=== PATIENT | male | born 1955 | race Caucasian/White ===

== ENCOUNTER → 2019-05-28 | Emergency (ER) | payer SELFPAY, OTHER | LOC: ER FS 16:36 ==

== ENCOUNTER 2023-05-08 09:34 | Inpatient (IN) | payer MEDICARE, MEDICAID ==
[~2023-05-08] VITALS: Ht 175.3 cm; Wt 65.0 kg
[~2023-05-08 09:34] MED LIST: HYDR-4226 PO; OXYC-199 PO
[2023-05-08] MEDS ORDERED: PANTOPRAZOLE 40 MG (PROTONIX) VIAL IV STA (09:53)
[2023-05-08] MEDS ORDERED: NS IV 1000 ML 1,000 ML IV STA ×3 (09:53→11:03)
[2023-05-08 10:13] LABS: BASOPHILS % (AUTO) 0 % (0-10); EOSINOPHILS # (AUTO) 0.1 10^3/uL (0.0-0.3); EOSINOPHILS % (AUTO) 0 % (0-10); HEMATOCRIT 36 % (40-54); HEMOGLOBIN 13.5 g/dL (13.3-17.7); LYMPHOCYTES # (AUTO) 0.8 10^3/uL (1.0-4.0); LYMPHOCYTES % (AUTO) 5 % (12-44); MEAN CORPUSCULAR HEMOGLOBIN 36 pg (25-34); MEAN CORPUSCULAR HGB CONC 37 g/dL (32-36); MEAN CORPUSCULAR VOLUME 97 fL (80-99); MEAN PLATELET VOLUME 10.2 fL (9.0-12.2); MONOCYTES # (AUTO) 0.9 10^3/uL (0.0-1.0); MONOCYTES % (AUTO) 6 % (0-12); NEUTROPHILS # (AUTO) 14.7 10^3/uL (1.8-7.8); NEUTROPHILS % (AUTO) 89 % (42-75); PLATELET COUNT 272 10^3/uL (130-400); WHITE BLOOD COUNT 16.6 10^3/uL (4.3-11.0)
--- NOTE | 2023-05-08 10:16 | ED General ---
General Stated Complaint: BRADYCARDIA; LOW BP Source of Information: Patient, Family (Son) Exam Limitations: Other (slow to answer questions) History of Present Illness Date Seen by Provider: May 08, 2023 Time Seen by Provider: 09:37 Initial Comments 68-year-old male presenting with complaints of over 3 weeks of decreased appetite, nausea, vomiting, orange-colored stools, general weakness, frequent falls. His son reports that normally they talk on the phone at least a few times a week and they had not been able to reach him over the last 3 weeks. When they came on Saturday to check on him he would only eat a small amount of any food but had been drinking water. He does have a history of drinking bourbon whiskey on a daily basis but denies having any alcohol for over a week. The son reports that his stools have been orange-colored and they were concerned that there was some blood mixed in with them. This morning when the son arrived at his father's house he found that his father had fallen in the shower. He helped him get up and states that his father had passed out while he was trying to walk out of the bathroom. He does have multiple bruises in various stages of healing from frequent falls. He denies hitting his head or having headache. He denies having abdominal pain but has been having a lot of epigastric pain and been using a lot of Tums for heartburn and indigestion. Son reports that he felt like his father had lost 50 to 75 pounds over the last 3 to 4 months. The patient does live alone and is usually able to take care of himself and his daily activities however in the last few weeks he has had a sudden rapid decline. They had tried to go to see the Dr. Sheth in the clinic today and they referred him to the emergency department as he had a low blood pressure around 80 systolic. On arrival to the emergency department here his blood pressures been anywhere from 80-104 systolic over 63-67 diastolic. Modifying Factors: improves with Movement (syncope and fainting with standing and walking) Associated Systoms: No Chest Pain, No Cough, No Diaphoresis, No Fever/Chills, No Headaches; Loss of Appetite, Malaise, Nausea/Vomiting; No Seizure, No Shortness of Air; Syncope, Weakness (generalized) Allergies and Home Medications Allergies Coded Allergies: No Known Drug Allergies (Unverified , 05/28/19) Patient Home Medication List Home Medication List Reviewed: Yes Oxycodone HCl/Acetaminophen (Percocet 5-325 mg Tablet) 1 Each Tablet, 1 TAB PO Q4H PRN for PAIN-MODERATE Prescribed by: ENZO BROTHERS on 05/28/19 8203 Review of Systems Review of Systems Constitutional: No chills, No fever; malaise, weakness EENTM: other (dry mouth) Respiratory: No cough, No short of breath Cardiovascular: No chest pain, No edema Gastrointestinal: heartburn, nausea, vomiting, other (orange colored stools) Genitourinary: No dysuria Musculoskeletal: No back pain; muscle weakness (generalized) Skin: see HPI Psychiatric/Neurological: Denies Headache; Weakness (general) Hematologic/Lymphatic: Easy Bruising Past Kmmphyx-Rebylu-Vfzfek Hx Patient Social History Alcohol Use?: Yes Alcohol type: Hard Liquor Alcohol Frequency: Daily Seasonal Allergies Seasonal Allergies: No Past Medical History Surgery/Hospitalization HX: Hypertension, Tremors, Alcoholism Surgeries: Yes ("lazy eye" surgery) Respiratory: No Cardiac: Yes Hypertension Neurological: No Sexually Transmitted Disease: No Genitourinary: No Gastrointestinal: Yes Gastroesophageal Reflux Musculoskeletal: No Endocrine: No HEENT: No Cancer: No Psychosocial: Yes Anxiety Integumentary: No Blood Disorders: No Physical Exam Vital Signs Vital Signs - First Documented 05/08/23 09:37 Temp 35.6 Pulse 85 Resp 16 B/P (MAP) 88/75 (79) Pulse Ox 97 O2 Delivery Room Air Capillary Refill : Height, Weight, BMI Height: 5'7.00" Weight: 192lbs. oz. 87.534899ep; BMI Method:Stated General Appearance: Chronically ill, Thin, Other (multiple bruises in various stages of healing in various areas of body) HEENT: PERRL/EOMI; No Moist Mucous Membranes (dry mucous membranes with thick white mucous) Neck: Full Range of Motion, Normal Inspection, Non Tender, Supple Respiratory: Chest Non Tender, Lungs Clear, Normal Breath Sounds, No Accessory Muscle Use, No Respiratory Distress Cardiovascular: Regular Rate, Rhythm, Normal Peripheral Pulses Gastrointestinal: Normal Bowel Sounds, No Pulsatile Mass, Non Tender, Soft Rectal: Decreased Tone, Heme Positive Stool, Other (felt to have fecal impa ction as he had large amount of stool that was firm and orange in color. I did digital disimpaction to remove some of the harder stool and break up what was in his rectum) Back: No CVA Tenderness, No Vertebral Tenderness Extremity: Normal Capillary Refill, Normal Inspection, No Pedal Edema Neurologic/Psychiatric: Alert, Oriented x3, account assistant II-XII Norm as Tested Skin: Warm/Dry, Ecchymosis (various bruises in multiple areas in various stages of healing), Pallor Focused Exam Lactate Level 05/08/23 09:57: Lactic Acid Level 5.09*H 05/08/23 12:25: Lactic Acid Level 2.27*H Lactic Acid Level Laboratory Tests Test 05/08/23 09:57 05/08/23 12:25 Lactic Acid Level 5.09 MMOL/L (0.50-2.00) *H 2.27 MMOL/L (0.50-2.00) *H Progress/Results/Core Measures Suspected Sepsis SIRS Temperature: Pulse: Respiratory Rate: Laboratory Tests 05/08/23 09:57: White Blood Count 16.6H Blood Pressure / Mean: 05/08/23 09:57: Lactic Acid Level 5.09*H 05/08/23 12:25: Lactic Acid Level 2.27*H Laboratory Tests 05/08/23 09:57: Creatinine 2.44H, INR Comment 1.4, Platelet Count 272, Total Bilirubin 3.6H Results/Orders Lab Results Laboratory Tests Test 05/08/23 09:57 05/08/23 10:45 05/08/23 12:25 Range/Units White Blood Count 16.6 H 4.3-11.0 10^3/uL Red Blood Count 3.76 L 4.30-5.52 10^6/uL Hemoglobin 13.5 13.3-17.7 g/dL Hematocrit 36 L 40-54 % Mean Corpuscular Volume 97 80-99 fL Mean Corpuscular Hemoglobin 36 H 25-34 pg Mean Corpuscular Hemoglobin Concent 37 H 32-36 g/dL Red Cell Distribution Width 13.7 10.0-14.5 % Platelet Count 272 130-400 10^3/uL Mean Platelet Volume 10.2 9.0-12.2 fL Immature Granulocyte % (Auto) 1 % Neutrophils (%) (Auto) 89 H 42-75 % Lymphocytes (%) (Auto) 5 L 12-44 % Monocytes (%) (Auto) 6 0-12 % Eosinophils (%) (Auto) 0 0-10 % Basophils (%) (Auto) 0 0-10 % Neutrophils # (Auto) 14.7 H 1.8-7.8 10^3/uL Lymphocytes # (Auto) 0.8 L 1.0-4.0 10^3/uL Monocytes # (Auto) 0.9 0.0-1.0 10^3/uL Eosinophils # (Auto) 0.1 0.0-0.3 10^3/uL Basophils # (Auto) 0.0 0.0-0.1 10^3/uL Immature Granulocyte # (Auto) 0.2 H 0.0-0.1 10^3/uL Neutrophils % (Manual) 79 % Lymphocytes % (Manual) 6 % Monocytes % (Manual) 5 % Eosinophils % (Manual) 0 % Basophils % (Manual) 0 % Band Neutrophils 10 % Nucleated Red Blood Cells 2 Platelet Estimate NORMAL Hypochromasia SLIGHT Macrocytosis SLIGHT Prothrombin Time 17.2 H 12.2-14.7 SEC INR Comment 1.4 0.8-1.4 Activated Partial Thromboplast Time 32 24-35 SEC Sodium Level 127 L 135-145 MMOL/L Potassium Level 3.6 3.6-5.0 MMOL/L Chloride Level 78 L 98-107 MMOL/L Carbon Dioxide Level 28 21-32 MMOL/L Anion Gap 21 H 5-14 MMOL/L Blood Urea Nitrogen 68 H 7-18 MG/DL Creatinine 2.44 H 0.60-1.30 MG/DL Estimat Glomerular Filtration Rate 28 BUN/Creatinine Ratio 28 Glucose Level 220 H 70-105 MG/DL Lactic Acid Level 5.09 *H 2.27 *H 0.50-2.00 MMOL/L Calcium Level 11.5 H 8.5-10.1 MG/DL Corrected Calcium 11.7 H 8.5-10.1 MG/DL Magnesium Level 2.1 1.6-2.4 MG/DL Total Bilirubin 3.6 H 0.1-1.0 MG/DL Aspartate Amino Transf (AST/SGOT) 28 5-34 U/L Alanine Aminotransferase (ALT/SGPT) 36 0-55 U/L Alkaline Phosphatase 126 40-136 U/L Troponin I < 0.30 <0.30 NG/ML Pro-B-Type Natriuretic Peptide 1452.0 H <125.0 PG/ML Total Protein 6.9 6.4-8.2 GM/DL Albumin 3.7 3.2-4.5 GM/DL Lipase 19 8-78 U/L Serum Alcohol < 10 <10 MG/DL Ammonia 31 11-32 UMOL/L Urine Color ORANGE Urine Clarity SL CLOUDY Urine pH 5.5 5-9 Urine Specific [place] 1.020 1.016-1.022 Urine Protein TRACE H NEGATIVE Urine Glucose (UA) NEGATIVE NEGATIVE Urine Ketones TRACE H NEGATIVE Urine Nitrite POSITIVE H NEGATIVE Urine Bilirubin 2+ H NEGATIVE Urine Urobilinogen 4.0 < = 1.0 MG/DL Urine Leukocyte Esterase NEGATIVE NEGATIVE Urine RBC (Auto) 2+ H NEGATIVE Urine RBC 10-25 H /HPF Urine WBC 2-5 /HPF Urine Squamous Epithelial Cells NONE /HPF Urine Crystals NONE /LPF Urine Bacteria FEW H /HPF Urine Casts PRESENT /LPF Urine Hyaline Casts >50 H /LPF Urine Mucus MODERATE H /LPF Urine Culture Indicated YES Urine Opiates Screen NEGATIVE NEGATIVE Urine Oxycodone Screen NEGATIVE NEGATIVE Urine Methadone Screen NEGATIVE NEGATIVE Urine Propoxyphene Screen NEGATIVE NEGATIVE Urine Barbiturates Screen NEGATIVE NEGATIVE Ur Tricyclic Antidepressants Screen NEGATIVE NEGATIVE Urine Phencyclidine Screen NEGATIVE NEGATIVE Urine Amphetamines Screen NEGATIVE NEGATIVE Urine Methamphetamines Screen NEGATIVE NEGATIVE Urine Benzodiazepines Screen POSITIVE H NEGATIVE Urine Cocaine Screen NEGATIVE NEGATIVE Urine Cannabinoids Screen NEGATIVE NEGATIVE My Orders Orders - ASHLEY DASH MD Cbc With Automated Diff (05/08/23 09:53) Magnesium (05/08/23 09:53) Ekg Tracing (05/08/23 09:53) Comprehensive Metabolic Panel (05/08/23 09:53) Protime With Inr (05/08/23 09:53) Partial Thromboplastin Time (05/08/23 09:53) O2 (05/08/23 09:53) Monitor-Rhythm Ecg Trace Only (05/08/23 09:53) Ed Iv/Invasive Line Start (05/08/23 09:53) Lipase (05/08/23 09:53) Troponin I Fs (05/08/23 09:53) Probnp Fs (05/08/23 09:53) Ct Chest/Abdomen/Pelvis W (05/08/23 09:53) Blood Culture (05/08/23 09:53) Lactic Acid Analyzer (05/08/23 09:53) Ns Iv 1000 Ml (Sodium Chloride 0.9%) (05/08/23 09:53) Pantoprazole Injection (Protonix Injecti (05/08/23 09:53) Ua Culture If Indicated (05/08/23 09:53) Alcohol (05/08/23 09:53) Drug Screen Stat (Urine) (05/08/23 09:53) Ct Head/Cervical Spine Wo (05/08/23 09:53) Manual Differential (05/08/23 09:57) Ns Iv 1000 Ml (Sodium Chloride 0.9%) (05/08/23 10:34) Ondansetron Injection (Zofran Injectio (05/08/23 10:34) Ammonia (05/08/23 10:44) Ceftriaxone Iv/Im (Rocephin Iv/Im) (05/08/23 11:03) Antacid Suspension (Mylanta Suspension (05/08/23 11:03) Ns Iv 1000 Ml (Sodium Chloride 0.9%) (05/08/23 11:03) Fecal Occult Bedside (05/08/23 11:08) Iohexol Injection (Omnipaque 350 Mg/Ml 1 (05/08/23 11:15) Received Contrast (Hold Metformin- Contr (05/08/23 11:15) Ns (Ivpb) (Sodium Chloride 0.9% Ivpb Bag (05/08/23 11:15) Moyer Cath (05/08/23 11:51) Ed Admission (Communication) (05/08/23 12:00) Urine Culture (05/08/23 12:25) Medications Given in ED Current Medications Medications Dose Ordered Sig/Cristiane Route Start Time Stop Time Status Last Admin Dose Admin Iohexol 100 ml ONCE ONCE IV 05/08/23 11:15 05/08/23 11:17 DC 05/08/23 11:18 50 ML Sodium Chloride 100 ml ONCE ONCE IV 05/08/23 11:15 05/08/23 11:17 DC 05/08/23 11:18 100 ML Vital Signs/I&O 05/08/23 05/08/23 09:37 12:55 Temp 35.6 35.6 Pulse 85 88 Resp 16 16 B/P (MAP) 88/75 (79) 110/66 Pulse Ox 97 96 O2 Delivery Room Air Room Air Capillary Refill : Progress Note #1: Progress Note Potential life-threatening diagnosis of esophageal varices, peptic ulcer disease, alcoholic gastritis, colitis, diverticulitis, dehydration, liver failure, renal failure, myocardial infarction, GI bleed, sepsis. Obtain peripheral IV access x2 and send labs for complete blood count, comprehensive metabolic profile, alcohol, pro time, PTT, troponin, proBNP, lipase, urinalysis, urine drug screen. Placed on cardiac youth nutritional monitor and initially his heart rate and rhythm on my personal interpretation was sinus rhythm with a heart rate of around 100 bpm with frequent PVCs. Obtain electrocardiogram to further delineate his heart rate and rhythm and look for signs of ischemia. Administer normal saline 1 L IV fluid bolus for hydration, pantoprazole 40 mg IV for possible gastritis and peptic ulcer disease. With his Hemoccult bedside test showing positive and having orange-colored stool will add an additional liter of normal saline for IV fluid hydration. Added blood cultures with lactic acid to look for signs of infection and/or sepsis or ischemic bowel. CT scan of the chest abdomen and pelvis with IV contrast to look for signs of esophageal varices, pulmonary mass, bowel perforation, ischemic bowel, colitis, diverticulitis, bowel mass. CT scan of the head without IV contrast to look for signs of intracranial hemorrhage, skull fracture, stroke with his complaint of generalized weakness and syncope with standing and moving as well as frequent falls and some confusion. Anticipate transfer to a hospital setting based on his findings of hypotension, syncope, GI bleed. Progress Note #2: Time: 10:33 Progress Note Lab called to inform us that his lactic acid was elevated to 5.09. His complete blood count showed an elevated white blood cell count of 16.6 with 89% ne utrophils and 5% lymphocytes. His hemoglobin was 13.5 with hematocrit of 36 and platelets of 272. His coagulation factors showed a pro time of 17.2 with an INR of 1.4 and PTT of 32. This is slightly elevated to go along with possible cirrhosis or liver disease. He is not severely anemic to indicate the large amount of bleeding with his gut since he was heme positive on his Hemoccult but his hemoglobin is low normal at 13.5. We will add on a gram of Rocephin or ceftriaxone IV for possible sepsis, esophageal varices, alcohol gastritis, peptic ulcer disease. We will order another liter of fluid at 250 mils an hour after the initial 2 L bolus. His blood pressure has improved to 100-110 systolic as he is receiving IV fluid for hydration. Progress Note #3: Time: 11:00 Progress Note Add on an ammonia level with the patient's confusion at times and having a history of alcoholism. His comprehensive metabolic profile showed elevated BUN to 68 with a creatinine of 2.44. Part of the BUN elevation could be related to GI bleeding. He also could be dehydrated as he has not been eating and drinking normally. With the elevation of his creatinine to 2.44 he likely is dehydrated as well however I do not have any baseline labs for comparison. He does show a low sodium of 127 with potassium low normal at 3.6. Chloride low at 78 and CO2 normal at 28. His glucose was slightly elevated to 220. His total bilirubin was elevated to 3.6 but his other liver enzymes were not elevated. This might be related back to again hydration as well as GI bleeding and cirrhosis. His troponin I was less than 0.3 which would be negative. His alcohol level was less than 10. Lipase was normal at 19. His proBNP was elevated to 1452. He was asking for something for heartburn and indigestion so a dose of Maalox was ordered in addition to Zofran 4 mg IV. Continue the IV fluids at 250 mils an hour. His heart rate is 82 sinus rhythm with oxygen sat of 99 to 100% on room air. Blood pressure staying stable around 110 systolic. 1126 on my personal interpretation and review of the CT scan of the head and cervical spine without IV contrast I did not appreciate any acute intracranial hemorrhage or fracture. He did have advanced atrophy. His cervical spine showed degenerative changes. His CT scan of the chest abdomen and pelvis with IV contrast on my personal interpretation and review I did not appreciate any acute pneumonia, bowel perforation or free air, colitis, diverticulitis. He did appear to have calcified gallstone in the gallbladder but I did not appreciate any acute pericholecystic fluid or signs of cholecystitis. Progress Note #4: Time: 11:54 Progress Note d/w Dr. Moore, Hospitalist for [facility] admits today. Advised her of the patient's presentation with low blood pressure of 80 systolic but improved with IV fluids and hydration. Found to have positive Hemoccult for GI bleed. However his hemoglobin was stable at 13.5. He did have an elevated white count of 16.6 with 79 neutrophils and 10% bands on manual differential. Elevated lactic acid of 5.09 which was being treated with IV fluids as well as he was given 1 g of Rocephin IV in case there was infection. His kidney function was elevated with a BUN of 68 which could indicate his GI bleed as well as dehydration and creatinine of 2.44. There is no baseline for comparison. He did have an elevated total bilirubin to 3.6 but AST and ALT were not elevated. Troponin was negative at less than 0.3. His he did have an elevated proBNP of 1452. She admitted to him to the ICU as an inpatient admission and plan to do queued o rders. She did request I speak with Dr. Lancaster the on-call surgeon of the day so that he was aware of the patient as well. I advised her I was having nurses place a moyer to document his urine output and watch his Input and output more accurately. 1249 Repet lactic acid down to 2.27 from 5.09 as he was hydrated with 2 liters of Normal saline as bolus and then getting a 3rd liter of NS at 250 ml/hr. Urinalysis showed mild elevation of the specific gravity to 1.020. He did have positive nitrites and 2+ bilirubin with 10-25 red blood cells a few bacteria and greater than 50 hyaline casts. He did receive 1 g of Rocephin IV for possible sepsis with his elevated lactic acid and white blood cell count. This could certainly be a source for infection with his urine showing nitrites and hyaline cast. A culture was reflexed. ECG Initial ECG Impression Date: May 08, 2023 Initial ECG Impression Time: 10:14 Initial ECG Rate: 88 Initial ECG Rhythm: Normal Sinus Initial ECG Comparisson: No Previous ECG Available Comment On my personal interpretation and review his electrocardiogram shows sinus rhythm with frequent premature supraventricular complexes. Heart rate is 88 bpm. UT interval 207 ms. QT interval 404 ms with a QTc interval [address] elevation. Has global T wave flattening. There is no prior tracing for comparison. Diagnostic Imaging Diagonstic Imaging: CT Plain Films/CT/US/NM/MRI: c-spine, head Comments [facility] NAME: JAMILAH BLEDSOE Leonel [facility] REC#: [id number] PT STATUS: REG ER : 1955 PHYSICIAN: ASHLEY DASH MD ADMIT DATE: 05/08/23/ER FS Draft Date of Exam:05/08/23 CT HEAD/CERVICAL SPINE WO PROCEDURE: CT head and CT cervical spine without contrast. TECHNIQUE: Multiple contiguous axial images were obtained through the brain and cervical spine without the use of intravenous contrast. Sagittal and coronal reformations through the cervical spine were then performed. Auto Exposure Controls were utilized during the CT exam to meet ALARA standards for radiation dose reduction. INDICATION: Fall with head and neck pain. COMPARISON: No prior studies are available for comparison. FINDINGS: CT HEAD: The ventricles and sulci are appropriate for the patient's age. No sulcal effacement or midline shift is identified. No acute intra-axial or extra-axial hemorrhage is detected. The cisterns are patent. The visualized paranasal sinuses are clear. IMPRESSION: No acute intracranial process is detected. CT CERVICAL SPINE: There is somewhat hyperlordotic curvature to the cervical spine. There is multilevel degenerative disc disease with variable disc space narrowing and marginal spurring. No fractures are identified. The prevertebral tissues are within normal limits. The odontoid is intact. IMPRESSION: Cervical spondylosis. No acute bony abnormality is detected. Dictated on workstation # [id number] Dict: 05/08/23 1123 Trans: 05/08/23 1131 [id number] Interpreted by: SHAYE OJEDA MD Electronically signed by: Reviewed: Reviewed by Me (I reviewed the radiologist report at 1152) Diagonstic Imaging: CT Plain Films/CT/US/NM/MRI: chest, abdomen, pelvis Comments [facility] [place] NAME: JAMILAH BLEDSOE [facility] REC#: [id number] PT STATUS: REG ER : 1955 PHYSICIAN: ASHLEY DASH MD ADMIT DATE: 05/08/23/ER FS Draft Date of Exam:05/08/23 CT CHEST/ABDOMEN/PELVIS W PROCEDURE: CT chest, abdomen, and pelvis with contrast. TECHNIQUE: Multiple contiguous axial images were obtained through the chest, abdomen, and pelvis after the administration of intravenous contrast. Auto Exposure Controls were utilized during the CT exam to meet ALARA standards for radiation dose reduction. INDICATION: Weight loss with gastrointestinal bleed as well as nausea and vomiting, heartburn and epigastric pain. No prior studies are available for comparison. CT CHEST: The esophagus is diffusely thick walled. No axillary lymphadenopathy is identified. No definite mediastinal or hilar lymphadenopathy is detected. No pericardial or pleural fluid is identified. No pulmonary infiltrates, nodules or masses are detected. IMPRESSION: There is diffuse wall thickening to the esophagus, perhaps owing to esophagitis. No other significant abnormality is detected. CT abdomen and pelvis: There is generalized low attenuation throughout the liver. No discrete liver mass is identified. Gallbladder contains a small stone. There is no biliary ductal dilatation. The pancreas and spleen are unremarkable. No adrenal mass is identified. Kidneys contain tiny cortical low-attenuation lesions suggestive of a small cysts. Aorta is heavily calcified but nonaneurysmal. No central retroperitoneal or mesenteric lymphadenopathy is detected. Small and large bowel loops are normal in caliber. There is no obstruction. No inflammatory changes in the abdomen or pelvis is seen. There is no free fluid or fluid collection. The bladder and prostate are unremarkable. There is a small fat-containing left inguinal hernia. No pelvic lymphadenopathy is detected. Bony structures are unremarkable. IMPRESSION: 1. Hepatic steatosis. 2. Cholelithiasis. 3. Otherwise unremarkable CT of the abdomen and pelvis. No lymphadenopathy, mass or acute process is detected. 4. Fat-containing left inguinal hernia. Dictated on workstation # [id number] Dict: 05/08/23 1128 Trans: 05/08/23 1138 [facility] [id number] Interpreted by: SHAYE OJEDA MD Electronically signed by: Reviewed: Reviewed by Me (I reviewed the radiologist report at 1152) Critical Care Note Critical Care Total Time (minutes) 75 minutes Progress I spent at least 75 minutes of critical care time with the patient. Time excludes separately billable procedures. Time was spent obtaining history from the patient, his son as an independent historian as the patient did have some confusion and confabulation. Time was also spent in ordering test and reviewing results, ordering interventions and reviewing response, discussion with consultants, discussion with patient and his son as an independent alliance party due to the patient's encephalopathy, documentation in the chart. Patient was at risk of cardiovascular collapse as well as sepsis and renal failure. This required my immediate and direct intervention and management to help stabilize his condition and arrange for transfer to a higher level of care. Departure Communication (Admissions) Time/Spoke to Admitting Phy: 11:54 d/w Dr. Moore, Hospitalist for [facility] admits today. Advised her of the patient's presentation with low blood pressure of 80 systolic but improved with IV fluids and hydration. Found to have positive Hemoccult for GI bleed. However his hemoglobin was stable at 13.5. He did have an elevated white count of 16.6 with 79 neutrophils and 10% bands on manual differential. Elevated lactic acid of 5.09 which was being treated with IV fluids as well as he was given 1 g of Rocephin IV in case there was infection. His kidney function was elevated with a BUN of 68 which could indicate his GI bleed as well as dehydration and creatinine of 2.44. There is no baseline for comparison. He did have an elevated total bilirubin to 3.6 but AST and ALT were not elevated. Troponin was negative at less than 0.3. His he did have an elevated proBNP of 1452. She admitted to him to the ICU as an inpatient admission and plan to do queued orders. She did request I speak with Dr. Lancaster the on-call surgeon of the day so that he was aware of the patient as well. I advised her I was having nurses place a moyer to document his urine output and watch his Input and output more accurately. Time/Spoke to Consulting Phy: 11:56 D/w Dr. Lancaster, immigration paralegal Surgeon for [facility]. Advised him of the patient being admitted to the ICU for GI bleed and hypotension with dehydration and acute kidney injury. Currently his hemoglobin was stable and he was not anemic or requiring transfusion. Blood pressure was improving with IV fluids and hydration. Given Protonix [address] Cano will be placing queued orders Impression Primary Impression: GI bleed Qualified Codes: K92.2 - Gastrointestinal hemorrhage, unspecified Additional Impressions: Syncope Qualified Codes: R55 - Syncope and collapse Hypotension Qualified Codes: I95.9 - Hypotension, unspecified Acute kidney injury Dehydration Elevated lactic acid level Acute cystitis with hematuria Acute metabolic encephalopathy Disposition: 30 STILL A PATIENT Condition: Critical Admissions Decision to Admit Reason: Admit from ER (General) Decision to Admit/Date: May 08, 2023 Time/Decision to Admit Time: 11:54 Departure-Patient Inst. Referrals: SELF,GRABIEL MD (PCP) Primary Care Physician ASHLEY DASH MD May 08, 2023 10:16
[2023-05-08 10:27] LABS: INR 1.4 (0.8-1.4); PROTHROMBIN TIME PATIENT 17.2 SEC (12.2-14.7)
[2023-05-08] MEDS ORDERED: ONDANSETRON 4 MG/2 ML (SDV) Z0FRAN IVP STA (10:34)
[2023-05-08 10:45] LABS: ALANINE AMINOTRANSFERASE 36 U/L (0-55); ALKALINE PHOSPHATASE 126 U/L (40-136); BILIRUBIN,TOTAL 3.6 MG/DL (0.1-1.0); BUN/CREATININE RATIO 28; CALCIUM 11.5 MG/DL (8.5-10.1); CARBON DIOXIDE 28 MMOL/L (21-32); CHLORIDE 78 MMOL/L (98-107); CREATININE SERUM 2.44 MG/DL (0.60-1.30); GFR ESTIMATED 28; GLUCOSE 220 MG/DL (70-105); MAGNESIUM 2.1 MG/DL (1.6-2.4); POTASSIUM 3.6 MMOL/L (3.6-5.0); SODIUM 127 MMOL/L (135-145)
[2023-05-08 10:46] LABS: ALBUMIN 3.7 GM/DL (3.2-4.5); LIPASE 19 U/L (8-78); TOTAL PROTEIN 6.9 GM/DL (6.4-8.2)
[2023-05-08 10:53] LABS: BAND NEUTROPHILS 10 %; BASOPHILS % (MANUAL) 0 %; EOSINOPHILS % (MANUAL) 0 %; LYMPHOCYTES % (MANUAL) 6 %; MONOCYTES % (MANUAL) 5 %; NEUTROPHILS % (MANUAL) 79 %; NUCLEATED RED BLOOD CELLS 2
[2023-05-08 10:54] LABS: HYPOCHROMASIA SLIGHT; PLATELET ESTIMATE NORMAL
[2023-05-08] MEDS ORDERED: ANTACID SUSP 30 ML UDC (MYLANTA) PO STA (11:03)
[2023-05-08] MEDS ORDERED: cefTRIAXone IV/IM 1,000 MG in NS (IVPB) 50 ML IV STA (11:03)
[2023-05-08] MEDS ORDERED: IOHEXOL 350 MG/ML 100 ML (OMNIPAQUE 350) VIAL IV ONE (11:15)
[2023-05-08] MEDS ORDERED: NS 100 ML (IVPB) BAG IV ONE (11:15)
[2023-05-08] MEDS ORDERED: HOLD METFORMIN - RECEIVED CONTRAST 20 ML VIAL IV SCH (11:15)
--- NOTE | 2023-05-08 11:31 | Diagnostic Imaging Report ---
PROCEDURE: CT head and CT cervical spine without contrast. TECHNIQUE: Multiple contiguous axial images were obtained through the brain and cervical spine without the use of intravenous contrast. Sagittal and coronal reformations through the cervical spine were then performed. Auto Exposure Controls were utilized during the CT exam to meet ALARA standards for radiation dose reduction. INDICATION: Fall with head and neck pain. COMPARISON: No prior studies are available for comparison. FINDINGS: CT HEAD: The ventricles and sulci are appropriate for the patient's age. No sulcal effacement or midline shift is identified. No acute intra-axial or extra-axial hemorrhage is detected. The cisterns are patent. The visualized paranasal sinuses are clear. IMPRESSION: No acute intracranial process is detected. CT CERVICAL SPINE: There is somewhat hyperlordotic curvature to the cervical spine. There is multilevel degenerative disc disease with variable disc space narrowing and marginal spurring. No fractures are identified. The prevertebral tissues are within normal limits. The odontoid is intact. IMPRESSION: Cervical spondylosis. No acute bony abnormality is detected. Dictated by: Dictated on workstation # [id number]
--- NOTE | 2023-05-08 11:38 | Diagnostic Imaging Report ---
PROCEDURE: CT chest, abdomen, and pelvis with contrast. TECHNIQUE: Multiple contiguous axial images were obtained through the chest, abdomen, and pelvis after the administration of intravenous contrast. Auto Exposure Controls were utilized during the CT exam to meet ALARA standards for radiation dose reduction. INDICATION: Weight loss with gastrointestinal bleed as well as nausea and vomiting, heartburn and epigastric pain. No prior studies are available for comparison. CT CHEST: The esophagus is diffusely thick walled. No axillary lymphadenopathy is identified. No definite mediastinal or hilar lymphadenopathy is detected. No pericardial or pleural fluid is identified. No pulmonary infiltrates, nodules or masses are detected. IMPRESSION: There is diffuse wall thickening to the esophagus, perhaps owing to esophagitis. No other significant abnormality is detected. CT abdomen and pelvis: There is generalized low attenuation throughout the liver. No discrete liver mass is identified. Gallbladder contains a small stone. There is no biliary ductal dilatation. The pancreas and spleen are unremarkable. No adrenal mass is identified. Kidneys contain tiny cortical low-attenuation lesions suggestive of a small cysts. Aorta is heavily calcified but nonaneurysmal. No central retroperitoneal or mesenteric lymphadenopathy is detected. Small and large bowel loops are normal in caliber. There is no obstruction. No inflammatory changes in the abdomen or pelvis is seen. There is no free fluid or fluid collection. The bladder and prostate are unremarkable. There is a small fat-containing left inguinal hernia. No pelvic lymphadenopathy is detected. Bony structures are unremarkable. IMPRESSION: 1. Hepatic steatosis. 2. Cholelithiasis. 3. Otherwise unremarkable CT of the abdomen and pelvis. No lymphadenopathy, mass or acute process is detected. 4. Fat-containing left inguinal hernia. Dictated by: Dictated on workstation # [id number]
[2023-05-08 12:33] LABS: CLARITY,URINE SL CLOUDY; COLOR,URINE ORANGE; GLUCOSE, URINE (UA) NEGATIVE (NEGATIVE); KETONES,URINE TRACE (NEGATIVE); LEUKOCYTE ESTERASE ,URINE NEGATIVE (NEGATIVE); NITRITE,URINE POSITIVE (NEGATIVE); PH,URINE 5.5 (5-9); PROTEIN,URINE TRACE (NEGATIVE)
[2023-05-08 12:44] LABS: BACTERIA,URINE FEW /HPF; BILIRUBIN,URINE 2+ (NEGATIVE)
[2023-05-08 12:45] LABS: HYALINE CASTS, URINE >50 /LPF
[2023-05-08 12:46] LABS: AMPHETAMINE SCREEN, URINE NEGATIVE (NEGATIVE); BARBITURATE SCREEN URINE NEGATIVE (NEGATIVE); BENZODIAZEPINES SCREEN URINE POSITIVE (NEGATIVE); CANNABINOID SCREEN, URINE NEGATIVE (NEGATIVE); COCAINE SCREEN URINE NEGATIVE (NEGATIVE); METHADONE STAT NEGATIVE (NEGATIVE); OPIATE SCREEN URINE NEGATIVE (NEGATIVE); OXYCODONE STAT NEGATIVE (NEGATIVE); PROPOXYPHENE STAT NEGATIVE (NEGATIVE); TRICYCLIC ANTIDEPRESSANTS SCRE NEGATIVE (NEGATIVE)
--- NOTE | 2023-05-08 13:58 | History & Physical-Hospitalist ---
History of Present Illness HPI/Chief Complaint Chief complaint: GI bleed HPI: This is a 68-year-old male former alcoholic who presented to the ER with bloody stools. Patient not cooperating. Dr. Lancaster will be consulted. Alcohol withdrawal protocol maintain Banana bag once a day to prevent Korsakoff psychosis and Warnicke's encephalopathy. Source: patient, RN/MD, old records Exam Limitations: clinical condition Date Seen 05/08/23 Time Seen by a Provider: 13:00 Attending Physician Kodak Sheth MD PCP Admitting Physician: Malena Moore DO Attending Physician: Malena Moore DO Referring Physician Date of Admission May 08, 2023 at 13:48 Home Medications & Allergies Home Medications Reviewed patient Home Medication Reconciliation performed by pharmacy medication reconciliations application technician and/or nursing. Patients Allergies have been reviewed. Allergies Allergies Coded Allergies No Known Drug Allergies (Unverified05/28/19) Past Pnuqqxz-Uttuno-Klifjx Hx Patient Social History Marrital Status: single Employed/Student: retired Tobacco Use?: No Smoking Status: Current Everyday Smoker Use of E-Cig and/or Vaping dev: No Substance use?: No Alcohol Use?: Yes Alcohol type: Hard Liquor Additional alcohol type: [place] Alcohol Frequency: Daily Additional Alcohol Comments: Unknown amount reports last use 30 days ago Immunizations Up To Date First/Initial COVID19 Vaccinat: Denies Seasonal Allergies Seasonal Allergies: No Current Status Advance Directives: No Primary Language: Scottish Preferred Spoken Language: Scottish Past Medical History Hypertension Sexually Transmitted Disease: No Gastroesophageal Reflux Anxiety Blood Disorders: No Review of Systems Constitutional: see HPI Physical Exam Physical Exam Vital Signs Vital Signs - First Documented 05/08/23 05/08/23 09:37 19:35 Temp 35.6 Pulse 85 Resp 16 B/P (MAP) 88/75 (79) Pulse Ox 97 O2 Delivery Room Air O2 Flow Rate 0.00 FiO2 21 Capillary Refill : Less Than 3 Seconds Height, Weight, BMI Height: 5'7.00" Weight: 192lbs. oz. 87.447324qn; BMI Method:Stated General Appearance: Anxious, Chronically ill, Mild Distress, Thin Respiratory: Chest Non Tender, Lungs Clear, Normal Breath Sounds, No Accessory Muscle Use, No Respiratory Distress Cardiovascular: Regular Rate, Rhythm, No Edema, No Gallop, No JVD, No Murmur, Normal Peripheral Pulses Neurologic/Psychiatric: Alert, Depressed Affect, Disoriented Results Results/Procedures Labs Laboratory Tests 05/08/23 09:57 05/08/23 14:55 Patient resulted labs reviewed. Assessment/Plan Admission Diagnosis Assessment: GI bleed Alcoholism High risk for alcohol withdrawal Plan: [facility] ICU [facility] protocol Dr. Lancaster PPI Admission Status: Inpatient Order (span 2 midnights) Reason for Inpatient Admission: GI bleed MALENA MOORE DO May 08, 2023 13:58
[2023-05-08] MEDS ORDERED: ONDANSETRON 4 MG (ZOFRAN) ORAL DISSOLVE TAB PO PRN (14:30)
[2023-05-08] MEDS ORDERED: ONDANSETRON 4 MG (ZOFRAN) ORAL DISSOLVE TAB SL PRN (14:30)
[2023-05-08] MEDS ORDERED: diphenhydrAMINE 25 MG TAB (BENADRYL) PO PRN (14:30)
[2023-05-08] MEDS ORDERED: ANTACID SUSP 30 ML UDC (MYLANTA) PO PRN ×2 (14:30)
[2023-05-08] MEDS ORDERED: diphenhydrAMINE 50 MG/ML INJ (BENADRYL) IVP PRN (14:30)
[2023-05-08] MEDS ORDERED: ONDANSETRON 4 MG/2 ML (SDV) Z0FRAN IV PRN ×2 (14:30)
[2023-05-08] MEDS ORDERED: LACTULOSE SYRUP 10GM/15ML (ENULOSE) 30ML UDC PO PRN (14:30)
[2023-05-08] MEDS ORDERED: NS IV 500 ML 500 ML IV PRN (14:30)
[2023-05-08] MEDS ORDERED: SENNA W/DOCUSATE (SENOKOT S) TABLET PO PRN (14:30)
[2023-05-08] MEDS ORDERED: polyethylene glycoL POWDER 17 GM (MIRALAX) PACK PO PRN (14:30)
[2023-05-08] MEDS ORDERED: LORazepam 1 MG (ATIVAN) TAB PO PRN (14:30)
[2023-05-08] MEDS ORDERED: D5 1/2 NS 1000 ML IV SOLUTION 1,000 ML IV PRN (14:30)
[2023-05-08] MEDS ORDERED: LORazepam INJ 2 MG/ML (ATIVAN) VIAL IM/IV PRN (14:30)
[2023-05-08] MEDS ORDERED: MELATONIN 3 MG TABLET PO PRN (14:30)
[2023-05-08] MEDS ORDERED: 1/2 NS IV SOLUTION 1,000 ML IV PRN (14:30)
[2023-05-08] MEDS ORDERED: BISACODYL 10 MG SUPP (DULCOLAX) PR PRN (14:30)
[2023-05-08] MEDS ORDERED: LORazepam INJ 2 MG/ML (ATIVAN) VIAL IV PRN (14:30)
[2023-05-08] MEDS ORDERED: HYDROmorphone 2 MG/ML VIAL (DILAUDID) IV PRN (14:30)
[2023-05-08] MEDS ORDERED: ACETAMINOPHEN 325 MG TABLET PO PRN (14:30)
[2023-05-08] MEDS: THIAMINE INJECTION 100 MG, FOLIC ACID INJECTION 1 MG, VITAMIN MULTI INJECTION 10 ML, MA... IV SCH ×5 (15:19)
[2023-05-08 15:47] VITALS: BP 107/54
[2023-05-08] MEDS ORDERED: RT-ALBUTEROL SULF 2.5 MG/3 ML PRE-MIX VIAL INH PRN (16:00)
--- NOTE | 2023-05-08 16:42 | Diagnostic Imaging Report ---
EXAMINATION: US Abdomen limited. TECHNIQUE: Multiple real-time grayscale images were obtained over the right upper quadrant in various projections. HISTORY: Abdominal pain. COMPARISON: None available. FINDINGS: The liver is normal in size. The liver is normal in echogenicity. No focal lesions are seen. The portal vein is patent with hepatopedal flow. There are stones and sludge in the gallbladder. The gallbladder wall is slightly thickened measuring 0.4 cm. Sonographic Jerez sign is negative. Common duct is not seen due to bowel gas. There is no biliary ductal dilation. Pancreas is not well seen due to bowel gas. The right kidney is normal without hydronephrosis. IMPRESSION: 1. Stones and sludge in the gallbladder with mild wall thickening of the gallbladder which may represent cholecystitis. Consider HIDA for confirmation. Dictated by: Dictated on workstation # [id number]
--- NOTE | 2023-05-08 16:43 | Tele-ICU Consult ---
History of Present Illness History of Present Illness Date Seen by Provider: May 08, 2023 Time Seen by Provider: 16:43 Date of Admission History of Present Illness (Tele-ICU Physician , consultation as per request of PCP Service provided via interactive audio and video telecommunBrandtree E-CARE system to a patient admitted to ICU bed in [facility]. Available chart/ vitals / labs / Images reviewed H&P is from ER notes Patient's information available about PMH, Shx, Fhx allergy reviewed inEMR. ROS as per chart and RN report Now in ICU, hemodynamically stable Video assessment done using teleICU camera, rest of exam as per RN Discussed with RN. Hospital course: (05/08) 68 y/o - Syncope/Fall - GI Bleed (Hemacult +) - Hypotension. CT A/P = Cholelithiasis. A/P Hypotension - probably dehydration and LISA- improving with IVF - 3 L given = Infection and GIB less likely , w/up pending , empitic abx given ( CTchest , abd/pelvis - no acute abnormalities LISA - cont hydratiuon , monitor UO Suspected GIB - esophagitis by CT , gastritis with ETON ? - PPI IV - sx consulted Confusion - TME ? LISA Elev lactate - hypoperfusion - resolved with htdrataion Anemia - partially delutional , but GIB component is in consideration Hyponatremia - follow H/o ETOH use , last drink reportedly 1 w ago - follow on CIWA and vitamins s/p multiple falls - CTH and cerv spine - no abnormalities Lines : perip[h , (Central Line Necessity Reviewed) Ma: 05/08 OG: Nutrition: po Analgesia: Anxiety/ delirium VTE Prophylaxis: scd Stress Ulcer Prophylaxis: ppi bid Plans in collaboration with bedside consultants and IM MDs. Discussed with RN to reach out if any questions or concerns A total of 31 minutes of critical care time was devoted to this patient today, required to treat and/or prevent further deterioration of critical care condition ( as above ) I am remotely monitoring this patient from another state. I am unable to do the bedside exam, and history/physical and pertinent information is taken from oth er notes in the computer and bedside staff. Allergies and Home Medications Allergies Coded Allergies: No Known Drug Allergies (Unverified , 05/28/19) Home Medications Oxycodone HCl/Acetaminophen 1 Each Tablet, 1 TAB PO Q4H PRN for PAIN-MODERATE Prescribed by: ENZO BROTHERS on 05/28/19 1726 Past Medical/Social/Family Hx Patient Social History Tobacco Use?: No Use of E-Cig and/or Vaping dev: No Substance use?: No Alcohol Use?: Yes Alcohol type: Hard Liquor Additional alcohol type: [place] Alcohol Frequency: Daily Unknown amount reports last use 30 days ago Immunizations Up To Date First/Initial COVID19 Vaccinat: Denies Current Status Advance Directives: No Primary Language: Northern Irish Preferred Spoken Language: Northern Irish Review of Systems Constitutional: see HPI Focused Exam Lactate Level 05/08/23 09:57: Lactic Acid Level 5.09*H 05/08/23 12:25: Lactic Acid Level 2.27*H 05/08/23 14:55: Lactic Acid Level 1.85 Height, Weight, BMI Height: 5'7.00" Weight: 192lbs. oz. 87.715545no; BMI Method:Stated Lactic Acid Level Laboratory Tests Test 05/08/23 14:55 Lactic Acid Level 1.85 MMOL/L (0.50-2.00) Exam Exam Patient acknowledged, consented, and participated in this virtual visit which was conducted using real time audio/video Vital Signs Date Time Temp Pulse Resp B/P (MAP) Pulse Ox O2 Delivery O2 Flow Rate FiO2 05/08/23 16:00 84 22 86/47 (60) 100 Room Air 05/08/23 15:54 36.5 Room Air 05/08/23 15:47 35.6 82 98 05/08/23 15:15 82 20 107/54 (71) 98 Room Air 05/08/23 15:00 85 14 109/73 (85) 96 Room Air 05/08/23 14:45 82 15 106/66 (79) 98 Room Air 05/08/23 14:37 80 05/08/23 14:30 82 9 101/70 (80) 99 Room Air 05/08/23 14:15 85 8 99/70 (80) 100 Room Air 05/08/23 14:00 90 14 100/65 (77) 98 Room Air 05/08/23 13:45 85 112/68 (83) Room Air 05/08/23 12:55 35.6 88 16 110/66 96 Room Air 05/08/23 09:37 35.6 85 16 88/75 79 97 Room Air Height & Weight Height: 5'7.00" Weight: 192lbs. oz. 87.926738rd; BMI Method:Stated General Appearance: Chronically ill, Thin, Other (multiple bruises in various stages of healing in various areas of body) HEENT: PERRL/EOMI; No Moist Mucous Membranes (dry mucous membranes with thick white mucous) Neck: Full Range of Motion, Normal Inspection, Non Tender, Supple Respiratory: Chest Non Tender, Lungs Clear, Normal Breath Sounds, No Accessory Muscle Use, No Respiratory Distress Cardiovascular: Regular Rate, Rhythm, Normal Peripheral Pulses Capillary Refill: Less Than 3 Seconds Extremity: Normal Capillary Refill, Normal Inspection, No Pedal Edema Neurologic/Psychiatric: Alert, Oriented x3, charge master coordinator II-XII Norm as Tested Skin: Warm/Dry, Ecchymosis (various bruises in multiple areas in various stages of healing), Pallor Results Lab Laboratory Tests 05/08/23 09:57 05/08/23 14:55 Assessment/Plan Assessment/Plan 1 ISABEL BERG MD May 08, 2023 16:43
[2023-05-08] MEDS: inSUlin ASPART (NovoLOG) 1 UNIT/0.01 ML (CHARGE PER UNIT) SC SCH (18:15)
[2023-05-08] MEDS: POTASSIUM CL 10MEQ/50ML IVPB 50 ML IV SCH ×4 (18:34→21:33)
[2023-05-08] MEDS: DOCUSATE SODIUM 100 MG (COLACE) CAP PO SCH (20:04)
[2023-05-08] MEDS: PANTOPRAZOLE 40 MG (PROTONIX) VIAL IV SCH (20:12)
[2023-05-08] MEDS ORDERED: NOREPINEPHRINE 8 MG/250 ML 250 ML IV ONE (21:17)
[2023-05-08 21:41] LABS: HEMOGLOBIN 9.5 g/dL (13.3-17.7)
[2023-05-08 21:43] LABS: MEAN PLATELET VOLUME 10.3 fL (9.0-12.2); WHITE BLOOD COUNT 7.8 10^3/uL (4.3-11.0)
[2023-05-08] MEDS: NOREPINEPHRINE 8 MG/250 ML 250 ML IV SCH (22:09)
--- NOTE | 2023-05-08 22:11 | Consultation - Surgery ---
History of Present Illness History of Present Illness Patient Consulted On(serena/time) 05/08/23 17:06 Date Seen by Provider: May 08, 2023 Time Seen by Provider: 17:06 History of Present Illness Consult requested by Dr. Moore for GI bleed Patient is 68-year-old male with history of alcohol use to quit approximately a month ago. He has been ill for about 3 weeks he and family states. The son states he has not talked to him for about 3 weeks as well. Found him very weak and difficulty getting around with some confusion as well. This is not typical for him he the son states. He was having some nausea and vomiting and there is question of some blood visualized in his mouth and also with bowel movements. He was found to have heme positive stool. Reports approximately 80 pound weight loss. He is not having any abdominal pain. Feels little bit better at this time. He is found to be anemic. Patient poor historian. Never had EGD or colonoscopy. CT Chest Abdomen and pelvis done: CT CHEST: The esophagus is diffusely thick walled. No axillary lymphadenopathy is identified. No definite mediastinal or hilar lymphadenopathy is detected. No pericardial or pleural fluid is identified. No pulmonary infiltrates, nodules or masses are detected. IMPRESSION: There is diffuse wall thickening to the esophagus, perhaps owing to esophagitis. No other significant abnormality is detected. CT abdomen and pelvis: There is generalized low attenuation throughout the liver. No discrete liver mass is identified. Gallbladder contains a small stone. There is no biliary ductal dilatation. The pancreas and spleen are unremarkable. No adrenal mass is identified. Kidneys contain tiny cortical low-attenuation lesions suggestive of a small cysts. Aorta is heavily calcified but nonaneurysmal. No central retroperitoneal or mesenteric lymphadenopathy is detected. Small and large bowel loops are normal in caliber. There is no obstruction. No inflammatory changes in the abdomen or pelvis is seen. There is no free fluid or fluid collection. The bladder and prostate are unremarkable. There is a small fat-containing left inguinal hernia. No pelvic lymphadenopathy is detected. Bony structures are unremarkable. IMPRESSION: 1. Hepatic steatosis. 2. Cholelithiasis. 3. Otherwise unremarkable CT of the abdomen and pelvis. No lymphadenopathy, mass or acute process is detected. 4. Fat-containing left inguinal hernia. Allergies and Home Medications Allergies Coded Allergies: No Known Drug Allergies (Unverified , 05/28/19) Patient Home Medication List Home Medication List Reviewed: Yes Oxycodone HCl/Acetaminophen (Percocet 5-325 mg Tablet) 1 Each Tablet, 1 TAB PO Q4H PRN for PAIN-MODERATE Prescribed by: ENZO BROTHERS on 05/28/19 8484 Past Ewqaeeu-Izzyma-Idwsdk Hx Patient Social History Smoking Status: Current Everyday Smoker 2nd Hand Smoke Exposure: No Recent Hopitalizations: No Alcohol Use?: Yes Substance type: Caffeine Seasonal Allergies Seasonal Allergies: No Surgeries History of Surgeries: Yes ("lazy eye" surgery) Respiratory History of Respiratory Disorde: No Cardiovascular History of Cardiac Disorders: Yes Cardiac Disorders: Hypertension Neurological History of Neurological Disord: No Reproductive System Sexually Transmitted Disease: No Genitourinary History of Genitourinary Disor: No Gastrointestinal History of Gastrointestinal Di: Yes Gastrointestinal Disorders: Gastroesophageal Reflux Musculoskeletal History of Musculoskeletal Dis: No Endocrine History of Endocrine Disorders: No HEENT History of HEENT Disorders: No Cancer History of Cancer: No Psychosocial History of Psychiatric Problem: Yes Behavioral Health Disorders: Anxiety Integumentary History of Skin or Integumenta: No Blood Transfusions History of Blood Disorders: No Reviewed Nursing Assessment Reviewed/Agree w Nursing PMH: Yes Family Medical History Significant Family History: No Pertinent Family Hx Review of Systems-General Constitutional: No chills, No diaphoresis; weakness, weight loss EENTM: No blurred vision, No double vision Respiratory: No cough, No dyspnea on exertion Cardiovascular: No chest pain, No palpitations Gastrointestinal: No abdominal pain; nausea, vomiting Genitourinary: No decreased output, No discharge Musculoskeletal: No back pain, No joint pain Skin: No change in color, No change in hair/nails Psychiatric/Neurological: Denies Anxiety, Denies Depressed, Denies Emotional Problems All Other Systems Reviewed Negative Unless Noted: Yes (Negative excepted noted.) Physical Exam-General Problems Physical Exam Vital Signs Vital Signs - First Documented 05/08/23 05/08/23 09:37 19:35 Temp 35.6 Pulse 85 Resp 16 B/P (MAP) 88/75 (79) Pulse Ox 97 O2 Delivery Room Air O2 Flow Rate 0.00 FiO2 21 Capillary Refill : Less Than 3 Seconds General Appearance: no apparent distress, thin, other (chronically ill appearing) HEENT: PERRL/EOMI, other (poor dentiition) Neck: non-tender, supple Respiratory: chest non-tender, no respiratory distress, no accessory muscle use Cardiovascular: regular rate, rhythm, no JVD Gastrointestinal: non tender, soft Rectal: deferred (at this time) Back: normal inspection, no CVA tenderness Extremities: non-tender, normal inspection Neurologic/Psychiatric: alert; No oriented x 3 Skin: normal color, warm/dry Lymphatic: no adenopathy Data Review Labs Laboratory Tests 05/08/23 09:57: White Blood Count 16.6H, Red Blood Count 3.76L, Hemoglobin 13.5, Hematocrit 36L, Mean Corpuscular Volume 97, Mean Corpuscular Hemoglobin 36H, Mean Corpuscular Hemoglobin Concent 37H, Red Cell Distribution Width 13.7, Platelet Count 272, Mean Platelet Volume 10.2, Immature Granulocyte % (Auto) 1, Neutrophils (%) (Auto) 89H, Lymphocytes (%) (Auto) 5L, Monocytes (%) (Auto) 6, Eosinophils (%) (Auto) 0, Basophils (%) (Auto) 0, Neutrophils # (Auto) 14.7H, Lymphocytes # (Auto) 0.8L, Monocytes # (Auto) 0.9, Eosinophils # (Auto) 0.1, Basophils # (Auto) 0.0, Immature Granulocyte # (Auto) 0.2H, Neutrophils % (Manual) 79, Lymphocytes % (Manual) 6, Monocytes % (Manual) 5, Eosinophils % (Manual) 0, Basophils % (Manual) 0, Band Neutrophils 10, Nucleated Red Blood Cells 2, Platelet Estimate NORMAL, Hypochromasia SLIGHT, Macrocytosis SLIGHT, Prothrombin Time 17.2H, INR Comment 1.4, Activated Partial Thromboplast Time 32, Sodium Level 127L, Potassium Level 3.6, Chloride Level 78L, Carbon Dioxide Level 28, Anion Gap 21H, Blood Urea Nitrogen 68H, Creatinine 2.44H, Estimat Glomerular Filtration Rate 28, BUN/Creatinine Ratio 28, Glucose Level 220H, Lactic Acid Level 5.09*H, Calcium Level 11.5H, Corrected Calcium 11.7H, Magnesium Level 2.1, Total Bilirubin 3.6H, Aspartate Amino Transf (AST/SGOT) 28, Alanine Aminotransferase (ALT/SGPT) 36, Alkaline Phosphatase 126, Troponin I < 0.30, Pro-B-Type Natriuretic Peptide 1452.0H, Total Protein 6.9, Albumin 3.7, Lipase 19, Serum Alcohol < 10 05/08/23 10:45: Ammonia 31 05/08/23 12:25: Lactic Acid Level 2.27*H, Urine Color ORANGE, Urine Clarity SL CLOUDY, Urine pH 5.5, Urine Specific [place] 1.020, Urine Protein TRACEH, Urine Glucose (UA) NEGATIVE, Urine Ketones TRACEH, Urine Nitrite POSITIVEH, Urine Bilirubin 2+H, Urine Urobilinogen 4.0, Urine Leukocyte Esterase NEGATIVE, Urine RBC (Auto) 2+H, Urine RBC 10-25H, Urine WBC 2-5, Urine Squamous Epithelial Cells NONE, Urine Crystals NONE, Urine Bacteria FEWH, Urine Casts PRESENT, Urine Hyaline Casts >50H, Urine Mucus MODERATEH, Urine Culture Indicated YES, Urine Opiates Screen NEGATIVE, Urine Oxycodone Screen NEGATIVE, Urine Methadone Screen NEGATIVE, Urine Propoxyphene Screen NEGATIVE, Urine Barbiturates Screen NEGATIVE, Ur Tricyclic Antidepressants Screen NEGATIVE, Urine Phencyclidine Screen NEGATIVE, Urine Amphetamines Screen NEGATIVE, Urine Methamphetamines Screen NEGATIVE, Urine Benzodiazepines Screen POSITIVEH, Urine Cocaine Screen NEGATIVE, Urine Cannabinoids Screen NEGATIVE 05/08/23 14:55: Hemoglobin 11.0L, Hematocrit 30L, Lactic Acid Level 1.85 05/08/23 18:01: Glucometer 134H 05/08/23 21:39: White Blood Count 7.8, Red Blood Count 2.63L, Hemoglobin 9.5L, Hematocrit 26L, Mean Corpuscular Volume 98, Mean Corpuscular Hemoglobin 36H, Mean Corpuscular Hemoglobin Concent 37H, Red Cell Distribution Width 13.5, Platelet Count 124L, Mean Platelet Volume 10.3, Percent Immature Platelet Fraction 3.3 Assessment/Plan Assessment/Plan Assessment/Plan Anemia likely from GI bleed. Esophagitis Cholelithiasis Hx alcohol use - family reports heavy quit about 1 month ago possibly Weight loss. Patient with gi bleed and needs further workup with EGD colonoscopy This also will look for cause of weight loss. Patient with gallstones, but not tender on exam so more likely incidental finding IV fluids Clear liquids. Follow hgb transfuse if needed Prep tomorrow. Schedule for colonoscopy/egd for Saturday [facility] Clinical Quality Measures DVT/VTE Risk/Contraindication: Contraindications-Pharm: Other *list below* Other: RAINE Aguirre DO May 08, 2023 22:11
[2023-05-09] MEDS: inSUlin ASPART (NovoLOG) 1 UNIT/0.01 ML (CHARGE PER UNIT) SC SCH ×5 (00:16→23:35)
[2023-05-09] MEDS: NS IV 1000 ML 1,000 ML IV SCH ×3 (03:54→12:16)
[2023-05-09 05:07] LABS: MEAN CORPUSCULAR VOLUME 99 fL (80-99); MEAN PLATELET VOLUME 10.2 fL (9.0-12.2)
[2023-05-09 05:09] LABS: BASOPHILS % (AUTO) 0 % (0-10); EOSINOPHILS % (AUTO) 0 % (0-10); HEMATOCRIT 26 % (40-54); HEMOGLOBIN 9.5 g/dL (13.3-17.7); LYMPHOCYTES # (AUTO) 0.9 10^3/uL (1.0-4.0); LYMPHOCYTES % (AUTO) 9 % (12-44); MEAN CORPUSCULAR HEMOGLOBIN 36 pg (25-34); MEAN CORPUSCULAR HGB CONC 36 g/dL (32-36); MONOCYTES # (AUTO) 0.6 10^3/uL (0.0-1.0); MONOCYTES % (AUTO) 6 % (0-12); NEUTROPHILS # (AUTO) 8.5 10^3/uL (1.8-7.8); NEUTROPHILS % (AUTO) 84 % (42-75); PLATELET COUNT 141 10^3/uL (130-400); WHITE BLOOD COUNT 10.1 10^3/uL (4.3-11.0)
[2023-05-09 05:10] LABS: ALBUMIN 2.6 GM/DL (3.2-4.5); POTASSIUM 3.5 MMOL/L (3.6-5.0)
[2023-05-09 05:12] LABS: TOTAL PROTEIN 4.7 GM/DL (6.4-8.2)
[2023-05-09 05:14] LABS: BILIRUBIN,TOTAL 2.3 MG/DL (0.1-1.0)
[2023-05-09 05:15] LABS: PHOSPHORUS 1.3 MG/DL (2.3-4.7)
[2023-05-09 05:16] LABS: CREATININE SERUM 1.16 MG/DL (0.60-1.30)
[2023-05-09 05:19] LABS: MAGNESIUM 2.2 MG/DL (1.6-2.4)
[2023-05-09] MEDS: MAGNESIUM 1 GM/100 ML IVPB 100 ML IV SCH (06:00)
[2023-05-09] MEDS: POTASSIUM CL 10MEQ/50ML IVPB 50 ML IV SCH (06:00)
[2023-05-09] MEDS: KCL 20 MEQ TAB (K-DUR) PO SCH (06:00)
--- NOTE | 2023-05-09 06:11 | Progress Note - Hospitalist ---
Subjective HPI/CC On Admission Date Seen by Provider: May 09, 2023 Time Seen by Provider: 11:00 Chief complaint: GI bleed HPI: This is a 68-year-old male former alcoholic who presented to the ER with bloody stools. Patient not cooperating. Dr. Lancaster will be consulted. Alcohol withdrawal protocol maintain Banana bag once a day to prevent Korsakoff psychosis and Warnicke's encephalopathy. Subjective/Events-last exam Patient very angry and irritable Alcohol withdrawal protocol maintained Son and daughter at the bedside Scopes to be performed Review of Systems General: Fatigue, Malaise Focused Exam Lactate Level 05/08/23 09:57: Lactic Acid Level 5.09*H 05/08/23 12:25: Lactic Acid Level 2.27*H 05/08/23 14:55: Lactic Acid Level 1.85 Objective Exam Vital Signs Vital Signs Date Time Temp Pulse Resp B/P (MAP) Pulse Ox O2 Delivery O2 Flow Rate FiO2 05/10/23 04:34 95 Room Air 05/10/23 04:30 36.3 56 10 86/54 (67) 05/08/23 19:35 0.00 21 Capillary Refill : Less Than 3 Seconds General Appearance: No Apparent Distress, WD/WN, Chronically ill Respiratory: Lungs Clear, Normal Breath Sounds Cardiovascular: Regular Rate, Rhythm Neurologic/Psychiatric: Alert, Oriented x3 Results/Procedures Lab Laboratory Tests 05/10/23 04:15 Patient resulted labs reviewed. Assessment/Plan Assessment and Plan Assess & Plan/Chief Complaint Assessment: GI bleed Alcoholism High risk for alcohol withdrawal Plan: Banana bag ICU CIWA protocol Dr. Lancaster PPI Clinical Quality Measures DVT/VTE Risk/Contraindication: Contraindications-Pharm: Other *list below* Other: KOLE Haskins DO May 09, 2023 06:11
[2023-05-09] MEDS ORDERED: KCL 20 MEQ TAB (K-DUR) PO ONE (08:00)
[2023-05-09] MEDS: PANTOPRAZOLE 40 MG (PROTONIX) VIAL IV SCH ×2 (08:27→21:06)
[2023-05-09] MEDS: DOCUSATE SODIUM 100 MG (COLACE) CAP PO SCH ×2 (08:27→21:37)
--- NOTE | 2023-05-09 09:42 | Progress Note - Surgery ---
Subjective Date Seen by a Provider: May 09, 2023 Time Seen by a Provider: 09:42 Subjective/Events-last exam Laying in bed. Patient hgb stable. No bloody stools. Still with confusion. No new complaints. Focused Exam Lactate Level 05/08/23 09:57: Lactic Acid Level 5.09*H 05/08/23 12:25: Lactic Acid Level 2.27*H 05/08/23 14:55: Lactic Acid Level 1.85 Objective Exam Vital Signs Date Time Temp Pulse Resp B/P (MAP) Pulse Ox O2 Delivery O2 Flow Rate FiO2 05/09/23 09:00 76 115/73 (87) 98 Room Air 05/09/23 08:00 60 99/43 (61) 98 Room Air 05/09/23 07:44 36.3 05/09/23 07:36 68 05/09/23 07:00 63 88/40 (56) 95 Room Air 05/09/23 06:00 59 12 109/66 (80) 97 Room Air 05/09/23 05:00 60 13 92/59 (70) 98 Room Air 05/09/23 04:00 97 Room Air 05/09/23 04:00 35.7 74 21 103/68 (80) 98 Room Air 05/09/23 03:00 75 12 103/60 (74) 99 Room Air 05/09/23 02:00 65 12 102/48 (66) 99 Room Air 05/09/23 01:00 63 05/09/23 01:00 65 14 99/60 (73) 97 Room Air 05/09/23 00:00 36.1 70 13 101/78 (86) 98 Room Air 05/08/23 23:59 98 Room Air 05/08/23 23:00 77 16 88/54 (65) 99 Room Air 05/08/23 22:09 73 86/50 05/08/23 22:00 66 15 100/63 (75) 99 Room Air 05/08/23 21:00 63 17 90/54 (66) 98 Room Air 05/08/23 20:00 98 Room Air 05/08/23 20:00 63 92/45 (61) 98 Room Air 05/08/23 19:39 36.9 73 16 82/59 (67) 100 Room Air 05/08/23 19:35 98 Room Air 0.00 21 05/08/23 19:00 85 05/08/23 19:00 96 17 91/57 (68) 95 Room Air 05/08/23 18:00 84 14 102/70 (81) 99 Room Air 05/08/23 17:00 80 9 95/64 (74) 98 Room Air 05/08/23 16:00 96 Room Air 05/08/23 16:00 84 22 86/47 (60) 100 Room Air 05/08/23 15:54 36.5 Room Air 05/08/23 15:47 35.6 82 98 05/08/23 15:15 82 20 107/54 (71) 98 Room Air 05/08/23 15:00 85 14 109/73 (85) 96 Room Air 05/08/23 14:45 82 15 106/66 (79) 98 Room Air 05/08/23 14:37 80 05/08/23 14:30 82 9 101/70 (80) 99 Room Air 05/08/23 14:15 85 8 99/70 (80) 100 Room Air 05/08/23 14:00 94 Room Air 05/08/23 14:00 90 14 100/65 (77) 98 Room Air 05/08/23 13:45 85 112/68 (83) Room Air 05/08/23 12:55 35.6 88 16 110/66 96 Room Air I & O 05/09/23 07:00 Intake Total 3350 ml Output Total 1050 ml Balance 2300 ml Capillary Refill : Less Than 3 Seconds General Appearance: No Apparent Distress, Anxious, Chronically ill, Thin HEENT: PERRL/EOMI, Normal ENT Inspection; No Moist Mucous Membranes (dry mucous membranes with thick white mucous) Neck: Full Range of Motion, Supple Respiratory: Chest Non Tender, No Accessory Muscle Use, No Respiratory Distress Cardiovascular: Regular Rate, Rhythm, No JVD Gastrointestinal: non tender, soft Extremity: Normal Capillary Refill, Normal Inspection, No Pedal Edema Neurologic/Psychiatric: Alert, Depressed Affect, Disoriented Skin: Warm/Dry, Ecchymosis, Pallor Lymphatic: No Adenopathy Results Lab Laboratory Tests 05/08/23 09:57: White Blood Count 16.6H, Red Blood Count 3.76L, Hemoglobin 13.5, Hematocrit 36L, Mean Corpuscular Volume 97, Mean Corpuscular Hemoglobin 36H, Mean Corpuscular Hemoglobin Concent 37H, Red Cell Distribution Width 13.7, Platelet Count 272, Mean Platelet Volume 10.2, Immature Granulocyte % (Auto) 1, Neutrophils (%) (Auto) 89H, Lymphocytes (%) (Auto) 5L, Monocytes (%) (Auto) 6, Eosinophils (%) (Auto) 0, Basophils (%) (Auto) 0, Neutrophils # (Auto) 14.7H, Lymphocytes # (Auto) 0.8L, Monocytes # (Auto) 0.9, Eosinophils # (Auto) 0.1, Basophils # (Auto) 0.0, Immature Granulocyte # (Auto) 0.2H, Neutrophils % (Manual) 79, Lymphocytes % (Manual) 6, Monocytes % (Manual) 5, Eosinophils % (Manual) 0, Basophils % (Manual) 0, Band Neutrophils 10, Nucleated Red Blood Cells 2, Platelet Estimate NORMAL, Hypochromasia SLIGHT, Macrocytosis SLIGHT, Prothrombin Time 17.2H, INR Comment 1.4, Activated Partial Thromboplast Time 32, Sodium Level 127L, Potassium Level 3.6, Chloride Level 78L, Carbon Dioxide Level 28, Anion Gap 21H, Blood Urea Nitrogen 68H, Creatinine 2.44H, Estimat Glomerular Filtration Rate 28, BUN/Creatinine Ratio 28, Glucose Level 220H, Lactic Acid Level 5.09*H, Calcium Level 11.5H, Corrected Calcium 11.7H, Magnesium Level 2.1, Total Bilirubin 3.6H, Aspartate Amino Transf (AST/SGOT) 28, Alanine Aminotransferase (ALT/SGPT) 36, Alkaline Phosphatase 126, Troponin I < 0.30, Pro-B-Type Natriuretic Peptide 1452.0H, Total Protein 6.9, Albumin 3.7, Lipase 19, Serum Alcohol < 10 05/08/23 10:45: Ammonia 31 05/08/23 12:25: Lactic Acid Level 2.27*H, Urine Color ORANGE, Urine Clarity SL CLOUDY, Urine pH 5.5, Urine Specific Rumsey 1.020, Urine Protein TRACEH, Urine Glucose (UA) NEGATIVE, Urine Ketones TRACEH, Urine Nitrite POSITIVEH, Urine Bilirubin 2+H, Urine Urobilinogen 4.0, Urine Leukocyte Esterase NEGATIVE, Urine RBC (Auto) 2+H, Urine RBC 10-25H, Urine WBC 2-5, Urine Squamous Epithelial Cells NONE, Urine Crystals NONE, Urine Bacteria FEWH, Urine Casts PRESENT, Urine Hyaline Casts >50H, Urine Mucus MODERATEH, Urine Culture Indicated YES, Urine Opiates Screen NEGATIVE, Urine Oxycodone Screen NEGATIVE, Urine Methadone Screen NEGATIVE, Urine Propoxyphene Screen NEGATIVE, Urine Barbiturates Screen NEGATIVE, Ur Tricyclic Antidepressants Screen NEGATIVE, Urine Phencyclidine Screen NEGATIVE, Urine Amphetamines Screen NEGATIVE, Urine Methamphetamines Screen NEGATIVE, Urine Benzodiazepines Screen POSITIVEH, Urine Cocaine Screen NEGATIVE, Urine Cannabinoids Screen NEGATIVE 05/08/23 14:55: Hemoglobin 11.0L, Hematocrit 30L, Lactic Acid Level 1.85 05/08/23 18:01: Glucometer 134H 05/08/23 21:39: White Blood Count 7.8, Red Blood Count 2.63L, Hemoglobin 9.5L, Hematocrit 26L, Mean Corpuscular Volume 98, Mean Corpuscular Hemoglobin 36H, Mean Corpuscular Hemoglobin Concent 37H, Red Cell Distribution Width 13.5, Platelet Count 124L, Mean Platelet Volume 10.3, Percent Immature Platelet Fraction 3.3 05/09/23 00:11: Glucometer 93 05/09/23 04:40: White Blood Count 10.1, Red Blood Count 2.64L, Hemoglobin 9.5L, Hematocrit 26L, Mean Corpuscular Volume 99, Mean Corpuscular Hemoglobin 36H, Mean Corpuscular Hemoglobin Concent 36, Red Cell Distribution Width 13.5, Platelet Count 141, Mean Platelet Volume 10.2, Percent Immature Platelet Fraction 3.1, Immature Granulocyte % (Auto) 1, Neutrophils (%) (Auto) 84H, Lymphocytes (%) (Auto) 9L, Monocytes (%) (Auto) 6, Eosinophils (%) (Auto) 0, Basophils (%) (Auto) 0, Neutrophils # (Auto) 8.5H, Lymphocytes # (Auto) 0.9L, Monocytes # (Auto) 0.6, Eosinophils # (Auto) 0.0, Basophils # (Auto) 0.0, Immature Granulocyte # (Auto) 0.1, Sodium Level 132L, Potassium Level 3.5L, Chloride Level 98, Carbon Dioxide Level 25, Anion Gap 9, Blood Urea Nitrogen 42H, Creatinine 1.16, Estimat Glomerular Filtration Rate 68, BUN/Creatinine Ratio 36, Glucose Level 95, Calcium Level 8.0L, Corrected Calcium 9.1, Phosphorus Level 1.3L, Magnesium Level 2.2, Total Bilirubin 2.3H, Aspartate Amino Transf (AST/SGOT) 21, Alanine Aminotransferase (ALT/SGPT) 25, Alkaline Phosphatase 74, Total Protein 4.7L, A lbumin 2.6L 05/09/23 05:40: Glucometer 93 Assessment/Plan Assessment/Plan Assessment/Plan Anemia likely from GI bleed. Esophagitis Cholelithiasis Hx alcohol use - family reports heavy quit about 1 month ago possibly Weight loss. Patient with gi bleed and needs further workup with EGD colonoscopy This also will look for cause of weight loss. Patient with gallstones, but not tender on exam so more likely incidental finding IV fluids Clear liquids. NPO after midnight Follow hgb transfuse if needed Prep today Schedule for colonoscopy/egd for Saturday [facility] Clinical Quality Measures DVT/VTE Risk/Contraindication: Contraindications-Pharm: Other *list below* Other: RAINE Aguirre DO May 09, 2023 09:42
--- NOTE | 2023-05-09 10:10 | Tele-ICU Progress Note ---
Subjective Date Seen by a Provider: May 09, 2023 Time Seen by a Provider: 10:02 Subjective/Events-last exam (Tele-ICU Physician , Progress Note ) Service provided via interactive audio and video telecommunications E-CARE system to a patient admitted to ICU bed in [facility]. Patient is seen today due to persistent need of ICU care Available chart/ vitals / labs / Images reviewed Video assessment done using teleICU camera, rest of exam as per RN 68 yo M admitted yesterday with hypotension responded to IVF, latest BP 115/73- on IV levophed @ 0.6, LISA Cr has gone down from 2.44 to 1.1, LA also down 5.09, ow 1.86 AG closed, Was vomiting last few weeks, also diarrhea, stool + for OBS, to get EGD, colonoscopy tomorrow Sepsis Event Evaluation Height, Weight, BMI Height: 5'7.00" Weight: 192lbs. oz. 87.678371dd; 21.34 BMI Method:Stated Focused Exam Lactate Level 05/08/23 09:57: Lactic Acid Level 5.09*H 05/08/23 12:25: Lactic Acid Level 2.27*H 05/08/23 14:55: Lactic Acid Level 1.85 Exam Exam Patient acknowledged, consented, and participated in this virtual visit which was conducted using real time audio/video Vital Signs Date Time Temp Pulse Resp B/P (MAP) Pulse Ox O2 Delivery O2 Flow Rate FiO2 05/09/23 09:00 76 115/73 (87) 98 Room Air 05/09/23 08:00 60 99/43 (61) 98 Room Air 05/09/23 07:44 36.3 05/09/23 07:36 68 05/09/23 07:00 63 88/40 (56) 95 Room Air 05/09/23 06:00 59 12 109/66 (80) 97 Room Air 05/09/23 05:00 60 13 92/59 (70) 98 Room Air 05/09/23 04:00 97 Room Air 05/09/23 04:00 35.7 74 21 103/68 (80) 98 Room Air 05/09/23 03:00 75 12 103/60 (74) 99 Room Air 05/09/23 02:00 65 12 102/48 (66) 99 Room Air 05/09/23 01:00 63 6/29/23 01:00 65 14 99/60 (73) 97 Room Air 05/09/23 00:00 36.1 70 13 101/78 (86) 98 Room Air 05/08/23 23:59 98 Room Air 05/08/23 23:00 77 16 88/54 (65) 99 Room Air 05/08/23 22:09 73 86/50 05/08/23 22:00 66 15 100/63 (75) 99 Room Air 05/08/23 21:00 63 17 90/54 (66) 98 Room Air 05/08/23 20:00 98 Room Air 05/08/23 20:00 63 92/45 (61) 98 Room Air 05/08/23 19:39 36.9 73 16 82/59 (67) 100 Room Air 05/08/23 19:35 98 Room Air 0.00 21 05/08/23 19:00 85 05/08/23 19:00 96 17 91/57 (68) 95 Room Air 05/08/23 18:00 84 14 102/70 (81) 99 Room Air 05/08/23 17:00 80 9 95/64 (74) 98 Room Air 05/08/23 16:00 96 Room Air 05/08/23 16:00 84 22 86/47 (60) 100 Room Air 05/08/23 15:54 36.5 Room Air 05/08/23 15:47 35.6 82 98 05/08/23 15:15 82 20 107/54 (71) 98 Room Air 05/08/23 15:00 85 14 109/73 (85) 96 Room Air 05/08/23 14:45 82 15 106/66 (79) 98 Room Air 05/08/23 14:37 80 05/08/23 14:30 82 9 101/70 (80) 99 Room Air 05/08/23 14:15 85 8 99/70 (80) 100 Room Air 05/08/23 14:00 94 Room Air 05/08/23 14:00 90 14 100/65 (77) 98 Room Air 05/08/23 13:45 85 112/68 (83) Room Air 05/08/23 12:55 35.6 88 16 110/66 96 Room Air I & O 05/09/23 07:00 Intake Total 3350 ml Output Total 1050 ml Balance 2300 ml Height & Weight Height: 5'7.00" Weight: 192lbs. oz. 87.101294ba; 21.34 BMI Method:Stated General Appearance: Anxious, Chronically ill, Mild Distress, Thin HEENT: PERRL/EOMI; No Moist Mucous Membranes (dry mucous membranes with thick white mucous) Neck: Full Range of Motion, Normal Inspection, Non Tender, Supple Respiratory: Chest Non Tender, Lungs Clear, Normal Breath Sounds, No Accessory Muscle Use, No Respiratory Distress Cardiovascular: Regular Rate, Rhythm, No Edema, No Gallop, No JVD, No Murmur, Normal Peripheral Pulses Capillary Refill: Less Than 3 Seconds Gastrointestinal: normal bowel sounds, non tender, soft, other Extremity: Normal Capillary Refill, Normal Inspection, No Pedal Edema Neurologic/Psychiatric: Alert, Depressed Affect, Disoriented, Other (oriented to name, date, not place) Skin: Warm/Dry, Ecchymosis (various bruises in multiple areas in various stages of healing), Pallor Results Lab Laboratory Tests 05/08/23 09:57 05/08/23 14:55 05/08/23 21:39 05/09/23 04:40 Assessment/Plan Assessment/Plan Dehydration, hypotension, doing better but still on IV levophed, due to OBS +, to have EGD and colonscopy in am, Hb has gone from 13 on admission to 9.5 today though no obvious bleeding Critical Care: Critically Ill Patient Time spent with patient (mins): 25 TIRSO TERRY MD May 09, 2023 10:10
[2023-05-09] MEDS ORDERED: LISI1TAB48 PO (10:12)
[2023-05-09] MEDS ORDERED: DIAZ10TA3 PO (10:12)
[2023-05-09] MEDS ORDERED: GOLYTELY POWDER 4000 ML BTL PO ONE (10:30)
[2023-05-09] MEDS: THIAMINE INJECTION 100 MG, FOLIC ACID INJECTION 1 MG, VITAMIN MULTI INJECTION 10 ML, MA... IV SCH ×5 (11:03)
[2023-05-09] MEDS: cefTRIAXone IV/IM 1,000 MG in NS (IVPB) 50 ML IV SCH (12:25)
--- NOTE | 2023-05-09 14:15 | Diagnostic Imaging Report ---
HISTORY: PICC line placement COMPARISON: None TECHNIQUE: Frontal view of the chest. FINDINGS: Lung volumes are normal. No consolidation is seen. There is no pleural effusion or pneumothorax. The right PICC line projects over the mid SVC. IMPRESSION: 1. The right PICC line projects over the mid SVC. 2. No acute pulmonary abnormality. Dictated by: Dictated on workstation # [id number]
[2023-05-09] MEDS: NOREPINEPHRINE 8 MG/250 ML 250 ML IV SCH (18:00)
[2023-05-10] MEDS: NS IV 1000 ML 1,000 ML IV SCH ×4 (03:16→17:31)
[2023-05-10 04:38] LABS: MEAN CORPUSCULAR HGB CONC 36 g/dL (32-36); PLATELET COUNT 128 10^3/uL (130-400)
[2023-05-10 04:40] LABS: BASOPHILS % (AUTO) 0 % (0-10); EOSINOPHILS # (AUTO) 0.1 10^3/uL (0.0-0.3); EOSINOPHILS % (AUTO) 1 % (0-10); HEMATOCRIT 22 % (40-54); LYMPHOCYTES % (AUTO) 12 % (12-44); MEAN CORPUSCULAR HEMOGLOBIN 36 pg (25-34); MEAN CORPUSCULAR VOLUME 100 fL (80-99); MEAN PLATELET VOLUME 10.5 fL (9.0-12.2); MONOCYTES # (AUTO) 0.4 10^3/uL (0.0-1.0); MONOCYTES % (AUTO) 4 % (0-12); NEUTROPHILS # (AUTO) 6.6 10^3/uL (1.8-7.8); NEUTROPHILS % (AUTO) 82 % (42-75); WHITE BLOOD COUNT 8.1 10^3/uL (4.3-11.0)
[2023-05-10 05:03] LABS: ALBUMIN 2.1 GM/DL (3.2-4.5)
[2023-05-10 05:04] LABS: CHLORIDE 107 MMOL/L (98-107); POTASSIUM 2.9 MMOL/L (3.6-5.0); SODIUM 139 MMOL/L (135-145)
[2023-05-10 05:05] LABS: CALCIUM 6.4 MG/DL (8.5-10.1)
[2023-05-10 05:06] LABS: GLUCOSE 87 MG/DL (70-105); TOTAL PROTEIN 4.1 GM/DL (6.4-8.2)
[2023-05-10 05:07] LABS: CARBON DIOXIDE 23 MMOL/L (21-32)
[2023-05-10 05:08] LABS: BILIRUBIN,TOTAL 1.4 MG/DL (0.1-1.0)
[2023-05-10 05:09] LABS: ALKALINE PHOSPHATASE 74 U/L (40-136)
[2023-05-10 05:10] LABS: CREATININE SERUM 0.63 MG/DL (0.60-1.30); GFR ESTIMATED 102
[2023-05-10 05:11] LABS: BUN/CREATININE RATIO 19
[2023-05-10 05:12] LABS: MAGNESIUM 1.9 MG/DL (1.6-2.4)
[2023-05-10 05:13] LABS: ALANINE AMINOTRANSFERASE 20 U/L (0-55); PHOSPHORUS < 0.7 MG/DL (2.3-4.7)
[2023-05-10] MEDS: MAGNESIUM 1 GM/100 ML IVPB 100 ML IV SCH ×3 (05:48→07:00)
[2023-05-10] MEDS: POTASSIUM CL 10MEQ/50ML IVPB 50 ML IV SCH ×7 (05:53→12:32)
[2023-05-10] MEDS: KCL 20 MEQ TAB (K-DUR) PO SCH (06:09)
[2023-05-10] MEDS: inSUlin ASPART (NovoLOG) 1 UNIT/0.01 ML (CHARGE PER UNIT) SC SCH ×3 (06:10→18:23)
[2023-05-10] MEDS: DOCUSATE SODIUM 100 MG (COLACE) CAP PO SCH ×2 (07:59→21:19)
[2023-05-10] MEDS: THIAMINE INJECTION 100 MG, FOLIC ACID INJECTION 1 MG, VITAMIN MULTI INJECTION 10 ML, MA... IV SCH ×5 (08:49)
[2023-05-10] MEDS: PANTOPRAZOLE 40 MG (PROTONIX) VIAL IV SCH ×2 (08:53→21:19)
--- NOTE | 2023-05-10 10:43 | Progress Note - Hospitalist ---
Subjective HPI/CC On Admission Date Seen by Provider: May 10, 2023 Time Seen by Provider: 11:00 Chief complaint: GI bleed HPI: This is a 68-year-old male former alcoholic who presented to the ER with bloody stools. Patient not cooperating. Dr. Lancaster will be consulted. Alcohol withdrawal protocol maintain Banana bag once a day to prevent Korsakoff psychosis and Warnicke's encephalopathy. Subjective/Events-last exam Patient confused Low blood pressure requiring pressor therapy Scope was will be performed Focused Exam Lactate Level 05/08/23 09:57: Lactic Acid Level 5.09*H 05/08/23 12:25: Lactic Acid Level 2.27*H 05/08/23 14:55: Lactic Acid Level 1.85 Objective Exam Vital Signs Vital Signs Date Time Temp Pulse Resp B/P (MAP) Pulse Ox O2 Delivery O2 Flow Rate FiO2 05/11/23 04:00 95 Room Air 05/11/23 04:00 75 113/66 (82) 05/11/23 04:00 36.2 05/10/23 21:00 18 05/08/23 19:35 0.00 21 Capillary Refill : Less Than 3 Seconds General Appearance: No Apparent Distress, WD/WN, Chronically ill, Thin Respiratory: Lungs Clear, Normal Breath Sounds Cardiovascular: Regular Rate, Rhythm Neurologic/Psychiatric: Alert, Disoriented Results/Procedures Lab Laboratory Tests 05/11/23 04:00 Patient resulted labs reviewed. Assessment/Plan Assessment and Plan Assess & Plan/Chief Complaint Assessment: GI bleed Alcoholism High risk for alcohol withdrawal Hypotension requiring pressor therapy Plan: Banana bag ICU [facility]ID[facility] protocol Dr. Lancaster PPI Critical Care Critically Ill Patient Clinical Quality Measures DVT/VTE Risk/Contraindication: Contraindications-Pharm: Other *list below* Other: KOLE Haskins DO May 10, 2023 10:42
[2023-05-10] MEDS: cefTRIAXone IV/IM 1,000 MG in NS (IVPB) 50 ML IV SCH (10:45)
[2023-05-10] MEDS: NOREPINEPHRINE 8 MG/250 ML 250 ML IV SCH (12:37)
--- NOTE | 2023-05-10 13:36 | Tele-ICU Progress Note ---
Subjective Date Seen by a Provider: May 10, 2023 Time Seen by a Provider: 13:36 Subjective/Events-last exam (Tele-ICU Physician , Progress Note ) Service provided via interactive audio and video telecommunications E-CARE system to a patient admitted to ICU bed in [facility]. Patient is seen today due to persistent need of ICU care Available chart/ vitals / labs / Images reviewed Video assessment done using teleICU camera, rest of exam as per RN Discussed with RN Events overnight : Afebrile hemodynamically stable Respiratory - I/O = Drips: Pressors- LEVO 0.02 Hospital course: (05/08) 68 y/o - Syncope/Fall - GI Bleed (Hemacult +) - Hypotension. CT A/P = Cholelithiasis. 05/10 - still on LEVO 0.02 ( 8L positive IVF ) , hb 8 from 13 A/P Hypotension - probably dehydration, anemia and and LISA- improving with IVF = Infection less likely , w/up pending , empitic abx given ( CTchest , abd/pelvis - no acute abnormalities Suspected GIB - esophagitis by CT , gastritis with ETON ? - PPI IV - sx consulted- colonoscopy/egd for today Anemia - Hb trending down to 8.0 ( fron 13 on admission - fololow hypokalemia/ hypophos - most likely itrogenic with hydration - replacing H/o ETOH use , last drink reportedly 1 w ago - ? 1 month ago - follow on CIWA and vitamins LISA - RESOLVED with hydration , monitor UO Confusion - TME ? 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 Discussed with RN to reach out if any questions or concerns Case and care daily discussed on multidisciplinary rounds ( RN, PharmD, Internet Marketing Analyst , Respiratory Therapy, test worker ) A total of 31 minutes of critical care time was devoted to this patient today, required to treat and/or prevent further deterioration of critical care condition ( as above ) . I am remotely monitoring this patient from another state. I am unable to do the bedside exam, and history/physical and pertinent information is taken from other notes in the computer and bedside staff. Sepsis Event Evaluation Height, Weight, BMI Height: 5'7.00" Weight: 192lbs. oz. 87.356826wo; 21.08 BMI Method:Stated Focused Exam Lactate Level 05/08/23 09:57: Lactic Acid Level 5.09*H 05/08/23 12:25: Lactic Acid Level 2.27*H 05/08/23 14:55: Lactic Acid Level 1.85 Exam Exam Patient acknowledged, consented, and participated in this virtual visit which was conducted using real time audio/video Vital Signs Date Time Temp Pulse Resp B/P (MAP) Pulse Ox O2 Delivery O2 Flow Rate FiO2 05/10/23 13:00 73 18 92/59 (70) 96 Room Air 05/10/23 12:53 70 05/10/23 12:00 67 18 95/64 (76) 97 Room Air 05/10/23 11:50 36.3 05/10/23 11:10 94 Room Air 05/10/23 11:00 70 17 96/64 (79) 97 Room Air 05/10/23 10:00 74 17 98/65 (76) 96 Room Air 05/10/23 09:00 57 15 92/52 (67) 96 Room Air 05/10/23 08:00 94 Room Air 05/10/23 08:00 63 16 95/59 (71) 96 Room Air 05/10/23 07:46 36.6 05/10/23 07:00 66 05/10/23 07:00 64 16 93/59 (69) 96 Room Air 05/10/23 06:00 63 13 100/64 (76) 95 Room Air 05/10/23 05:00 64 14 108/65 (79) 95 Room Air 05/10/23 04:34 95 Room Air 05/10/23 04:30 36.3 56 10 86/54 (67) 96 Room Air 05/10/23 04:15 64 6 91/60 (68) Room Air 05/10/23 04:00 61 14 93/57 (69) 94 Room Air 05/10/23 03:15 50 15 108/67 (89) 99 Room Air 05/10/23 03:00 90/55 (64) Room Air 05/10/23 02:45 60 13 95/57 (72) 95 Room Air 05/10/23 02:30 60 14 93/55 (66) 95 Room Air 05/10/23 02:15 110/63 (85) 05/10/23 02:00 89/52 (64) 05/10/23 01:30 58 12 99/57 (71) 96 Room Air 05/10/23 01:15 98/61 (79) 05/10/23 01:00 59 14 91/62 (71) 96 Room Air 05/10/23 01:00 60 05/10/23 00:45 61 15 97/57 (69) Room Air 05/10/23 00:30 94/60 (77) 05/10/23 00:15 36.4 107/78 (92) 97 Room Air 05/10/23 00:00 68 14 107/78 (88) 97 Room Air 05/09/23 23:51 97 Room Air 05/09/23 23:45 58 90/56 (68) Room Air 05/09/23 23:30 63 90/56 (67) Room Air 05/09/23 23:15 59 13 96/58 (75) Room Air 05/09/23 23:00 61 14 90/57 (70) 97 Room Air 05/09/23 22:45 66 17 75/57 (66) 97 Room Air 05/09/23 22:30 70 15 95/57 (75) Room Air 05/09/23 22:15 72 18 98/64 (75) Room Air 05/09/23 22:00 63 14 91/59 (69) 96 Room Air 05/09/23 21:30 63 15 89/55 (67) Room Air 05/09/23 21:22 56 21 250/232 (242) Room Air 05/09/23 21:00 63 17 109/67 (80) 97 Room Air 05/09/23 20:45 62 15 104/69 (84) Room Air 05/09/23 20:30 96 Room Air 05/09/23 20:30 70 16 110/74 (84) 05/09/23 20:15 63 15 117/69 (80) 05/09/23 20:00 64 16 105/67 (81) 05/09/23 19:58 36.5 05/09/23 19:00 70 05/09/23 18:00 69 21 115/78 (90) 97 Room Air 05/09/23 17:55 64 114/80 05/09/23 17:00 65 8 114/77 (89) 97 Room Air 05/09/23 16:00 62 17 116/72 (87) 98 Room Air 05/09/23 16:00 94 Room Air 05/09/23 15:41 36.4 05/09/23 15:00 71 17 117/69 (85) 96 Room Air 05/09/23 14:00 75 121/99 (106) 99 Room Air I & O 05/10/23 07:00 Intake Total 5015.2 ml Output Total 3450 ml Balance 1565.2 ml Height & Weight Height: 5'7.00" Weight: 192lbs. oz. 87.678358te; 21.08 BMI Method:Stated General Appearance: No Apparent Distress, WD/WN, Chronically ill HEENT: PERRL/EOMI, Normal ENT Inspection; No Moist Mucous Membranes (dry mucous membranes with thick white mucous) Neck: Full Range of Motion, Supple Respiratory: Lungs Clear, Normal Breath Sounds Cardiovascular: Regular Rate, Rhythm Capillary Refill: Less Than 3 Seconds Gastrointestinal: non tender, soft Extremity: Normal Capillary Refill, Normal Inspection, No Pedal Edema Neurologic/Psychiatric: Alert, Oriented x3 Skin: Warm/Dry, Ecchymosis, Pallor Lymphatic: No Adenopathy Results Lab Laboratory Tests 05/08/23 14:55 05/08/23 21:39 05/09/23 04:40 05/10/23 04:15 Assessment/Plan Assessment/Plan 1 ISABEL BERG MD May 10, 2023 13:36
[2023-05-10] MEDS ORDERED: LACTATED RINGERS 1,000 ML IV ONE (15:02)
--- NOTE | 2023-05-10 15:12 | Progress Note - Surgery ---
Subjective Date Seen by a Provider: May 10, 2023 Time Seen by a Provider: 15:11 Subjective/Events-last exam Drop in hgb. Did not drink all of prep. On pressors. Family at bedside. Planning scopes today. Focused Exam Lactate Level 05/08/23 09:57: Lactic Acid Level 5.09*H 05/08/23 12:25: Lactic Acid Level 2.27*H 05/08/23 14:55: Lactic Acid Level 1.85 Objective Exam Vital Signs Date Time Temp Pulse Resp B/P (MAP) Pulse Ox O2 Delivery O2 Flow Rate FiO2 05/10/23 14:00 69 14 87/53 (65) 95 Room Air 05/10/23 13:00 73 18 92/59 (70) 96 Room Air 05/10/23 12:53 70 05/10/23 12:00 67 18 95/64 (76) 97 Room Air 05/10/23 11:50 36.3 05/10/23 11:10 94 Room Air 05/10/23 11:00 70 17 96/64 (79) 97 Room Air 05/10/23 10:00 74 17 98/65 (76) 96 Room Air 05/10/23 09:00 57 15 92/52 (67) 96 Room Air 05/10/23 08:00 94 Room Air 05/10/23 08:00 63 16 95/59 (71) 96 Room Air 05/10/23 07:46 36.6 05/10/23 07:00 66 05/10/23 07:00 64 16 93/59 (69) 96 Room Air 05/10/23 06:00 63 13 100/64 (76) 95 Room Air 05/10/23 05:00 64 14 108/65 (79) 95 Room Air 05/10/23 04:34 95 Room Air 05/10/23 04:30 36.3 56 10 86/54 (67) 96 Room Air 05/10/23 04:15 64 6 91/60 (68) Room Air 05/10/23 04:00 61 14 93/57 (69) 94 Room Air 05/10/23 03:15 50 15 108/67 (89) 99 Room Air 05/10/23 03:00 90/55 (64) Room Air 05/10/23 02:45 60 13 95/57 (72) 95 Room Air 05/10/23 02:30 60 14 93/55 (66) 95 Room Air 05/10/23 02:15 110/63 (85) 05/10/23 02:00 89/52 (64) 05/10/23 01:30 58 12 99/57 (71) 96 Room Air 05/10/23 01:15 98/61 (79) 05/10/23 01:00 59 14 91/62 (71) 96 Room Air 05/10/23 01:00 60 05/10/23 00:45 61 15 97/57 (69) Room Air 05/10/23 00:30 94/60 (77) 05/10/23 00:15 36.4 107/78 (92) 97 Room Air 05/10/23 00:00 68 14 107/78 (88) 97 Room Air 05/09/23 23:51 97 Room Air 05/09/23 23:45 58 90/56 (68) Room Air 05/09/23 23:30 63 90/56 (67) Room Air 05/09/23 23:15 59 13 96/58 (75) Room Air 05/09/23 23:00 61 14 90/57 (70) 97 Room Air 05/09/23 22:45 66 17 75/57 (66) 97 Room Air 05/09/23 22:30 70 15 95/57 (75) Room Air 05/09/23 22:15 72 18 98/64 (75) Room Air 05/09/23 22:00 63 14 91/59 (69) 96 Room Air 05/09/23 21:30 63 15 89/55 (67) Room Air 05/09/23 21:22 56 21 250/232 (242) Room Air 05/09/23 21:00 63 17 109/67 (80) 97 Room Air 05/09/23 20:45 62 15 104/69 (84) Room Air 05/09/23 20:30 96 Room Air 05/09/23 20:30 70 16 110/74 (84) 05/09/23 20:15 63 15 117/69 (80) 05/09/23 20:00 64 16 105/67 (81) 05/09/23 19:58 36.5 05/09/23 19:00 70 05/09/23 18:00 69 21 115/78 (90) 97 Room Air 05/09/23 17:55 64 114/80 05/09/23 17:00 65 8 114/77 (89) 97 Room Air 05/09/23 16:00 62 17 116/72 (87) 98 Room Air 05/09/23 16:00 94 Room Air 05/09/23 15:41 36.4 I & O 05/10/23 07:00 Intake Total 5015.2 ml Output Total 3450 ml Balance 1565.2 ml Capillary Refill : Less Than 3 Seconds General Appearance: No Apparent Distress, WD/WN, Chronically ill HEENT: PERRL/EOMI, Normal ENT Inspection; No Moist Mucous Membranes (dry mucous membranes with thick white mucous) Neck: Full Range of Motion, Supple Respiratory: Lungs Clear, No Accessory Muscle Use, No Respiratory Distress Cardiovascular: Regular Rate, Rhythm, No JVD Gastrointestinal: non tender, soft Extremity: Normal Capillary Refill, Normal Inspection, No Pedal Edema Neurologic/Psychiatric: Alert, Oriented x3 Skin: Warm/Dry, Ecchymosis, Pallor Lymphatic: No Adenopathy Results Lab Laboratory Tests 05/09/23 17:43: Glucometer 144H 05/09/23 23:26: Glucometer 100 05/10/23 04:15: White Blood Count 8.1, Red Blood Count 2.22L, Hemoglobin 8.0L, Hematocrit 22L, Mean Corpuscular Volume 100H, Mean Corpuscular Hemoglobin 36H, Mean Corpuscular Hemoglobin Concent 36, Red Cell Distribution Width 13.8, Platelet Count 128L, Mean Platelet Volume 10.5, Immature Granulocyte % (Auto) 1, Neutrophils (%) (Auto) 82H, Lymphocytes (%) (Auto) 12, Monocytes (%) (Auto) 4, Eosinophils (%) (Auto) 1, Basophils (%) (Auto) 0, Neutrophils # (Auto) 6.6, Lymphocytes # (Auto) 1.0, Monocytes # (Auto) 0.4, Eosinophils # (Auto) 0.1, Basophils # (Auto) 0.0, Immature Granulocyte # (Auto) 0.1, Percent Immature Platelet Fraction 2.7, Sodium Level 139, Potassium Level 2.9L, Chloride Level 107, Carbon Dioxide Level 23, Anion Gap 9, Blood Urea Nitrogen 12, Creatinine 0.63, Estimat Glomerular Filtration Rate 102, BUN/Creatinine Ratio 19, Glucose Level 87, Calcium Level 6.4L, Corrected Calcium 7.9L, Phosphorus Level < 0.7*L, Magnesium Level 1.9, Tot al Bilirubin 1.4H, Aspartate Amino Transf (AST/SGOT) 21, Alanine Aminotransferase (ALT/SGPT) 20, Alkaline Phosphatase 74, Total Protein 4.1L, Albumin 2.1L 05/10/23 11:32: Glucometer 142H Microbiology 05/08/23 MRSA Screen - Final, Complete MRSA not isolated 05/08/23 Blood Culture - Preliminary, Resulted No growth Assessment/Plan Assessment/Plan Assessment/Plan Anemia likely from GI bleed. Esophagitis Cholelithiasis Hx alcohol use - family reports heavy quit about 1 month ago possibly Weight loss. Patient with gi bleed and needs further workup with EGD colonoscopy This also will look for cause of weight loss. Patient with gallstones, but not tender on exam so more likely incidental finding IV fluids NPO Follow hgb transfuse if needed Colonoscopy/egd for today [facility] Clinical Quality Measures DVT/VTE Risk/Contraindication: Contraindications-Pharm: Other *list below* Other: RAINE Aguirre DO May 10, 2023 15:12
[2023-05-10] MEDS ORDERED: PROPOFOL INJECTION 50 ML IV ONE (15:18)
--- NOTE | 2023-05-10 16:08 | Anesthesia-General Post-Op ---
MAC Patient Condition Mental Status/LOC: Same as Preop Cardiovascular: Satisfactory Nausea/Vomiting: Absent Respiratory: Satisfactory Pain: Controlled Complications: Absent Post Op Complications Complications None Follow Up Care/Instructions Patient Instructions None needed. Anesthesiology Discharge Order Discharge Order Patient is doing well, no complaints, stable vital signs, no apparent adverse anesthesia problems. No complications reported per nursing. JODIE THOMPSON CRNA May 10, 2023 16:08
[2023-05-10] MEDS ORDERED: LACTATED RINGERS 1,000 ML IV STA (17:06)
[2023-05-10] MEDS ORDERED: HURRICAINE EXT TUBE (BENZOCAINE) XX PRN (17:15)
[2023-05-10] MEDS: polyethylene glycoL Bowel Prep(MIRALAX) 238 GM PO SCH ×3 (17:31→17:36)
--- NOTE | 2023-05-10 17:41 | Physician Query-Final Dx ---
LIZA MARIE 05/10/23 1741: Final Diagnosis Give Final Diagnosis Please give Final Diagnosis The medical record reflects the following clinical evidence: Clinical Indicators: BP on Admission 88/75 remained low despite 3L fluids, Norepi needed for several days to keep BP >100 sys. Elevated Cr on admission 2.44 that decreased to 0.63, altered mentation on admission Risk Factor(s): Documentation of Acute GI Bleed and dehydration, Treatment: ER: Normal saline 3 L, Also required nor epi on the on day of admission and continued for several days Hypovolemic shock, present on admission Other explanation of clinical findings Unable to determine (no explanation for clinical findings) Please clarify and document your clinical opinion in the progress notes and discharge summary including the definitive and/or presumptive diagnosis, (suspected or probable), related to the above clinical findings. Please include clinical findings supporting your diagnosis. Liza Marie, MSN, RN Clinical Credit Administration Officer [phone] [email or web address] KOLE METZ DO 05/10/232044: Final Diagnosis Give Final Diagnosis Hypovolemic shock, present on admission LIZA MARIE May 10, 2023 17:41 KOLE METZ DO May 10, 2023 20:45
[2023-05-11] MEDS: inSUlin ASPART (NovoLOG) 1 UNIT/0.01 ML (CHARGE PER UNIT) SC SCH ×4 (00:12→18:45)
[2023-05-11] MEDS: NOREPINEPHRINE 8 MG/250 ML 250 ML IV SCH (00:38)
[2023-05-11] MEDS: NS IV 1000 ML 1,000 ML IV SCH ×3 (01:31→21:53)
[2023-05-11 04:07] LABS: BASOPHILS % (AUTO) 0 % (0-10); EOSINOPHILS # (AUTO) 0.1 10^3/uL (0.0-0.3); EOSINOPHILS % (AUTO) 1 % (0-10); HEMATOCRIT 26 % (40-54); HEMOGLOBIN 9.1 g/dL (13.3-17.7); LYMPHOCYTES # (AUTO) 1.2 10^3/uL (1.0-4.0); LYMPHOCYTES % (AUTO) 16 % (12-44); MEAN CORPUSCULAR HEMOGLOBIN 36 pg (25-34); MEAN CORPUSCULAR HGB CONC 35 g/dL (32-36); MEAN CORPUSCULAR VOLUME 101 fL (80-99); MEAN PLATELET VOLUME 10.3 fL (9.0-12.2); MONOCYTES # (AUTO) 0.4 10^3/uL (0.0-1.0); MONOCYTES % (AUTO) 5 % (0-12); NEUTROPHILS # (AUTO) 5.8 10^3/uL (1.8-7.8); NEUTROPHILS % (AUTO) 77 % (42-75); PLATELET COUNT 132 10^3/uL (130-400); WHITE BLOOD COUNT 7.6 10^3/uL (4.3-11.0)
[2023-05-11 04:25] LABS: ALBUMIN 2.4 GM/DL (3.2-4.5)
[2023-05-11 04:26] LABS: CHLORIDE 107 MMOL/L (98-107); POTASSIUM 3.6 MMOL/L (3.6-5.0); SODIUM 135 MMOL/L (135-145)
[2023-05-11 04:28] LABS: GLUCOSE 97 MG/DL (70-105); TOTAL PROTEIN 4.7 GM/DL (6.4-8.2)
[2023-05-11 04:29] LABS: CARBON DIOXIDE 21 MMOL/L (21-32)
[2023-05-11 04:30] LABS: BILIRUBIN,TOTAL 1.4 MG/DL (0.1-1.0)
[2023-05-11 04:31] LABS: ALKALINE PHOSPHATASE 81 U/L (40-136)
[2023-05-11 04:32] LABS: CREATININE SERUM 0.65 MG/DL (0.60-1.30); GFR ESTIMATED 101
[2023-05-11 04:33] LABS: BUN/CREATININE RATIO 6
[2023-05-11 04:35] LABS: ALANINE AMINOTRANSFERASE 21 U/L (0-55); MAGNESIUM 1.9 MG/DL (1.6-2.4)
[2023-05-11 04:38] LABS: PHOSPHORUS < 0.7 MG/DL (2.3-4.7)
--- NOTE | 2023-05-11 05:09 | OPERATIVE REPORT ---
DATE OF SERVICE: 05/10/2023 PREOPERATIVE DIAGNOSES: Anemia, likely from GI bleed, esophagitis, weight loss. POSTOPERATIVE DIAGNOSIS: Distal esophageal ulceration and fecal impaction. PROCEDURE: EGD with biopsy and fecal disimpaction. SURGEON: Raine Lancaster DO ANESTHESIA: Per STRUCTURAL IRONWORKER. ESTIMATED BLOOD LOSS: None. COMPLICATIONS: None. INDICATIONS: The patient is a 68-year-old male who was admitted. He is anemic, likely from GI bleed. He also had a significant weight loss and has a history of alcohol use as well. He on CAT scan had some thickening of the esophagus consistent with esophagitis. Consent was obtained for procedures. DESCRIPTION OF PROCEDURE: The patient was placed in left lateral recumbent position. A timeout was performed. Scope was inserted in the mouth, down the esophagus, into the duodenum without difficulty. There were no polyps, masses or ulcerations in the duodenum. Scope was slowly retracted back into stomach where it was further insufflated. No polyps, masses or ulcerations in the stomach. Scope was retroflexed, noting no other pathology at this time. Scope was returned to its normal position, slowly withdrawn until distal esophagus. Distal esophagus had an esophageal ulceration appearance, no active bleeding. Biopsy of this area was obtained. Scope was then slowly retracted back until completely removed noting no other pathology. Digital rectal exam was performed noting significant hard fecal burden within the rectal vault, also noting some perianal excoriation. The fecal ball was broken up and removed or disimpacted. Prep is not adequate for colonoscopy; therefore, will be delayed at this time. RECOMMENDATIONS: We will plan on doing colonoscopy possibly tomorrow if he can tolerate prep. Continue on current medications. Job ID: [id number] DocumentID: [id number] Dictated Date: 05/10/2023 18:45:58 Health And Social Care Teacher Date: 05/11/2023 05:07:00 Dictated By: RAINE LANCASTER DO
[2023-05-11] MEDS: MAGNESIUM 1 GM/100 ML IVPB 100 ML IV SCH (05:37)
[2023-05-11] MEDS: POTASSIUM CL 10MEQ/50ML IVPB 50 ML IV SCH ×4 (05:37→08:36)
[2023-05-11] MEDS: KCL 20 MEQ TAB (K-DUR) PO SCH (05:38)
[2023-05-11] MEDS ORDERED: POTASSIUM CL 10MEQ/50ML IVPB 200 ML IV ONE (05:43)
--- NOTE | 2023-05-11 06:46 | Progress Note - Hospitalist ---
Subjective HPI/CC On Admission Date Seen by Provider: May 11, 2023 Time Seen by Provider: 11:00 Chief complaint: GI bleed HPI: This is a 68-year-old male former alcoholic who presented to the ER with bloody stools. Patient not cooperating. Dr. Lancaster will be consulted. Alcohol withdrawal protocol maintain Banana bag once a day to prevent Korsakoff psychosis and Warnicke's encephalopathy. Subjective/Events-last exam Patient doing a lot better Off pressors now Had his scopes and biopsies were taken Review of Systems General: Fatigue Neurological: Confusion Focused Exam Lactate Level Objective Exam Vital Signs Vital Signs Date Time Temp Pulse Resp B/P (MAP) Pulse Ox O2 Delivery O2 Flow Rate FiO2 05/11/23 19:13 Room Air 05/11/23 19:05 70 05/11/23 18:00 91/68 (76) 92 05/11/23 11:41 36.6 05/10/23 21:00 18 05/08/23 19:35 0.00 21 Capillary Refill : Less Than 3 Seconds General Appearance: No Apparent Distress, WD/WN, Chronically ill Respiratory: Lungs Clear, Normal Breath Sounds Cardiovascular: Regular Rate, Rhythm Neurologic/Psychiatric: Alert, Disoriented, Other (Confused) Results/Procedures Lab Laboratory Tests 05/11/23 04:00 Patient resulted labs reviewed. Assessment/Plan Assessment and Plan Assess & Plan/Chief Complaint Assessment: GI bleed due to esophageal ulcer Alcoholism High risk for alcohol withdrawal Hypotension requiring pressor therapy Plan: Banana bag Moved to fourth floor CIWA protocol Dr. Lancaster PPI Critical Care Critically Ill Patient Clinical Quality Measures DVT/VTE Risk/Contraindication: Contraindications-Pharm: Other *list below* Other: KOLE Haskins DO May 11, 2023 06:46
[2023-05-11] MEDS ORDERED: SODIUM PHOSPHATE INJ 30 MM in NS (IVPB) 250 ML INJ ONE (07:00)
[2023-05-11] MEDS: DOCUSATE SODIUM 100 MG (COLACE) CAP PO SCH ×2 (08:24→21:13)
[2023-05-11] MEDS: PANTOPRAZOLE 40 MG (PROTONIX) VIAL IV SCH ×2 (08:31→21:47)
--- NOTE | 2023-05-11 10:26 | Tele-ICU Progress Note ---
Subjective Date Seen by a Provider: May 11, 2023 Time Seen by a Provider: 10:25 Subjective/Events-last exam (Tele-ICU Physician , Progress Note ) Service provided via interactive audio and video telecommunications E-CARE system to a patient admitted to ICU bed in [facility]. Patient is seen today due to persistent need of ICU care Available chart/ vitals / labs / Images reviewed Video assessment done using teleICU camera, rest of exam as per RN Discussed with RN Events overnight : Afebrile hemodynamically stable Respiratory - I/O = Drips: ns 125 Pressors- LEVO 0.02 Hospital course: (05/08) 68 y/o - Syncope/Fall - GI Bleed (Hemacult +) - Hypotension. CT A/P = Cholelithiasis. 05/10 - still on LEVO 0.02 ( 8L positive IVF ) , hb 8 from 13 , -05/10 EGD - Distal esophageal ulceration 05/11-05/10 - still on LEVO 0.02 ( 8L positive IVF ) , hb stable , colonoscopy A/P Hypotension - probably dehydration, anemia and and LISA- improving with IVF, but still on LEVO 0.02 ( = Infection less likely , w/up pending , empitic abx given ( CTchest , abd/pelvis - no acute abnormalities - IF CAN NOT WEAN OFF - WILL CHECK CORTISOL , AND MIGHT NEED ECHO - FOLLOW FOR NOW Suspected GIB - esophagitis by CT , gastritis with ETON ? -05/10 EGD - Distal esophageal ulceration- PPI -05/11 - colonoscopy Anemia - Hb trending down to 8.0 ( fron 13 on admission - - stable now , fololow hypokalemia/ hypophos - most likely itrogenic with hydration - replacing H/o ETOH use , last drink reportedly 1 w ago - ? 1 month ago - follow on CIWA and vitamins LISA - RESOLVED with hydration , monitor UO Confusion - TME ? LISA - resolved Hyponatremia 127-->139 - follow s/p multiple falls CARBON SEQUESTRATION PLANT ENGINEER - CTH and cerv spine - no abnormalities Lines R PICC 05/09 , (Central Line Necessity Reviewed) Ma: 05/08 OG: Nutrition: po Analgesia: Anxiety/ delirium VTE Prophylaxis: scd Stress Ulcer Prophylaxis: ppi bid Plans in collaboration with bedside consultants and IM MDs. Discussed with RN to reach out if any questions or concerns Case and care daily discussed on multidisciplinary rounds ( RN, PharmD, Woodworking Machine Operator , Respiratory Therapy, foot worker ) A total of 31 minutes of critical care time was devoted to this patient today, required to treat and/or prevent further deterioration of critical care condition ( as above ) . I am remotely monitoring this patient from another state. I am unable to do the bedside exam, and history/physical and pertinent information is taken from other notes in the computer and bedside staff. Sepsis Event Evaluation Height, Weight, BMI Height: 5'7.00" Weight: 192lbs. oz. 87.631396dz; 21.08 BMI Method:Stated Focused Exam Lactate Level 05/08/23 12:25: Lactic Acid Level 2.27*H 05/08/23 14:55: Lactic Acid Level 1.85 Exam Exam Patient acknowledged, consented, and participated in this virtual visit which was conducted using real time audio/video Vital Signs Date Time Temp Pulse Resp B/P (MAP) Pulse Ox O2 Delivery O2 Flow Rate FiO2 05/11/23 09:00 69 87/56 (63) 96 Room Air 05/11/23 08:00 68 104/69 (86) 95 Room Air 05/11/23 07:00 71 05/11/23 07:00 70 90/52 (69) 97 Room Air 05/11/23 06:00 67 105/68 (80) 96 Room Air 05/11/23 05:00 61 110/67 (81) 97 Room Air 05/11/23 04:00 95 Room Air 05/11/23 04:00 75 113/66 (82) 96 Room Air 05/11/23 04:00 36.2 05/11/23 03:00 64 104/65 (78) 97 Room Air 05/11/23 02:00 67 103/63 (76) 96 Room Air 05/11/23 01:00 65 105/64 (78) 98 Room Air 05/11/23 01:00 65 05/11/23 00:38 75 107/70 05/11/23 00:00 66 107/63 (78) 96 Room Air 05/11/23 00:00 36.6 05/10/23 23:59 95 Room Air 05/10/23 23:00 73 98/71 (80) 97 Room Air 05/10/23 22:00 71 105/62 (76) 97 Room Air 05/10/23 21:00 75 18 100/65 (77) 97 Room Air 05/10/23 20:11 84 13 104/71 (82) Room Air 05/10/23 20:00 84 20 92/65 (74) 95 Room Air 05/10/23 20:00 95 Room Air 05/10/23 19:39 36.4 05/10/23 19:10 93 Room Air 05/10/23 19:00 79 18 122/64 (83) 94 Room Air 05/10/23 19:00 75 05/10/23 18:00 71 16 107/70 (91) 97 Room Air 05/10/23 17:00 81 16 111/68 (90) 95 Room Air 05/10/23 16:00 74 22 88/59 (67) 97 Room Air 05/10/23 15:55 36.3 05/10/23 15:49 95 Room Air 05/10/23 15:00 71 17 98/65 (81) 97 Room Air 05/10/23 14:00 69 14 87/53 (65) 95 Room Air 05/10/23 13:00 73 18 92/59 (70) 96 Room Air 05/10/23 12:53 70 05/10/23 12:00 67 18 95/64 (76) 97 Room Air 05/10/23 11:50 36.3 05/10/23 11:10 94 Room Air 05/10/23 11:00 70 17 96/64 (79) 97 Room Air I & O 05/11/23 07:00 Intake Total 1450 ml Output Total 2850 ml Balance -1400 ml Height & Weight Height: 5'7.00" Weight: 192lbs. oz. 87.721816hs; 21.08 BMI Method:Stated General Appearance: No Apparent Distress, WD/WN, Chronically ill, Thin HEENT: PERRL/EOMI, Normal ENT Inspection; No Moist Mucous Membranes (dry mucous membranes with thick white mucous) Neck: Full Range of Motion, Supple Respiratory: Lungs Clear, Normal Breath Sounds Cardiovascular: Regular Rate, Rhythm Capillary Refill: Less Than 3 Seconds Gastrointestinal: non tender, soft Extremity: Normal Capillary Refill, Normal Inspection, No Pedal Edema Neurologic/Psychiatric: Alert, Disoriented Skin: Warm/Dry, Ecchymosis, Pallor Lymphatic: No Adenopathy Results Lab Laboratory Tests 05/10/23 04:15 05/11/23 04:00 Assessment/Plan Assessment/Plan 1 ISABEL BERG MD May 11, 2023 10:25
[2023-05-11] MEDS: cefTRIAXone IV/IM 1,000 MG in NS (IVPB) 50 ML IV SCH (13:14)
[2023-05-11] MEDS ORDERED: PROPOFOL INJECTION 50 ML IV ONE (17:03)
--- NOTE | 2023-05-11 17:41 | Anesthesia-General Post-Op ---
MAC Patient Condition Mental Status/LOC: Same as Preop Cardiovascular: Satisfactory Nausea/Vomiting: Absent Respiratory: Satisfactory Pain: Controlled Complications: Absent Post Op Complications Complications None Follow Up Care/Instructions Patient Instructions None needed. Anesthesiology Discharge Order Discharge Order Patient is doing well, no complaints, stable vital signs, no apparent adverse anesthesia problems. No complications reported per nursing. JODIE THOMPSON CRNA May 11, 2023 17:41
--- NOTE | 2023-05-11 19:27 | Progress Note - Surgery ---
Subjective Date Seen by a Provider: May 11, 2023 Time Seen by a Provider: 11:55 Subjective/Events-last exam Tolerated prep and having liquid stools. No blood in reported in stool. Family at bedside. No new complaints. Denies n/v fever sweats chills shortness of breath or chest pain. NPO Objective Exam Vital Signs Date Time Temp Pulse Resp B/P (MAP) Pulse Ox O2 Delivery O2 Flow Rate FiO2 05/11/23 19:13 Room Air 05/11/23 19:05 70 05/11/23 18:00 67 91/68 (76) 92 Room Air 05/11/23 17:00 75 99/68 (83) 97 Room Air 05/11/23 16:00 80 107/70 (86) 98 Room Air 05/11/23 16:00 95 Room Air 05/11/23 15:33 98 Room Air 05/11/23 15:00 80 103/72 (83) 98 Room Air 05/11/23 14:00 78 100/66 (80) 97 Room Air 05/11/23 13:00 74 05/11/23 13:00 78 115/75 (98) 97 Room Air 05/11/23 12:00 75 116/71 (89) 97 Room Air 05/11/23 12:00 95 Room Air 05/11/23 11:41 36.6 05/11/23 11:00 76 112/62 (82) 96 Room Air 05/11/23 10:00 73 106/66 (82) 93 Room Air 05/11/23 09:00 69 87/56 (63) 96 Room Air 05/11/23 08:00 68 104/69 (86) 95 Room Air 05/11/23 08:00 95 Room Air 05/11/23 07:00 71 05/11/23 07:00 70 90/52 (69) 97 Room Air 05/11/23 06:00 67 105/68 (80) 96 Room Air 05/11/23 05:00 61 110/67 (81) 97 Room Air 05/11/23 04:00 95 Room Air 05/11/23 04:00 75 113/66 (82) 96 Room Air 05/11/23 04:00 36.2 05/11/23 03:00 64 104/65 (78) 97 Room Air 05/11/23 02:00 67 103/63 (76) 96 Room Air 05/11/23 01:00 65 105/64 (78) 98 Room Air 05/11/23 01:00 65 05/11/23 00:38 75 107/70 05/11/23 00:00 66 107/63 (78) 96 Room Air 05/11/23 00:00 36.6 05/10/23 23:59 95 Room Air 05/10/23 23:00 73 98/71 (80) 97 Room Air 05/10/23 22:00 71 105/62 (76) 97 Room Air 05/10/23 21:00 75 18 100/65 (77) 97 Room Air 05/10/23 20:11 84 13 104/71 (82) Room Air 05/10/23 20:00 84 20 92/65 (74) 95 Room Air 05/10/23 20:00 95 Room Air 05/10/23 19:39 36.4 I & O 05/11/23 07:00 Intake Total 1450 ml Output Total 2850 ml Balance -1400 ml Capillary Refill : Less Than 3 Seconds General Appearance: No Apparent Distress, WD/WN, Chronically ill, Thin HEENT: PERRL/EOMI, Normal ENT Inspection Neck: Full Range of Motion, Supple Respiratory: Chest Non Tender, No Accessory Muscle Use, No Respiratory Distress Cardiovascular: Regular Rate, Rhythm, No JVD Gastrointestinal: non tender, soft Extremity: Normal Capillary Refill, Normal Inspection, No Pedal Edema Neurologic/Psychiatric: Alert, Disoriented Skin: Warm/Dry, Ecchymosis, Pallor Lymphatic: No Adenopathy Results Lab Laboratory Tests 05/11/23 04:00: White Blood Count 7.6, Red Blood Count 2.56L, Hemoglobin 9.1L, Hematocrit 26L, Mean Corpuscular Volume 101H, Mean Corpuscular Hemoglobin 36H, Mean Corpuscular Hemoglobin Concent 35, Red Cell Distribution Width 14.0, Platelet Count 132, Mean Platelet Volume 10.3, Immature Granulocyte % (Auto) 1, Neutrophils (%) (Auto) 77H, Lymphocytes (%) (Auto) 16, Monocytes (%) (Auto) 5, Eosinophils (%) (Auto) 1, Basophils (%) (Auto) 0, Neutrophils # (Auto) 5.8, Lymphocytes # (Auto) 1.2, Monocytes # (Auto) 0.4, Eosinophils # (Auto) 0.1, Basophils # (Auto) 0.0, Immature Granulocyte # (Auto) 0.1, Sodium Level 135, Potassium Level 3.6, Chloride Level 107, Carbon Dioxide Level 21, Anion Gap 7, Blood Urea Nitrogen 4L , Creatinine 0.65, Estimat Glomerular Filtration Rate 101, BUN/Creatinine Ratio 6, Glucose Level 97, Calcium Level 7.0L, Corrected Calcium 8.3L, Phosphorus Level < 0.7*L, Magnesium Level 1.9, Total Bilirubin 1.4H, Aspartate Amino Transf (AST/SGOT) 20, Alanine Aminotransferase (ALT/SGPT) 21, Alkaline Phosphatase 81, Total Protein 4.7L, Albumin 2.4L 05/11/23 11:58: Glucometer 96 Microbiology 05/08/23 MRSA Screen - Final, Complete MRSA not isolated 05/08/23 Urine Culture - Final, Complete NO GROWTH 05/08/23 Blood Culture - Preliminary, Resulted No growth Assessment/Plan Assessment/Plan Assessment/Plan Anemia likely from GI bleed. Esophagitis Cholelithiasis Hx alcohol use - family reports heavy quit about 1 month ago possibly Weight loss. esophageal ulceration s/p egd c biopsy Patient with gi bleed and needs further workup with EGD colonoscopy This also will look for cause of weight loss. Patient with gallstones, but not tender on exam so more likely incidental finding IV fluids NPO Follow hgb transfuse if needed Colonoscopy for today CIWA Esophageal ulceration-protonix Clinical Quality Measures DVT/VTE Risk/Contraindication: Contraindications-Pharm: Other *list below* Other: RAINE Aguirre DO May 11, 2023 19:27
--- NOTE | 2023-05-11 19:29 | Progress Note-Post Operative ---
Post-Operative Progess Note Surgeon (s)/Director Records Management (s) Surgeon RAINE SWAIN DO Director Records Management: na Pre-Operative Diagnosis gi bleed, poor prep Post-Operative Diagnosis rectal ulceration, anorectal ischemia possible mass Procedure & Operative Findings Date of Procedure 05/11/23 Procedure Performed/Findings colonoscopy c cold biopies Anesthesia Type per learning and development administrator Estimated Blood Loss Estimated blood loss (mL): scant Specimens/Packing Specimens Removed rectal ulceration, anorectal ischemia possible mass RAINE SWAIN DO May 11, 2023 19:29
[2023-05-12] MEDS: inSUlin ASPART (NovoLOG) 1 UNIT/0.01 ML (CHARGE PER UNIT) SC SCH ×2 (00:13→05:48)
--- NOTE | 2023-05-12 02:40 | OPERATIVE REPORT ---
DATE OF SERVICE: 05/11/2023 PREOPERATIVE DIAGNOSES: Gastrointestinal bleed, poor prep and a colonoscopy previously. POSTOPERATIVE DIAGNOSES: Rectal ulceration, anorectal ischemia, possible mass. SURGEON: Raine Lancaster DO. ANESTHESIA: Per ENGINEERING PROGRAMMER. ESTIMATED BLOOD LOSS: Scant. PROCEDURE: Colonoscopy with cold biopsies of rectal ulceration and anorectal ischemia, possible mass. SPECIMENS: Rectal ulceration, anorectal ischemia and muscle mass. INDICATIONS: The patient is a 68-year-old male admitted to the hospital. He had poor prep yesterday. He had a fecal disimpaction. He was reprepped for colonoscopy today. DESCRIPTION OF PROCEDURE: The patient was placed in left lateral recumbent position. Timeout was performed. Digital rectal exam was performed noting mucosal change or fullness in the anorectal area circumferentially. Scope was inserted in the rectum and advanced all the way to the cecum with minimal difficulty. No polyps, masses or ulcerations within the cecum. Prep was adequate with irrigation and suction. Scope was then slowly retracted back. No polyps, masses or ulcerations within the ascending, transverse and descending colon and sigmoid colon. Once in the rectum noted to be an ulceration present. Cold biopsies obtained. Scope was retroflexed noting ischemic appearance circumferentially around the anorectal area, possible mass. Scope was returned to its normal position. Multiple biopsies were obtained of the anorectal area. Scope was then slowly retracted back until completely removed. The patient tolerated the procedure well without complications, taken to recovery room in stable condition. RECOMMENDATIONS: Continue current management and await biopsy results. The patient will need repeat colonoscopy depending up on biopsy results, but due to age, may not need any further depending on pathology; however, would likely repeat if pathology is normal in 3-6 months at least [ ]. Job ID: [id number] DocumentID: [id number] Dictated Date: 05/11/2023 19:41:52 Court Bailiff Or Sheriff Date: 05/12/2023 02:37:00 Dictated By: RAINE LANCASTER DO
[2023-05-12 05:23] LABS: BASOPHILS % (AUTO) 0 % (0-10); MEAN CORPUSCULAR VOLUME 103 fL (80-99)
[2023-05-12 05:25] LABS: EOSINOPHILS # (AUTO) 0.1 10^3/uL (0.0-0.3); EOSINOPHILS % (AUTO) 3 % (0-10); HEMATOCRIT 24 % (40-54); HEMOGLOBIN 8.3 g/dL (13.3-17.7); LYMPHOCYTES % (AUTO) 21 % (12-44); MEAN CORPUSCULAR HEMOGLOBIN 36 pg (25-34); MEAN CORPUSCULAR HGB CONC 35 g/dL (32-36); MEAN PLATELET VOLUME 10.2 fL (9.0-12.2); MONOCYTES # (AUTO) 0.3 10^3/uL (0.0-1.0); MONOCYTES % (AUTO) 6 % (0-12); NEUTROPHILS # (AUTO) 3.3 10^3/uL (1.8-7.8); NEUTROPHILS % (AUTO) 69 % (42-75); PLATELET COUNT 117 10^3/uL (130-400); WHITE BLOOD COUNT 4.8 10^3/uL (4.3-11.0)
[2023-05-12 05:40] LABS: ALBUMIN 2.1 GM/DL (3.2-4.5); POTASSIUM 3.4 MMOL/L (3.6-5.0)
[2023-05-12 05:41] LABS: CALCIUM 6.2 MG/DL (8.5-10.1)
[2023-05-12 05:42] LABS: TOTAL PROTEIN 4.3 GM/DL (6.4-8.2)
[2023-05-12 05:44] LABS: BILIRUBIN,TOTAL 1.1 MG/DL (0.1-1.0)
[2023-05-12 05:46] LABS: CREATININE SERUM 0.61 MG/DL (0.60-1.30)
[2023-05-12 05:49] LABS: MAGNESIUM 1.3 MG/DL (1.6-2.4)
[2023-05-12] MEDS: THIAMINE 100 MG (VITAMIN B-1) TAB PO SCH (05:53)
[2023-05-12] MEDS: NS IV 1000 ML 1,000 ML IV SCH ×2 (05:53→09:57)
--- NOTE | 2023-05-12 07:29 | Progress Note - Hospitalist ---
Subjective HPI/CC On Admission Date Seen by Provider: May 12, 2023 Time Seen by Provider: 11:00 Chief complaint: GI bleed HPI: This is a 68-year-old male former alcoholic who presented to the ER with bloody stools. Patient not cooperating. Dr. Lancaster will be consulted. Alcohol withdrawal protocol maintain Banana bag once a day to prevent Korsakoff psychosis and Warnicke's encephalopathy. Subjective/Events-last exam Patient doing much better Took a shower and nurses helped him shave Labs remained stable No falls Discontinue catheter Hep-Lock IV fluid Start multivitamin Review of Systems General: Fatigue, Malaise Objective Exam Vital Signs Vital Signs Date Time Temp Pulse Resp B/P (MAP) Pulse Ox O2 Delivery O2 Flow Rate FiO2 05/12/23 16:12 36.8 85 18 134/80 (98) 99 Room Air 05/12/23 12:00 0.00 05/12/23 09:02 21 Capillary Refill : Less Than 3 Seconds General Appearance: No Apparent Distress, WD/WN, Chronically ill Respiratory: Lungs Clear, Normal Breath Sounds Cardiovascular: Regular Rate, Rhythm Neurologic/Psychiatric: Alert, Oriented x3, No Motor/Sensory Deficits, Normal Mood/Affect Results/Procedures Lab Laboratory Tests 05/12/23 05:10 Patient resulted labs reviewed. Assessment/Plan Assessment and Plan Assess & Plan/Chief Complaint Assessment: GI bleed due to esophageal ulcer Alcoholism High risk for alcohol withdrawal Hypotension requiring pressor therapy Plan: Hep-Lock IV fluid CIWA protocol Dr. Lancaster PPI Critical Care Critically Ill Patient Clinical Quality Measures DVT/VTE Risk/Contraindication: Contraindications-Pharm: Other *list below* Other: KOLE Haskins DO May 12, 2023 07:29
[2023-05-12] MEDS: DOCUSATE SODIUM 100 MG (COLACE) CAP PO SCH ×2 (07:45→20:37)
[2023-05-12] MEDS ORDERED: KCL 20 MEQ TAB (K-DUR) PO NR (08:00)
[2023-05-12] MEDS: POTASSIUM CL 10MEQ/50ML IVPB 50 ML IV SCH ×2 (08:15→08:16)
[2023-05-12] MEDS: MAGNESIUM 1 GM/100 ML IVPB 100 ML IV SCH ×6 (08:15→12:45)
[2023-05-12] MEDS: PANTOPRAZOLE 40 MG (PROTONIX) VIAL IV SCH ×2 (08:15→19:54)
[2023-05-12 09:02] VITALS: BP 107/66
[2023-05-12] MEDS: cefTRIAXone IV/IM 1,000 MG in NS (IVPB) 50 ML IV SCH (10:30)
[2023-05-12 12:11] VITALS: BP 115/72
[2023-05-12] MEDS ORDERED: MULTIVIT W/MINERALS TAB (THERAGRAN M) PO NR (12:15)
[2023-05-12 16:12] VITALS: BP 134/80
[2023-05-12 19:27] VITALS: BP 129/78
--- NOTE | 2023-05-12 20:05 | Progress Note - Surgery ---
Subjective Date Seen by a Provider: May 12, 2023 Time Seen by a Provider: 08:16 Subjective/Events-last exam Patient states he is doing well. He is tolerating diet. He has not had any blood in the stools. Patient has no abdominal pain. Feeling little bit better today. Denies any nausea vomiting fever sweats chills shortness of breath or chest pain. Objective Exam Vital Signs Date Time Temp Pulse Resp B/P (MAP) Pulse Ox O2 Delivery O2 Flow Rate FiO2 05/12/23 19:27 36.9 94 16 129/78 (95) 98 Room Air 05/12/23 16:12 36.8 85 18 134/80 (98) 99 Room Air 05/12/23 12:11 36.6 85 19 115/72 (86) 98 Room Air 05/12/23 12:00 98 Room Air 0.00 05/12/23 09:02 36.6 72 98 21 05/12/23 09:00 77 19 103/64 (78) 97 Room Air 05/12/23 08:00 97 Room Air 05/12/23 08:00 73 15 107/66 (81) 99 Room Air 05/12/23 07:15 98 Room Air 0.00 05/12/23 07:00 70 6 87/49 (66) 98 Room Air 05/12/23 07:00 68 05/12/23 06:00 78 28 109/70 (83) 98 Room Air 05/12/23 05:00 70 13 112/71 (85) 97 Room Air 05/12/23 04:00 66 16 99/61 (74) 98 Room Air 05/12/23 04:00 97 Room Air 05/12/23 03:00 71 14 115/69 (84) 97 Room Air 05/12/23 02:00 78 19 109/65 (80) 97 Room Air 05/12/23 01:57 79 05/12/23 01:00 75 19 113/67 (82) 97 Room Air 05/12/23 00:00 74 21 113/77 (89) 97 Room Air 05/11/23 23:59 97 Room Air 05/11/23 23:00 74 19 104/62 (76) 98 Room Air 05/11/23 22:00 77 19 108/65 (79) 97 Room Air 05/11/23 21:00 81 18 105/62 (76) 97 Room Air I & O 05/12/23 07:00 Intake Total 4010 ml Output Total 2720 ml Balance 1290 ml Capillary Refill : Less Than 3 Seconds General Appearance: No Apparent Distress, WD/WN, Chronically ill HEENT: PERRL/EOMI, Normal ENT Inspection Neck: Full Range of Motion, Non Tender, Supple Respiratory: Chest Non Tender, No Accessory Muscle Use, No Respiratory Distress Cardiovascular: Regular Rate, Rhythm, No JVD Gastrointestinal: non tender, soft Extremity: Normal Capillary Refill, Normal Inspection, No Pedal Edema Neurologic/Psychiatric: Alert, Oriented x3, No Motor/Sensory Deficits, Normal Mood/Affect Skin: Warm/Dry, Ecchymosis, Pallor Lymphatic: No Adenopathy Results Lab Laboratory Tests 05/12/23 00:06: Glucometer 86 05/12/23 05:10: White Blood Count 4.8, Red Blood Count 2.30L, Hemoglobin 8.3L, Hematocrit 24L, Mean Corpuscular Volume 103H, Mean Corpuscular Hemoglobin 36H, Mean Corpuscular Hemoglobin Concent 35, Red Cell Distribution Width 14.0, Platelet Count 117L, Mean Platelet Volume 10.2, Immature Granulocyte % (Auto) 1, Neutrophils (%) (Auto) 69, Lymphocytes (%) (Auto) 21, Monocytes (%) (Auto) 6, Eosinophils (%) (Auto) 3, Basophils (%) (Auto) 0, Neutrophils # (Auto) 3.3, Lymphocytes # (Auto) 1.0, Monocytes # (Auto) 0.3, Eosinophils # (Auto) 0.1, Basophils # (Auto) 0.0, Immature Granulocyte # (Auto) 0.1, Percent Immature Platelet Fraction 2.2, Sodium Level 137, Potassium Level 3.4L, Chloride Level 111H, Carbon Dioxide Level 19L, Anion Gap 7, Blood Urea Nitrogen 4L, Creatinine 0.61, Estimat Glomerular Filtration Rate 103, BUN/Creatinine Ratio 7, Glucose Level 81, Calcium Level 6.2L, Corrected Calcium 7.7L, Phosphorus Level 1.1L, Magnesium Level 1.3L, Total Bilirubin 1.1H, Aspartate Amino Transf (AST/SGOT) 20, Alanine Aminotransferase (ALT/SGPT) 21, Alkaline Phosphatase 71, Total Protein 4.3L, Albumin 2.1L Microbiology 05/08/23 MRSA Screen - Final, Complete MRSA not isolated 05/08/23 Urine Culture - Final, Complete NO GROWTH 05/08/23 Blood Culture - Preliminary, Resulted No growth Assessment/Plan Assessment/Plan Assessment/Plan Anemia likely from GI bleed. Esophagitis Cholelithiasis Hx alcohol use - family reports heavy quit about 1 month ago possibly Weight loss. esophageal ulceration s/p egd c biopsy Rectal ulceration and anal rectal ischemia possible mass Patient EGD and colonoscopy biopsies. Awaiting pathology. Patient with gallstones, but not tender on exam so more likely incidental finding IV fluids Follow hgb transfuse if needed CIWA Esophageal ulceration-protonix Regular diet Clinical Quality Measures DVT/VTE Risk/Contraindication: Contraindications-Pharm: Other *list below* Other: RAINE Aguirre DO May 12, 2023 20:05
[2023-05-12 23:50] VITALS: BP 132/76
[2023-05-13] VITALS (7 sets, daily range): BP systolic 116–148; BP diastolic 65–85
[2023-05-13] MEDS: MULTIVIT W/MINERALS TAB (THERAGRAN M) PO SCH (05:17)
[2023-05-13] MEDS: THIAMINE 100 MG (VITAMIN B-1) TAB PO SCH (05:17)
[2023-05-13 05:28] LABS: BASOPHILS % (AUTO) 0 % (0-10); EOSINOPHILS # (AUTO) 0.1 10^3/uL (0.0-0.3); EOSINOPHILS % (AUTO) 2 % (0-10); HEMATOCRIT 25 % (40-54); HEMOGLOBIN 8.8 g/dL (13.3-17.7); LYMPHOCYTES # (AUTO) 0.9 10^3/uL (1.0-4.0); LYMPHOCYTES % (AUTO) 18 % (12-44); MEAN CORPUSCULAR HEMOGLOBIN 36 pg (25-34); MEAN CORPUSCULAR HGB CONC 35 g/dL (32-36); MEAN CORPUSCULAR VOLUME 102 fL (80-99); MEAN PLATELET VOLUME 10.2 fL (9.0-12.2); MONOCYTES # (AUTO) 0.4 10^3/uL (0.0-1.0); MONOCYTES % (AUTO) 7 % (0-12); NEUTROPHILS # (AUTO) 3.4 10^3/uL (1.8-7.8); NEUTROPHILS % (AUTO) 70 % (42-75); PLATELET COUNT 133 10^3/uL (130-400); WHITE BLOOD COUNT 4.9 10^3/uL (4.3-11.0)
[2023-05-13 05:48] LABS: ALBUMIN 2.3 GM/DL (3.2-4.5); BILIRUBIN,TOTAL 1.2 MG/DL (0.1-1.0); CALCIUM 6.3 MG/DL (8.5-10.1); CREATININE SERUM 0.62 MG/DL (0.60-1.30); MAGNESIUM 1.8 MG/DL (1.6-2.4); POTASSIUM 3.6 MMOL/L (3.6-5.0); TOTAL PROTEIN 4.6 GM/DL (6.4-8.2)
--- NOTE | 2023-05-13 07:18 | Progress Note - Surgery ---
Subjective Date Seen by a Provider: May 13, 2023 Time Seen by a Provider: 07:18 Subjective/Events-last exam Doing well. Tolerating diet. No abdominal pain. No blood per rectum. Hgb stable. Denies n/v fever sweats chills shortness of breath or chest pain. Objective Exam Vital Signs Date Time Temp Pulse Resp B/P (MAP) Pulse Ox O2 Delivery O2 Flow Rate FiO2 05/13/23 03:49 37.0 87 18 144/85 (104) 99 Room Air 05/13/23 03:09 Room Air 05/12/23 23:50 37.2 80 18 132/76 (94) 97 Room Air 05/12/23 21:45 Room Air 05/12/23 19:27 36.9 94 16 129/78 (95) 98 Room Air 05/12/23 16:12 36.8 85 18 134/80 (98) 99 Room Air 05/12/23 12:11 36.6 85 19 115/72 (86) 98 Room Air 05/12/23 12:00 98 Room Air 0.00 05/12/23 09:02 36.6 72 98 21 05/12/23 09:00 77 19 103/64 (78) 97 Room Air 05/12/23 08:00 97 Room Air 05/12/23 08:00 73 15 107/66 (81) 99 Room Air I & O 05/13/23 07:00 Intake Total 1900 ml Output Total 750 ml Balance 1150 ml Capillary Refill : Less Than 3 Seconds General Appearance: No Apparent Distress, WD/WN, Chronically ill HEENT: PERRL/EOMI, Normal ENT Inspection Neck: Full Range of Motion, Non Tender, Supple Respiratory: Chest Non Tender, No Accessory Muscle Use, No Respiratory Distress Cardiovascular: Regular Rate, Rhythm, No JVD Gastrointestinal: non tender, soft Extremity: Normal Capillary Refill, Normal Inspection, No Pedal Edema Neurologic/Psychiatric: Alert, Oriented x3, No Motor/Sensory Deficits, Normal Mood/Affect Skin: Warm/Dry, Ecchymosis, Pallor Lymphatic: No Adenopathy Results Lab Laboratory Tests 05/13/23 05:15: White Blood Count 4.9, Red Blood Count 2.48L, Hemoglobin 8.8L, Hematocrit 25L, Mean Corpuscular Volume 102H, Mean Corpuscular Hemoglobin 36H, Mean Corpuscular Hemoglobin Concent 35, Red Cell Distribution Width 14.3, Platelet Count 133, Mean Platelet Volume 10.2, Immature Granulocyte % (Auto) 3, Neutrophils (%) (Auto) 70, Lymphocytes (%) (Auto) 18, Monocytes (%) (Auto) 7, Eosinophils (%) (Auto) 2, Basophils (%) (Auto) 0, Neutrophils # (Auto) 3.4, Lymphocytes # (Auto) 0.9L, Monocytes # (Auto) 0.4, Eosinophils # (Auto) 0.1, Basophils # (Auto) 0.0, Immature Granulocyte # (Auto) 0.1, Sodium Level 135, Potassium Level 3.6, Chloride Level 110H, Carbon Dioxide Level 19L, Anion Gap 6, Blood Urea Nitrogen 4L, Creatinine 0.62, Estimat Glomerular Filtration Rate 103, BUN/Creatinine Ratio 6, Glucose Level 89, Calcium Level 6.3L, Corrected Calcium 7.7L, Magnesium Level 1.8, Total Bilirubin 1.2H, Aspartate Amino Transf (AST/SGOT) 26, Alanine Aminotransferase (ALT/SGPT) 30, Alkaline Phosphatase 76, Total Protein 4.6L, Albumin 2.3L Microbiology 05/08/23 MRSA Screen - Final, Complete MRSA not isolated 05/08/23 Urine Culture - Final, Complete NO GROWTH 05/08/23 Blood Culture - Preliminary, Resulted No growth Assessment/Plan Assessment/Plan Assessment/Plan Anemia likely from GI bleed. Esophagitis Cholelithiasis Hx alcohol use - family reports heavy quit about 1 month ago possibly Weight loss. esophageal ulceration s/p egd c biopsy Rectal ulceration and anal rectal ischemia possible mass Patient EGD and colonoscopy biopsies. Awaiting pathology. Patient with gallstones, but not tender on exam so more likely incidental finding Hgb stable CIWA Esophageal ulceration-protonix Regular diet Clinical Quality Measures DVT/VTE Risk/Contraindication: Contraindications-Pharm: Other *list below* Other: RAINE Aguirre DO May 13, 2023 07:18
[2023-05-13] MEDS: PANTOPRAZOLE 40 MG (PROTONIX) VIAL IV SCH ×2 (09:37→21:15)
[2023-05-13] MEDS: DOCUSATE SODIUM 100 MG (COLACE) CAP PO SCH ×2 (09:37→21:21)
--- NOTE | 2023-05-13 10:16 | Physical Therapy Evaluation ---
PT Evaluation-General Medical Diagnosis Admission Date May 08, 2023 at 13:48 Medical Diagnosis: acute kidney injury/dehydration/GI Bleed/hypotension Onset Date: May 08, 2023 Therapy Diagnosis Therapy Diagnosis: debility Height/Weight Height (Feet): 5 Height (Inches): 7.00 Weight (Pounds): 192 Precautions Precautions/Isolations: Standard Precautions Referral Physician: Teresa Reason for Referral: Evaluation/Treatment Medical History Pertinent Medical History: Alcoholism, HTN Current History ER secondary to decreased appetite/nausea and vomiting/falls/weakness Reviewed History: Yes Social History Home: Single Level Current Living Status: Alone Entry Into Home: Stairs Without Railing PT Steps Into Home: 2 Prior Prior Level of Function SCALE: Activities may be completed with or without assistive devices. 0-Zqhgyagxqd-jdlhgkz completes the activity by him/herself with no assistance from a helper. 5-Set-up or Clean-up Assistance-helper sets up or cleans up; patient completes activity. [place] assists only prior to or following the activity. 4-Supervision or Touching Assistance-helper provides verbal cues and/or touching/steadying and/or contact guard assistance as patient completes activity. Assistance may be provided throughout the activity or intermittently. 3-Partial/Moderate Assistance-helper does LESS THAN HALF the effort. [place] lifts, holds or supports trunk or limbs, but provides less than half the effort. 2-Substantial/Maximal Assistance-helper does MORE THAN HALF the effort. [place] lifts or holds trunk or limbs and provides more than half the effort. 4-Shpwwgbjr-shiaad does ALL the effort. Patient does none of the effort to complete the activity. Or, the assistance of 2 or more helpers is required for the patient to complete the activity. If activity was not attempted, code reason: 7-Patient Refused. 9-Not Applicable-not attempted and the patient did not perform the activity before the current illness, exacerbation or injury. 10-Not Attempted due to Environmental Limitations-(lack of equipment, weather restraints, etc.). 88-Not Attempted due to Medical Conditions or Safety Concerns. Bed Mobility: 6 Transfers (B,C,W/C): 6 Gait: 6 Stairs: 6 Indoor Mobility (Ambulation): Independent Stairs: Independent Prior Devices Use: None PT Evaluation-Current Subjective Patient agrees to PT. Objective Patient Orientation: Normal For Age ROM/Strength ROM Lower Extremities bilateral LE WFL Strength Lower Extremities 4-/5 grossly bilateral LE all planes Integumentary/Posture Bowel Incontinence: No Bladder Incontinence: No Posture WFL Neuromuscular (Tone, Coordination, Reflexes) grossly intact Sensory Vision: Functional Hearing: Functional Transfers Lying to Sitting/Side of Bed(Q: 6 Sit to Stand (QC): 4 Chair/Pum-ai-Zxbeq Xfer(QC): 4 Gait Mode of Locomotion: Walk Anticipated Mode of Locomotion: Walk Walk 10 feet (QC): 4 Walk 50 ft with 2 Turns(QC): 4 Walk 150 ft (QC): 4 Distance: 500' Gait Assistive Device: FWW Comments/Gait Description slow, steady functional gait sequence Balance Sitting Static: Normal Sitting Dynamic: Normal Standing Static: Normal Standing Dynamic: Normal Assessment/Needs Patient will be seen short term by skilled PT to address functional mobility to ensure safe return to home at maximum LOF. Rehab Potential: Fair PT Snf Goals Snf Goals PT Snf Goals Time Frame: May 18, 2023 Roll Left & Right (QC): 6 Sit to Lying (QC): 6 Lying-Sitting on Side/Bed(QC): 6 Sit to Stand (QC): 6 Chair/Exl-zd-Hmdjn Xfer(QC): 6 Toilet Transfer (QC): 6 Walk 10 feet (QC): 6 Walk 50ft with 2 Turns (QC): 6 Walk 150 ft (QC): 6 PT Plan Problem List Problem List: Activity Tolerance Treatment/Plan Treatment Plan: Continue Plan of Care Treatment Plan: Education, Functional Activity Ana, Functional Strength, Gait, Safety, Therapeutic Exercise, Transfers Treatment Duration: May 18, 2023 Frequency: 5 times per week Estimated Hrs Per Day: .25 hour per day Patient and/or Family Agrees t: Yes Time Time In: 850 Time Out: 903 DATE: May 13, 2023 Total Billed Treatment Time: 13 Total Billed Treatment 1 visit EVMod 13 min VEE CARNES PT May 13, 2023 10:16
--- NOTE | 2023-05-13 10:39 | Occupational Therapy Eval ---
OT Evaluation-General/PLF Medical Diagnosis Admission Date May 08, 2023 at 13:48 Medical Diagnosis: acute kidney injury/dehydration/GI Bleed/hypotension Onset Date: May 08, 2023 Therapy Diagnosis Therapy Diagnosis: weakness Height/Weight Height (Feet): 5 Height (Inches): 7.00 Weight (Pounds): 192 Precautions Precautions/Isolations: Standard Precautions Referral Physician: Teresa Referral Reason: Self Care, Evaluation/Treatment Medical History Pertinent Medical History: Alcoholism, HTN Additional Medical History 68-year-old male former alcoholic who presented to the ER with bloody stools. Reviewed History: Yes Social History Home: Single Level Current Living Status: Alone Entry Into Home: Stairs Without Railing Steps Into Home: 2 ADL-Prior Level of Function SCALE: Activities may be completed with or without assistive devices. 6-Atsmmrsdxp-foexkkf completes the activity by him/herself with no assistance from a helper. 5-Set-up or Clean-up Assistance-helper sets up or cleans up; patient completes activity. [place] assists only prior to or following the activity. 4-Supervision or Touching Assistance-helper provides verbal cues and/or touching/steadying and/or contact guard assistance as patient completes activity. Assistance may be provided throughout the activity or intermittently. 3-Partial/Moderate Assistance-helper does LESS THAN HALF the effort. [place] lifts, holds or supports trunk or limbs, but provides less than half the effort. 2-Substantial/Maximal Assistance-helper does MORE THAN HALF the effort. [place] lifts or holds trunk or limbs and provides more than half the effort. 8-Uoosviodn-iooglm does ALL the effort. Patient does none of the effort to complete the activity. Or, the assistance of 2 or more helpers is required for the patient to complete the activity. If activity was not attempted, code reason: 7-Patient Refused. 9-Not Applicable-not attempted and the patient did not perform the activity before the current illness, exacerbation or injury. 10-Not Attempted due to Environmental Limitations-(lack of equipment, weather restraints, etc.). 88-Not Attempted due to Medical Conditions or Safety Concerns. Self Care: Independent Functional Cognition: Independent Drive Self: Yes OT Current Status Subjective Agreeable to OT, required minimal encouragement to increase activity. Mental Status/Objective Patient Orientation: Person, Place, Time, Situation Current Glasses/Contacts: Yes Hand Dominance: Right Upper Extremity ROM ROM WFLS Upper Extremity Strength 4/5 BUE grossly ADL-Treatment Eating (QC): 6 Oral Hygiene (QC): 5 (instructed patient to use call light for OOB assistance) Shower/Bathe Self (QC): 4 (reports staff helped with shower and partaily braided hair.) Upper Body Dressing (QC): 5 Lower Body Dressing (QC): 5 On/Off Footwear (QC): 5 Toileting Hygiene (QC): 5 Education OT Patient Education: Energy conservation, Modified ADL techniques, Progress toward Goal/Update tx plan, Purpose of tx/functional activities, Reviewed precautions, Rehab process, Safety issues, Transfer techniques, Use of adapted equipment Teaching Recipient: Patient Teaching Methods: Demonstration Response to Teaching: Verbalize Understanding, Return Demonstration OT Alf Goals Lei Maker Goals 1=Demonstrate adherence to instructed precautions during ADL tasks. 2=Patient will verbalize/demonstrate understanding of assistive devices/modifications for ADL. 3=Patient will improve strength/tolerance for activity to enable patient to perform ADL's. OT Education/Plan Problem List/Assessment Assessment: No Skilled OT Needs ID'd Discharge Recommendations Plan/Recommendations: Discontinue OT Treatment Plan/Plan of Care Treatment,Training & Education: Yes Patient would benefit from OT for education, treatment and training to promote independence in ADL's, mobility, safety and/or upper extremity function for ADL's. Plan of Care: OTHER (Eval only) Treatment Duration: May 13, 2023 Frequency: 1 time per week Estimated Hrs Per Day: .25 hour per day Agreement: Yes Rehab Potential: Good Time Start Time: 08:50 Stop Time: 09:03 DATE: May 13, 2023 Total Time Billed (hr/min): 13 Billed Treatment Time EVL 13 ANAIS SMITH OT May 13, 2023 10:39
--- NOTE | 2023-05-13 15:52 | Progress Note ---
Subjective Subjective/Events-last exam Afebrile, no acute events, states he tolerated some food yesterday and is feeling a little stronger. Son is coming and he states he can stay with him. Reports he was ambulating independently prior to admit, but was falling a lot. Objective Exam Last Set of Vital Signs Vital Signs Date Time Temp Pulse Resp B/P (MAP) Pulse Ox O2 Delivery O2 Flow Rate FiO2 05/13/23 11:34 36.8 91 18 116/71 (86) 97 Room Air 05/12/23 12:00 0.00 05/12/23 09:02 21 Capillary Refill : Less Than 3 Seconds I&O Intake and Output 05/13/23 00:00 Intake Total 3000 ml Output Total 1225 ml Balance 1775 ml Intake Oral 1500 ml IV Total 1500 ml Output Urine Total 1225 ml # Voids 1 General: Alert, No Acute Distress Lungs: Clear to Auscultation, Normal Air Movement Heart: Regular Rate, No Murmurs Abdomen: Normal Bowel Sounds, Soft Extremities: No Edema Psych/Mental Status: Mental Status NL, Mood NL Results/Procedures Lab Laboratory Tests 05/13/23 05:15: White Blood Count 4.9, Red Blood Count 2.48L, Hemoglobin 8.8L, Hematocrit 25L, Mean Corpuscular Volume 102H, Mean Corpuscular Hemoglobin 36H, Mean Corpuscular Hemoglobin Concent 35, Red Cell Distribution Width 14.3, Platelet Count 133, Mean Platelet Volume 10.2, Immature Granulocyte % (Auto) 3, Neutrophils (%) (Auto) 70, Lymphocytes (%) (Auto) 18, Monocytes (%) (Auto) 7, Eosinophils (%) (Auto) 2, Basophils (%) (Auto) 0, Neutrophils # (Auto) 3.4, Lymphocytes # (Auto) 0.9L, Monocytes # (Auto) 0.4, Eosinophils # (Auto) 0.1, Basophils # (Auto) 0.0, Immature Granulocyte # (Auto) 0.1, Sodium Level 135, Potassium Level 3.6, Chloride Level 110H, Carbon Dioxide Level 19L, Anion Gap 6, Blood Urea Nitrogen 4L, Creatinine 0.62, Estimat Glomerular Filtration Rate 103, BUN/Creatinine Ratio 6, Glucose Level 89, Calcium Level 6.3L, Corrected Calcium 7.7L, Magnesium Level 1.8, Total Bilirubin 1.2H, Aspartate Amino Transf (AST/SGOT) 26, Alanine Aminotransferase (ALT/SGPT) 30, Alkaline Phosphatase 76, Total Protein 4.6L, Albumin 2.3L Microbiology 05/08/23 MRSA Screen - Final, Complete MRSA not isolated 05/08/23 Urine Culture - Final, Complete NO GROWTH 05/08/23 Blood Culture - Preliminary, Resulted No growth Assessment/Plan Assessment/Plan (1) Acute kidney injury Status: Resolved (2) Acute metabolic encephalopathy Status: Resolved (3) Hypotension Status: Resolved Assessment & Plan: Initially requiring pressors, now stable. Qualifiers: Qualified Codes: I95.9 - Hypotension, unspecified (4) GI bleed Status: Resolved Assessment & Plan: s/p EG and colo with esophagitis and rectal ulceration. No further bleeding, hemoglobin stable. On PPI, pathologies pending. Qualifiers: Qualified Codes: K92.2 - Gastrointestinal hemorrhage, unspecified (5) Esophagitis Status: Chronic Assessment & Plan: Pantoprazole BID (6) Rectal ulceration Status: Acute Assessment & Plan: Biopsy of possible mass pending. (7) Cholelithiasis Status: Chronic Assessment & Plan: Appreciate Surgery recommendations, not thought to be acute at this time. (8) Elevated lactic acid level Status: Resolved Assessment & Plan: Suspect secondary to hypovolemia/GI bleed. Resolved. (9) Acute cystitis with hematuria Status: Acute Assessment & Plan: UA consistent with infection, culture with no growth. Completed course of ceftriaxone. (10) Debility Status: Chronic Assessment & Plan: PT, OT Clinical Quality Measures DVT/VTE Risk/Contraindication: Contraindications-Pharm: Other *list below* Other: KATHERINE Renee MD May 13, 2023 15:52
[2023-05-14 04:00] VITALS: BP 116/83
[2023-05-14 05:15] LABS: BASOPHILS % (AUTO) 0 % (0-10); EOSINOPHILS # (AUTO) 0.1 10^3/uL (0.0-0.3); EOSINOPHILS % (AUTO) 3 % (0-10); HEMATOCRIT 25 % (40-54); HEMOGLOBIN 8.5 g/dL (13.3-17.7); LYMPHOCYTES % (AUTO) 22 % (12-44); MEAN CORPUSCULAR HEMOGLOBIN 35 pg (25-34); MEAN CORPUSCULAR HGB CONC 34 g/dL (32-36); MEAN CORPUSCULAR VOLUME 103 fL (80-99); MEAN PLATELET VOLUME 9.5 fL (9.0-12.2); MONOCYTES # (AUTO) 0.3 10^3/uL (0.0-1.0); MONOCYTES % (AUTO) 7 % (0-12); NEUTROPHILS % (AUTO) 65 % (42-75); PLATELET COUNT 152 10^3/uL (130-400); WHITE BLOOD COUNT 4.7 10^3/uL (4.3-11.0)
[2023-05-14 05:28] LABS: ALBUMIN 2.2 GM/DL (3.2-4.5); POTASSIUM 3.4 MMOL/L (3.6-5.0)
[2023-05-14 05:29] LABS: CALCIUM 6.2 MG/DL (8.5-10.1)
[2023-05-14 05:30] LABS: TOTAL PROTEIN 4.5 GM/DL (6.4-8.2)
[2023-05-14 05:32] LABS: BILIRUBIN,TOTAL 1.1 MG/DL (0.1-1.0)
[2023-05-14 05:33] LABS: PHOSPHORUS 1.1 MG/DL (2.3-4.7)
[2023-05-14 05:34] LABS: CREATININE SERUM 0.64 MG/DL (0.60-1.30)
[2023-05-14 05:37] LABS: MAGNESIUM 1.5 MG/DL (1.6-2.4)
[2023-05-14] MEDS: MULTIVIT W/MINERALS TAB (THERAGRAN M) PO SCH (06:10)
[2023-05-14] MEDS: THIAMINE 100 MG (VITAMIN B-1) TAB PO SCH (06:10)
[2023-05-14 07:30] VITALS: BP 120/71
--- NOTE | 2023-05-14 09:05 | Physical Therapy Daily Note ---
PT Daily Note-Current Subjective Pt supine in bed upon arrival to room, agreeable to PT treatment. Denies any pain at this time, Pain Section J - Health Conditions 1. Rarely or not at all 2. Occasionally 3. Frequently 4. Almost constantly 8. Unable to answer Pain Effect on Sleep: 1 Pain Interference with Therapy: 1 Pain Interference w/Day-to-Day: 1 Appearance Following session, pt up in chair with call light, tray table, and phone all within reach. All needs met Mental Status Patient Orientation: Person, Place, Situation Transfers SCALE: Activities may be completed with or without assistive devices. 9-Aqmhnqhfdp-aprzeki completes the activity by him/herself with no assistance from a helper. 5-Set-up or Clean-up Assistance-helper sets up or cleans up; patient completes activity. [place] assists only prior to or following the activity. 4-Supervision or Touching Assistance-helper provides verbal cues and/or touching/steadying and/or contact guard assistance as patient completes activity. Assistance may be provided throughout the activity or intermittently. 3-Partial/Moderate Assistance-helper does LESS THAN HALF the effort. [place] lifts, holds or supports trunk or limbs, but provides less than half the effort. 2-Substantial/Maximal Assistance-helper does MORE THAN HALF the effort. [place] lifts or holds trunk or limbs and provides more than half the effort. 9-Uyzbnudgk-msyhep does ALL the effort. Patient does none of the effort to complete the activity. Or, the assistance of 2 or more helpers is required for the patient to complete the activity. If activity was not attempted, code reason: 7-Patient Refused. 9-Not Applicable-not attempted and the patient did not perform the activity before the current illness, exacerbation or injury. 10-Not Attempted due to Environmental Limitations-(lack of equipment, weather restraints, etc.). 88-Not Attempted due to Medical Conditions or Safety Concerns. Roll Left & Right (QC): 6 Lying to Sitting/Side of Bed(Q: 6 Sit to Stand (QC): 4 Chair/Txr-lk-Cqqag Xfer(QC): 4 Gait Training Distance: 25' Gait Assistive Device: FWW Treatments Pt ambulates to and from bathroom with SBA for safety, demonstrates good balance with all activities. Assessment Current Status: Good Progress Pt has good balance and demonstrating good functional mobility this date PT Half-Way Goals Half-Way Goals PT Half-Way Goals Time Frame: May 18, 2023 Roll Left & Right (QC): 6 Sit to Lying (QC): 6 Lying-Sitting on Side/Bed(QC): 6 Sit to Stand (QC): 6 Chair/Exw-ak-Giaym Xfer(QC): 6 Toilet Transfer (QC): 6 Walk 10 feet (QC): 6 Walk 50ft with 2 Turns (QC): 6 Walk 150 ft (QC): 6 PT Plan Problem List Problem List: Activity Tolerance, Functional Strength, Safety, Balance, Gait, Transfer, Bed Mobility, ROM Treatment/Plan Treatment Plan: Continue Plan of Care Treatment Plan: Education, Functional Activity Ana, Functional Strength, Gait, Safety, Therapeutic Exercise, Transfers Treatment Duration: May 18, 2023 Frequency: 5 times per week Estimated Hrs Per Day: .25 hour per day Patient and/or Family Agrees t: Yes Time Time In: 838 Time Out: 849 DATE: May 14, 2023 Total Billed Treatment Time: 11 Total Billed Treatment 1 visit FA (11') CARMELITA RICARDO PT May 14, 2023 09:05
[2023-05-14] MEDS: DOCUSATE SODIUM 100 MG (COLACE) CAP PO SCH ×2 (09:08→19:33)
[2023-05-14] MEDS: PANTOPRAZOLE 40 MG (PROTONIX) VIAL IV SCH (09:08)
[2023-05-14] MEDS ORDERED: PANTOPRAZOLE 40 MG (PROTONIX) TAB PO ONE (09:15)
[2023-05-14] MEDS ORDERED: POTASSIUM PHOSPHATE INJ 30 MM in NS (IVPB) 250 ML IV ONE (09:30)
[2023-05-14] MEDS: MAGNESIUM 1 GM/100 ML IVPB 100 ML IV SCH ×2 (09:39→10:14)
--- NOTE | 2023-05-14 09:58 | Progress Note - Surgery ---
Subjective Date Seen by a Provider: May 14, 2023 Time Seen by a Provider: 09:56 Subjective/Events-last exam Sitting in chair. Concerned about how he needs assistance with walking. Feels weak, but getting stronger. Tolerating diet. Denies n/v fever sweats chills shortness of breath or chest pain. Objective Exam Vital Signs Date Time Temp Pulse Resp B/P (MAP) Pulse Ox O2 Delivery O2 Flow Rate FiO2 05/14/23 07:30 37.1 87 16 120/71 (87) 96 Room Air 05/14/23 04:00 37.3 84 16 116/83 (94) 98 Room Air 05/13/23 23:35 36.0 85 17 133/69 (90) 99 Room Air 0.00 0.00 05/13/23 21:15 97 Room Air 05/13/23 19:45 36.9 103 17 148/75 (99) 97 Room Air 05/13/23 18:34 36.5 97 99 21 05/13/23 16:27 36.5 97 17 130/77 (94) 99 Room Air 05/13/23 11:34 36.8 91 18 116/71 (86) 97 Room Air I & O 05/14/23 06:59 Intake Total 1430 ml Output Total 200 ml Balance 1230 ml Capillary Refill : Less Than 3 Seconds General Appearance: No Apparent Distress, WD/WN, Chronically ill HEENT: PERRL/EOMI, Normal ENT Inspection Neck: Full Range of Motion, Non Tender, Supple Respiratory: Chest Non Tender, No Accessory Muscle Use, No Respiratory Distress Cardiovascular: Regular Rate, Rhythm, No JVD Gastrointestinal: non tender, soft Extremity: Normal Capillary Refill, Normal Inspection, No Pedal Edema Neurologic/Psychiatric: Alert, Oriented x3, No Motor/Sensory Deficits, Normal Mood/Affect Skin: Warm/Dry, Ecchymosis, Pallor Lymphatic: No Adenopathy Results Lab Laboratory Tests 05/14/23 05:00: White Blood Count 4.7, Red Blood Count 2.41L, Hemoglobin 8.5L, Hematocrit 25L, Mean Corpuscular Volume 103H, Mean Corpuscular Hemoglobin 35H, Mean Corpuscular Hemoglobin Concent 34, Red Cell Distribution Width 15.0H, Platelet Count 152, Mean Platelet Volume 9.5, Immature Granulocyte % (Auto) 3, Neutrophils (%) (Auto) 65, Lymphocytes (%) (Auto) 22, Monocytes (%) (Auto) 7, Eosinophils (%) (Auto) 3, Basophils (%) (Auto) 0, Neutrophils # (Auto) 3.0, Lymphocytes # (Auto) 1.0, Monocytes # (Auto) 0.3, Eosinophils # (Auto) 0.1, Basophils # (Auto) 0.0, Immature Granulocyte # (Auto) 0.1, Sodium Level 137, Potassium Level 3.4L, Chloride Level 110H, Carbon Dioxide Level 20L, Anion Gap 7, Blood Urea Nitrogen 7, Creatinine 0.64, Estimat Glomerular Filtration Rate 102, BUN/Creatinine Ratio 11, Glucose Level 93, Calcium Level 6.2L, Corrected Calcium 7.6L, Phosphorus Level 1.1L, Magnesium Level 1.5L, Total Bilirubin 1.1H, Aspartate Amino Transf (AST/SGOT) 23, Alanine Aminotransferase (ALT/SGPT) 29, Alkaline Phosphatase 71, Total Protein 4.5L, Albumin 2.2L Microbiology 05/08/23 MRSA Screen - Final, Complete MRSA not isolated 05/08/23 Urine Culture - Final, Complete NO GROWTH 05/08/23 Blood Culture - Final, Complete No growth Assessment/Plan Assessment/Plan Assessment/Plan Anemia likely from GI bleed. Esophagitis Cholelithiasis Hx alcohol use - family reports heavy quit about 1 month ago possibly Weight loss. esophageal ulceration s/p egd c biopsy Rectal ulceration and anal rectal ischemia possible mass Patient EGD and colonoscopy biopsies. Awaiting pathology. Patient with gallstones, but not tender on exam so more likely incidental finding Hgb stable CIWA Esophageal ulceration-protonix Regular diet PT see if qualifies for rehab Clinical Quality Measures DVT/VTE Risk/Contraindication: Contraindications-Pharm: Other *list below* Other: RAINE Aguirre DO May 14, 2023 09:58
[2023-05-14] MEDS: CALCIUM CARBONATE 600 MG (CALCARB) TAB PO SCH ×2 (10:18→19:33)
[2023-05-14 11:43] VITALS: BP 125/71
--- NOTE | 2023-05-14 14:37 | Progress Note ---
Subjective Subjective/Events-last exam States he is feeling fairly well. Still a little weak and worried about that. States he doesn't think he should start exercise program until he has biopsy results from his EGD/colo. Son at bedside today, provides additional history, states patient's home is in poor state with black mold and that patient seems to have been very depressed and drinking and he believes he was having some loss of function and weight due to that. Objective Exam Last Set of Vital Signs Vital Signs Date Time Temp Pulse Resp B/P (MAP) Pulse Ox O2 Delivery O2 Flow Rate FiO2 05/14/23 11:43 36.9 87 18 125/71 (89) 98 Room Air 05/13/23 23:35 0.00 0.00 05/13/23 18:34 21 Capillary Refill : Less Than 3 Seconds I&O Intake and Output 05/14/23 00:00 Intake Total 1480 ml Balance 1480 ml Intake Oral 1480 ml # Voids 8 # Bowel Movements 1 General: Alert, No Acute Distress Lungs: Clear to Auscultation, Normal Air Movement Heart: Regular Rate, No Murmurs Extremities: No Edema Neuro: Normal Speech Psych/Mental Status: Mood NL Results/Procedures Lab Laboratory Tests 05/14/23 05:00: White Blood Count 4.7, Red Blood Count 2.41L, Hemoglobin 8.5L, Hematocrit 25L, Mean Corpuscular Volume 103H, Mean Corpuscular Hemoglobin 35H, Mean Corpuscular Hemoglobin Concent 34, Red Cell Distribution Width 15.0H, Platelet Count 152, Mean Platelet Volume 9.5, Immature Granulocyte % (Auto) 3, Neutrophils (%) (Auto) 65, Lymphocytes (%) (Auto) 22, Monocytes (%) (Auto) 7, Eosinophils (%) (Auto) 3, Basophils (%) (Auto) 0, Neutrophils # (Auto) 3.0, Lymphocytes # (Auto) 1.0, Monocytes # (Auto) 0.3, Eosinophils # (Auto) 0.1, Basophils # (Auto) 0.0, Immature Granulocyte # (Auto) 0.1, Sodium Level 137, Potassium Level 3.4L, Chloride Level 110H, Carbon Dioxide Level 20L, Anion Gap 7, Blood Urea Nitrogen 7, Creatinine 0.64, Estimat Glomerular Filtration Rate 102, BUN/Creatinine Ratio 11, Glucose Level 93, Calcium Level 6.2L, Corrected Calcium 7.6L, Phosphorus Level 1.1L, Magnesium Level 1.5L, Total Bilirubin 1.1H, Aspartate Amino Transf (AST/SGOT) 23, Alanine Aminotransferase (ALT/SGPT) 29, Alkaline Phosphatase 71, Total Protein 4.5L, Albumin 2.2L 05/14/23 10:00: Microbiology 05/08/23 MRSA Screen - Final, Complete MRSA not isolated 05/08/23 Urine Culture - Final, Complete NO GROWTH 05/08/23 Blood Culture - Final, Complete No growth Assessment/Plan Assessment/Plan (1) Acute kidney injury Status: Resolved (2) Acute metabolic encephalopathy Status: Resolved (3) Hypotension Status: Resolved Assessment & Plan: Initially requiring pressors, now stable. Qualifiers: Qualified Codes: I95.9 - Hypotension, unspecified (4) GI bleed Status: Resolved Assessment & Plan: s/p EG and colo with esophagitis and rectal ulceration. No further bleeding, hemoglobin stable. On PPI, pathologies pending. Qualifiers: Qualified Codes: K92.2 - Gastrointestinal hemorrhage, unspecified (5) Esophagitis Status: Chronic Assessment & Plan: Pantoprazole BID (6) Rectal ulceration Status: Acute Assessment & Plan: Biopsy of possible mass pending. (7) Cholelithiasis Status: Chronic Assessment & Plan: Appreciate Surgery recommendations, not thought to be acute at this time. (8) Elevated lactic acid level Status: Resolved Assessment & Plan: Suspect secondary to hypovolemia/GI bleed. Resolved. (9) Acute cystitis with hematuria Status: Acute Assessment & Plan: UA consistent with infection, culture with no growth. Completed course of ceftriaxone. (10) Debility Status: Chronic Assessment & Plan: PT, OT. Anticipate possible d/c with home health tomorrow. Clinical Quality Measures DVT/VTE Risk/Contraindication: Contraindications-Pharm: Other *list below* Other: KATHERINE Renee MD May 14, 2023 14:37
[2023-05-14 15:57] VITALS: BP 128/67
[2023-05-14 19:27] VITALS: BP 144/81
[2023-05-14 23:41] VITALS: BP 129/73
[2023-05-15 03:20] VITALS: BP 133/74
[2023-05-15] MEDS: THIAMINE 100 MG (VITAMIN B-1) TAB PO SCH (04:44)
[2023-05-15] MEDS: MULTIVIT W/MINERALS TAB (THERAGRAN M) PO SCH (04:44)
[2023-05-15 04:51] LABS: BASOPHILS % (AUTO) 0 % (0-10); EOSINOPHILS # (AUTO) 0.1 10^3/uL (0.0-0.3); EOSINOPHILS % (AUTO) 2 % (0-10); HEMATOCRIT 24 % (40-54); HEMOGLOBIN 8.3 g/dL (13.3-17.7); LYMPHOCYTES # (AUTO) 1.1 10^3/uL (1.0-4.0); LYMPHOCYTES % (AUTO) 23 % (12-44); MEAN CORPUSCULAR HEMOGLOBIN 36 pg (25-34); MEAN CORPUSCULAR HGB CONC 35 g/dL (32-36); MEAN CORPUSCULAR VOLUME 103 fL (80-99); MEAN PLATELET VOLUME 9.7 fL (9.0-12.2); MONOCYTES # (AUTO) 0.3 10^3/uL (0.0-1.0); MONOCYTES % (AUTO) 6 % (0-12); NEUTROPHILS # (AUTO) 3.2 10^3/uL (1.8-7.8); NEUTROPHILS % (AUTO) 67 % (42-75); PLATELET COUNT 167 10^3/uL (130-400); WHITE BLOOD COUNT 4.8 10^3/uL (4.3-11.0)
[2023-05-15 04:59] LABS: ALBUMIN 2.3 GM/DL (3.2-4.5)
[2023-05-15 05:00] LABS: POTASSIUM 3.6 MMOL/L (3.6-5.0)
[2023-05-15 05:01] LABS: CALCIUM 6.2 MG/DL (8.5-10.1)
[2023-05-15 05:02] LABS: TOTAL PROTEIN 4.6 GM/DL (6.4-8.2)
[2023-05-15 05:06] LABS: CREATININE SERUM 0.59 MG/DL (0.60-1.30)
[2023-05-15 05:08] LABS: MAGNESIUM 1.5 MG/DL (1.6-2.4)
[2023-05-15] MEDS: PANTOPRAZOLE 40 MG (PROTONIX) TAB PO SCH (08:32)
[2023-05-15] MEDS: DOCUSATE SODIUM 100 MG (COLACE) CAP PO SCH ×2 (08:32→19:55)
[2023-05-15] MEDS: CALCIUM CARBONATE 600 MG (CALCARB) TAB PO SCH ×2 (08:32→19:55)
[2023-05-15 08:43] VITALS: BP 144/68
--- NOTE | 2023-05-15 09:05 | Progress Note - Surgery ---
Subjective Date Seen by a Provider: May 15, 2023 Time Seen by a Provider: 09:00 Subjective/Events-last exam Doing good. Tolerating diet. Hgb 8.3. Denies n/v fever sweats chills shortness of breath or chest pain. Objective Exam Vital Signs Date Time Temp Pulse Resp B/P (MAP) Pulse Ox O2 Delivery O2 Flow Rate FiO2 05/15/23 08:43 37.0 93 18 144/68 (93) 98 Room Air 05/15/23 03:20 36.8 76 16 133/74 (93) 98 Room Air 0.00 0.00 05/14/23 23:41 36.8 84 16 129/73 (91) 98 Room Air 05/14/23 19:36 Room Air 05/14/23 19:27 36.8 95 16 144/81 (102) 98 Room Air 05/14/23 15:57 37.0 93 17 128/67 (87) 98 Room Air 05/14/23 11:43 36.9 87 18 125/71 (89) 98 Room Air I & O 05/15/23 06:59 Intake Total 2080 ml Balance 2080 ml Capillary Refill : Less Than 3 Seconds General Appearance: No Apparent Distress, WD/WN, Chronically ill HEENT: PERRL/EOMI, Normal ENT Inspection Neck: Full Range of Motion, Non Tender, Supple Respiratory: Chest Non Tender, No Accessory Muscle Use, No Respiratory Distress Cardiovascular: Regular Rate, Rhythm, No JVD Gastrointestinal: non tender, soft Extremity: Normal Capillary Refill, Normal Inspection, No Pedal Edema Neurologic/Psychiatric: Alert, No Motor/Sensory Deficits Skin: Warm/Dry, Ecchymosis, Pallor Lymphatic: No Adenopathy Results Lab Laboratory Tests 05/14/23 10:00: 05/15/23 04:45: White Blood Count 4.8, Red Blood Count 2.30L, Hemoglobin 8.3L, Hematocrit 24L, Mean Corpuscular Volume 103H, Mean Corpuscular Hemoglobin 36H, Mean Corpuscular Hemoglobin Concent 35, Red Cell Distribution Width 15.3H, Platelet Count 167, Mean Platelet Volume 9.7, Immature Granulocyte % (Auto) 2, Neutrophils (%) (Auto) 67, Lymphocytes (%) (Auto) 23, Monocytes (%) (Auto) 6, Eosinophils (%) (Auto) 2, Basophils (%) (Auto) 0, Neutrophils # (Auto) 3.2, Lymphocytes # (Auto) 1.1, Monocytes # (Auto) 0.3, Eosinophils # (Auto) 0.1, Basophils # (Auto) 0.0, Immature Granulocyte # (Auto) 0.1, Sodium Level 138, Potassium Level 3.6, Chloride Level 111H, Carbon Dioxide Level 21, Anion Gap 6, Blood Urea Nitrogen 8, Creatinine 0.59L, Estimat Glomerular Filtration Rate 104, BUN/Creatinine Ratio 14, Glucose Level 96, Calcium Level 6.2L, Corrected Calcium 7.6L, Magnesium Level 1.5L, Total Bilirubin 1.0, Aspartate Amino Transf (AST/SGOT) 25, Alanine Aminotransferase (ALT/SGPT) 30, Alkaline Phosphatase 64, Total Protein 4.6L, Albumin 2.3L Microbiology 05/08/23 MRSA Screen - Final, Complete MRSA not isolated 05/08/23 Urine Culture - Final, Complete NO GROWTH 05/08/23 Blood Culture - Final, Complete No growth Assessment/Plan Assessment/Plan Assessment/Plan Anemia likely from GI bleed. Esophagitis Cholelithiasis Hx alcohol use - family reports heavy quit about 1 month ago possibly Weight loss. esophageal ulceration s/p egd c biopsy Rectal ulceration and anal rectal ischemia possible mass Patient EGD and colonoscopy biopsies. Awaiting pathology. Patient with gallstones, but not tender on exam so more likely incidental finding Hgb stable CIWA Esophageal ulceration-protonix Regular diet Likely home Clinical Quality Measures DVT/VTE Risk/Contraindication: Contraindications-Pharm: Other *list below* Other: RAINE Aguirre DO May 15, 2023 09:05
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
--- NOTE | 2023-05-15 10:27 | Physical Therapy Daily Note ---
PT Daily Note-Current Subjective Pt found laying in bed upon entry. Agreed to PT. Reports that he is not having any pain today. Pt states that his ambulation balance is not as good as it used to be. Pain Section J - Health Conditions 1. Rarely or not at all 2. Occasionally 3. Frequently 4. Almost constantly 8. Unable to answer Pain Effect on Sleep: 1 Pain Interference with Therapy: 1 Pain Interference w/Day-to-Day: 1 Mental Status Patient Orientation: Person, Place Transfers SCALE: Activities may be completed with or without assistive devices. 0-Hgyehbvsbw-yglvksn completes the activity by him/herself with no assistance from a helper. 5-Set-up or Clean-up Assistance-helper sets up or cleans up; patient completes activity. [place] assists only prior to or following the activity. 4-Supervision or Touching Assistance-helper provides verbal cues and/or touching/steadying and/or contact guard assistance as patient completes activity. Assistance may be provided throughout the activity or intermittently. 3-Partial/Moderate Assistance-helper does LESS THAN HALF the effort. [place] lifts, holds or supports trunk or limbs, but provides less than half the effort. 2-Substantial/Maximal Assistance-helper does MORE THAN HALF the effort. [place] lifts or holds trunk or limbs and provides more than half the effort. 7-Xqlpvahdp-lexhru does ALL the effort. Patient does none of the effort to complete the activity. Or, the assistance of 2 or more helpers is required for the patient to complete the activity. If activity was not attempted, code reason: 7-Patient Refused. 9-Not Applicable-not attempted and the patient did not perform the activity before the current illness, exacerbation or injury. 10-Not Attempted due to Environmental Limitations-(lack of equipment, weather restraints, etc.). 88-Not Attempted due to Medical Conditions or Safety Concerns. Lying to Sitting/Side of Bed(Q: 6 Sit to Stand (QC): 4 Toilet Transfer (QC): 4 Pt independent /c lying to sitting transfer. SBA /c sit to stand and toilet transfers for safety due to strength and balance deficits. Gait Training Does the Patient Walk?: Yes Distance: 60 Walk 10 feet (QC): 4 Walk 50 ft with 2 Turns(QC): 4 Gait Assistive Device: FWW Gait training completed /c CGA for safety due to strength and balance deficits. Slight unsteadiness demonstrated /c gait cycle. No loss of balance. Ambulated 60 feet /c use of FWW. Assessment Current Status: Good Progress Pt displays good tolerance to gait training. Ambulates up to 60 feet /c use of FWW. No loss of balance displayed. Independent /c sit to lying transfer. SBA /c toilet and sit to stand transfers. CGA /c ambulation. Continue to progress per POC to improve strength, endurance, and functional ability. PT Associate Professor Of Criminal Justice Goals Snf Goals PT Snf Goals Time Frame: May 18, 2023 Roll Left & Right (QC): 6 Sit to Lying (QC): 6 Lying-Sitting on Side/Bed(QC): 6 Sit to Stand (QC): 6 Chair/Pnx-gq-Rcwfo Xfer(QC): 6 Toilet Transfer (QC): 6 Walk 10 feet (QC): 6 Walk 50ft with 2 Turns (QC): 6 Walk 150 ft (QC): 6 PT Plan Treatment/Plan Treatment Plan: Continue Plan of Care Treatment Plan: Education, Functional Activity Ana, Functional Strength, Gait, Safety, Therapeutic Exercise, Transfers Treatment Duration: May 18, 2023 Frequency: 5 times per week Estimated Hrs Per Day: .25 hour per day Patient and/or Family Agrees t: Yes Time Time In: 914 Time Out: 935 DATE: May 15, 2023 Total Billed Treatment Time: 21 Total Billed Treatment 1 visit' 'FA x GRAYSON CASTRO PTA May 15, 2023 10:27
[2023-05-15 11:03] VITALS: BP 132/70
[2023-05-15 15:56] VITALS: BP 144/80
--- NOTE | 2023-05-15 17:16 | Progress Note ---
Subjective Subjective/Events-last exam No concerns today. States that he is not able to return to his house because of how messy and dirty it is. Tolerating PO diet. He has been up with a walker. Review of Systems General: Fatigue Pulmonary: No Dyspnea Cardiovascular: No: Chest Pain, Palpitations, Edema Gastrointestinal: No: Nausea, Vomiting, Abdominal Pain, Diarrhea, Constipation Neurological: Weakness Objective Exam Last Set of Vital Signs Vital Signs Date Time Temp Pulse Resp B/P (MAP) Pulse Ox O2 Delivery O2 Flow Rate FiO2 05/15/23 15:56 37.2 87 16 144/80 (101) 98 Room Air 05/15/23 03:20 0.00 0.00 05/13/23 18:34 21 Capillary Refill : Less Than 3 Seconds I&O Intake and Output 05/15/23 00:00 Intake Total 1430 ml Output Total 200 ml Balance 1230 ml Intake Oral 1430 ml Output Urine Total 200 ml # Voids 6 # Bowel Movements 2 General: Alert, Oriented X3, No Acute Distress Lungs: Clear to Auscultation, Normal Air Movement Heart: Regular Rate, No Murmurs Abdomen: Normal Bowel Sounds, Soft, No Tenderness Extremities: No Edema, No Tenderness/Swelling Neuro: Normal Speech Results/Procedures Lab Laboratory Tests 05/15/23 04:45: White Blood Count 4.8, Red Blood Count 2.30L, Hemoglobin 8.3L, Hematocrit 24L, Mean Corpuscular Volume 103H, Mean Corpuscular Hemoglobin 36H, Mean Corpuscular Hemoglobin Concent 35, Red Cell Distribution Width 15.3H, Platelet Count 167, Mean Platelet Volume 9.7, Immature Granulocyte % (Auto) 2, Neutrophils (%) (Auto) 67, Lymphocytes (%) (Auto) 23, Monocytes (%) (Auto) 6, Eosinophils (%) (Auto) 2, Basophils (%) (Auto) 0, Neutrophils # (Auto) 3.2, Lymphocytes # (Auto) 1.1, Monocytes # (Auto) 0.3, Eosinophils # (Auto) 0.1, Basophils # (Auto) 0.0, Immature Granulocyte # (Auto) 0.1, Sodium Level 138, Potassium Level 3.6, Chloride Level 111H, Carbon Dioxide Level 21, Anion Gap 6, Blood Urea Nitrogen 8, Creatinine 0.59L, Estimat Glomerular Filtration Rate 104, BUN/Creatinine Ratio 14, Glucose Level 96, Calcium Level 6.2L, Corrected Calcium 7.6L, Magnesium Level 1.5L, Total Bilirubin 1.0, Aspartate Amino Transf (AST/SGOT) 25, Alanine Aminotransferase (ALT/SGPT) 30, Alkaline Phosphatase 64, Total Protein 4.6L, Albumin 2.3L Microbiology 05/08/23 MRSA Screen - Final, Complete MRSA not isolated 05/08/23 Urine Culture - Final, Complete NO GROWTH 05/08/23 Blood Culture - Final, Complete No growth Assessment/Plan Assessment/Plan (1) Acute kidney injury Status: Resolved (2) Acute metabolic encephalopathy Status: Resolved (3) Hypotension Status: Resolved Assessment & Plan: Initially requiring pressors, now stable. Qualifiers: Qualified Codes: I95.9 - Hypotension, unspecified (4) GI bleed Status: Resolved Assessment & Plan: s/p EG and colo with esophagitis and rectal ulceration. No further bleeding, hemoglobin stable. On PPI, pathologies pending. Qualifiers: Qualified Codes: K92.2 - Gastrointestinal hemorrhage, unspecified (5) Esophagitis Status: Chronic Assessment & Plan: Pantoprazole BID (6) Rectal ulceration Status: Acute Assessment & Plan: Biopsy of possible mass pending. (7) Cholelithiasis Status: Chronic Assessment & Plan: Appreciate Surgery recommendations, not thought to be acute at this time. (8) Elevated lactic acid level Status: Resolved Assessment & Plan: Suspect secondary to hypovolemia/GI bleed. Resolved. (9) Acute cystitis with hematuria Status: Acute Assessment & Plan: UA consistent with infection, culture with no growth. Completed course of ceftriaxone. (10) Debility Status: Chronic Assessment & Plan: PT, OT. Anticipate possible d/c with home health tomorrow. 05/15: Patient now stating that he can not return home at this time, spoke with patient and son and will work on SNF placement due to no safe conditions at his home (11) Hypocalcemia Status: Acute Assessment & Plan: 05/15: Likely 2/2 to severe Vit D deficiency (12) Vitamin D deficiency Status: Acute Assessment & Plan: 05/15: Will start high dose replacement at discharge, we do not have it on formulary at the hospital, started daily dosing currently Clinical Quality Measures DVT/VTE Risk/Contraindication: Contraindications-Pharm: Other *list below* Other: CORNELL Causey MD May 15, 2023 17:16
[2023-05-15] MEDS: VITAMIN D3 10 MCG (400 UNITS) TABLET PO SCH (18:05)
[2023-05-15 19:25] VITALS: BP 140/75
[2023-05-15 23:02] VITALS: BP 129/75
[2023-05-16 04:00] VITALS: BP 117/68
[2023-05-16 05:12] LABS: BASOPHILS % (AUTO) 0 % (0-10); EOSINOPHILS # (AUTO) 0.1 10^3/uL (0.0-0.3); EOSINOPHILS % (AUTO) 1 % (0-10); HEMATOCRIT 25 % (40-54); HEMOGLOBIN 8.4 g/dL (13.3-17.7); LYMPHOCYTES # (AUTO) 0.9 10^3/uL (1.0-4.0); LYMPHOCYTES % (AUTO) 20 % (12-44); MEAN CORPUSCULAR HEMOGLOBIN 35 pg (25-34); MEAN CORPUSCULAR HGB CONC 34 g/dL (32-36); MEAN CORPUSCULAR VOLUME 103 fL (80-99); MEAN PLATELET VOLUME 9.7 fL (9.0-12.2); MONOCYTES # (AUTO) 0.3 10^3/uL (0.0-1.0); MONOCYTES % (AUTO) 5 % (0-12); NEUTROPHILS # (AUTO) 3.3 10^3/uL (1.8-7.8); NEUTROPHILS % (AUTO) 72 % (42-75); PLATELET COUNT 179 10^3/uL (130-400); WHITE BLOOD COUNT 4.6 10^3/uL (4.3-11.0)
[2023-05-16 05:18] LABS: ALBUMIN 2.4 GM/DL (3.2-4.5)
[2023-05-16 05:19] LABS: POTASSIUM 3.5 MMOL/L (3.6-5.0)
[2023-05-16 05:20] LABS: CALCIUM 6.7 MG/DL (8.5-10.1)
[2023-05-16 05:21] LABS: TOTAL PROTEIN 4.8 GM/DL (6.4-8.2)
[2023-05-16 05:25] LABS: CREATININE SERUM 0.62 MG/DL (0.60-1.30)
[2023-05-16 05:28] LABS: MAGNESIUM 1.3 MG/DL (1.6-2.4)
[2023-05-16] MEDS: VITAMIN D3 10 MCG (400 UNITS) TABLET PO SCH (05:30)
[2023-05-16] MEDS: THIAMINE 100 MG (VITAMIN B-1) TAB PO SCH (05:30)
[2023-05-16] MEDS: MULTIVIT W/MINERALS TAB (THERAGRAN M) PO SCH (05:30)
[2023-05-16 07:25] VITALS: BP 128/76
[2023-05-16] MEDS: CALCIUM CARBONATE 600 MG (CALCARB) TAB PO SCH (08:41)
[2023-05-16] MEDS: DOCUSATE SODIUM 100 MG (COLACE) CAP PO SCH (08:41)
[2023-05-16] MEDS: PANTOPRAZOLE 40 MG (PROTONIX) TAB PO SCH (08:41)
--- NOTE | 2023-05-16 09:14 | Occupational Ther Daily Note ---
OT Current Status-Daily Note Subjective Resting in recliner, requesting assist w/ sock change, patient wanting shower later today Pain Numeric Pain Scale: 0-No Pain Mental Status/Objective Patient Orientation: Person, Situation PICC line no line to port ADL-Treatment OT notified staff of attention needed to bathroom floor on OT arrival Therapy Code Descriptions/Definitions Functional [place] Measure: 0=Not Assessed/NA 4=Minimal Assistance 1=Total Assistance 5=Supervision or Setup 2=Maximal Assistance 6=Modified [place] 3=Moderate Assistance 7=Complete IndependenceSCALE: Activities may be completed with or without assistive devices. 9-Ypijfejcjm-muxnfni completes the activity by him/herself with no assistance from a helper. 5-Set-up or Clean-up Assistance-helper sets up or cleans up; patient completes activity. [place] assists only prior to or following the activity. 4-Supervision or Touching Assistance-helper provides verbal cues and/or touching/steadying and/or contact guard assistance as patient completes activ ity. Assistance may be provided throughout the activity or intermittently. 3-Partial/Moderate Assistance-helper does LESS THAN HALF the effort. [place] lifts, holds or supports trunk or limbs, but provides less than half the effort. 2-Substantial/Maximal Assistance-helper does MORE THAN HALF the effort. [place] lifts or holds trunk or limbs and provides more than half the effort. 4-Daqcrymzf-vogmup does ALL the effort. Patient does none of the effort to complete the activity. Or, the assistance of 2 or more helpers is required for the patient to complete the activity. If activity was not attempted, code reason: 7-Patient Refused. 9-Not Applicable-not attempted and the patient did not perform the activity before the current illness, exacerbation or injury. 10-Not Attempted due to Environmental Limitations-(lack of equipment, weather restraints, etc.). 88-Not Attempted due to Medical Conditions or Safety Concerns. Eating (QC): 6 Oral Hygiene (QC): 5 (standing at sink, FWW) Shower/Bathe Self (QC): 7 (later today) Upper Body Dressing (QC): 5 Lower Body Dressing (QC): 4 On/Off Footwear: 5 (evidence of bowel that was stepped in bathroom floor, patient chsangerd socks w/ VCs in recline position) Toileting Hygiene (QC): 4 Toilet Transfer (QC): 4 Education OT Patient Education: Correct positioning, Modified ADL techniques, Progress toward Goal/Update tx plan, Purpose of tx/functional activities, Reviewed precautions, Rehab process, Safety issues, Transfer techniques, Use of adapted equipment Teaching Recipient: Patient Teaching Methods: Demonstration, Discussion OT Residential Goals Residential Goals 1=Demonstrate adherence to instructed precautions during ADL tasks. 2=Patient will verbalize/demonstrate understanding of assistive d evices/modifications for ADL. 3=Patient will improve strength/tolerance for activity to enable patient to perform ADL's. OT Education/Plan Problem List/Assessment Assessment: Decreased Activ Tolerance, Decreased Safety Aware, Impaired Self- Care Skills Discharge Recommendations Plan/Recommendations: Continue POC Treatment Plan/Plan of Care Treatment,Training & Education: Yes Patient would benefit from OT for education, treatment and training to promote independence in ADL's, mobility, safety and/or upper extremity function for ADL's. Plan of Care: ADL Retraining, Functional Mobility, Group Exercise/Act as Ind, OTHER (Eval only) Treatment Duration: May 13, 2023 Frequency: 1 time per week Estimated Hrs Per Day: .25 hour per day Agreement: Yes Rehab Potential: Good Time Start Time: 09:02 Stop Time: 09:20 DATE: May 16, 2023 Total Time Billed (hr/min): 18 Billed Treatment Time ADL 18 min ANAIS SMITH OT May 16, 2023 09:14
--- NOTE | 2023-05-16 09:42 | Physical Therapy Daily Note ---
PT Daily Note-Current Subjective Pt found laying in bed upon entry. Agreed to PT. States that he would like to move to the recliner post-treatment. Pain Section J - Health Conditions 1. Rarely or not at all 2. Occasionally 3. Frequently 4. Almost constantly 8. Unable to answer Pain Effect on Sleep: 1 Pain Interference with Therapy: 1 Pain Interference w/Day-to-Day: 1 Mental Status Patient Orientation: Person, Place Transfers SCALE: Activities may be completed with or without assistive devices. 7-Knmtlvtzwk-dqlbygi completes the activity by him/herself with no assistance fr om a helper. 5-Set-up or Clean-up Assistance-helper sets up or cleans up; patient completes activity. [place] assists only prior to or following the activity. 4-Supervision or Touching Assistance-helper provides verbal cues and/or touching/steadying and/or contact guard assistance as patient completes activity. Assistance may be provided throughout the activity or intermittently. 3-Partial/Moderate Assistance-helper does LESS THAN HALF the effort. [place] lifts, holds or supports trunk or limbs, but provides less than half the effort. 2-Substantial/Maximal Assistance-helper does MORE THAN HALF the effort. [place] lifts or holds trunk or limbs and provides more than half the effort. 1-Scbmqlypg-pnvcpz does ALL the effort. Patient does none of the effort to complete the activity. Or, the assistance of 2 or more helpers is required for the patient to complete the activity. If activity was not attempted, code reason: 7-Patient Refused. 9-Not Applicable-not attempted and the patient did not perform the activity before the current illness, exacerbation or injury. 10-Not Attempted due to Environmental Limitations-(lack of equipment, weather restraints, etc.). 88-Not Attempted due to Medical Conditions or Safety Concerns. Lying to Sitting/Side of Bed(Q: 6 Sit to Stand (QC): 4 Toilet Transfer (QC): 4 Pt independent /c all completed bed mobility. SBA /c toilet and sit to stand transfers for safety due to strength and balance deficits. Gait Training Does the Patient Walk?: Yes Distance: 60 Walk 10 feet (QC): 4 Walk 50 ft with 2 Turns(QC): 4 Gait Assistive Device: FWW Pt ambulates /c use of FWW and requires CGA for safety due to strength and balance deficits. Able to ambulate up to 60 feet before requiring a rest break. Displays unsteadiness during gait training but has not loss of balance. Assessment Current Status: Fair Progress Pt independent /c bed mobility. SBA /c sit to stand and toilet transfers. Displays slightly unsteady gait pattern /c good step lengths and requires CGA. Pt able to ambulate up to 60 feet /c use of a FWW. Continue to progress per POC to improve strength, endurance, and functional ability. PT Closing Coordinator Goals [facility] Goals PT Closing Coordinator Goals Time Frame: May 18, 2023 Roll Left & Right (QC): 6 Sit to Lying (QC): 6 Lying-Sitting on Side/Bed(QC): 6 Sit to Stand (QC): 6 Chair/Kcl-xy-Blroa Xfer(QC): 6 Toilet Transfer (QC): 6 Walk 10 feet (QC): 6 Walk 50ft with 2 Turns (QC): 6 Walk 150 ft (QC): 6 PT Plan Treatment/Plan Treatment Plan: Continue Plan of Care Treatment Plan: Education, Functional Activity Ana, Functional Strength, Gait, Safety, Therapeutic Exercise, Transfers Treatment Duration: May 18, 2023 Frequency: 5 times per week Estimated Hrs Per Day: .25 hour per day Patient and/or Family Agrees t: Yes Time Time In: 0830 Time Out: 0846 DATE: May 16, 2023 Total Billed Treatment Time: 16 Total Billed Treatment 1 visit FA x 1 GRAYSON BABCOCK LOBBY ATTENDANT May 16, 2023 09:42
[2023-05-16 11:30] VITALS: BP 138/79
--- NOTE | 2023-05-16 12:34 | Discharge Summary ---
Discharge Summary Hospital Course Hospital Course Date of Admission: May 08, 2023 at 13:48 Admission Diagnosis : Family Physician/Provider: Date of Discharge: 05/16/23 Discharge Diagnosis: Acute Cystitis with Hematuria AKF Acute metabolic Encephalopathy GI Bleed Rectal Ulceration Cholelithesis Hypocalcemia Vit D deficiency Debility Labs and Pending Lab Test: Laboratory Tests 05/16/23 04:55: White Blood Count 4.6, Red Blood Count 2.38L, Hemoglobin 8.4L, Hematocrit 25L, Mean Corpuscular Volume 103H, Mean Corpuscular Hemoglobin 35H, Mean Corpuscular Hemoglobin Concent 34, Red Cell Distribution Width 15.1H, Platelet Count 179, Mean Platelet Volume 9.7, Immature Granulocyte % (Auto) 2, Neutrophils (%) (Auto) 72, Lymphocytes (%) (Auto) 20, Monocytes (%) (Auto) 5, Eosinophils (%) (Auto) 1, Basophils (%) (Auto) 0, Neutrophils # (Auto) 3.3, Lymphocytes # (Auto) 0.9L, Monocytes # (Auto) 0.3, Eosinophils # (Auto) 0.1, Basophils # (Auto) 0.0, Immature Granulocyte # (Auto) 0.1, Sodium Level 136, Potassium Level 3.5L, Chloride Level 110H, Carbon Dioxide Level 20L, Anion Gap 6, Blood Urea Nitrogen 8, Creatinine 0.62, Estimat Glomerular Filtration Rate 103, BUN/Creatinine Ratio 13, Glucose Level 99, Calcium Level 6.7L, Corrected Calcium 8.0L, Magnesium Level 1.3L, Total Bilirubin 1.0, Aspartate Amino Transf (AST/SGOT) 23, Alanine Aminotransferase (ALT/SGPT) 30, Alkaline Phosphatase 69, Total Protein 4.8L, Albumin 2.4L Microbiology 05/08/23 MRSA Screen - Final, Complete MRSA not isolated 05/08/23 Urine Culture - Final, Complete NO GROWTH 05/08/23 Blood Culture - Final, Complete No growth Home Meds Active Reported Diazepam 10 Mg Tablet 10 Mg PO TID PRN Lisinopril-Hctz 20-25 mg Tab (Lisinopril/Hydrochlorothiazide) 20 Mg-25 Mg Tablet 1 Ea PO DAILY LAST FILLED 10-05-2022 #90/90 DAY SUPPLY Skilled NF Admit to: Certification (SNF) I certify that SNF services are required to be given on an inpatient basis because of the above named patient's need for group home care on a continuing basis for the conditions(s) for which he/she was receiving inpatient hospital services prior to his/her transfer to the SNF. Detention Facility Order: Nursing Services, Electric Car Operator-Evaluate & Treat, Physical Therapy-Evaluate & Treat, Wound Care-Eval/Treat Oxygen Delivery Method: Room Air Discharge Diet: Cardiac Diet Daily Activity as Tolerated: Yes Resuscitation Status: Full Code Cornell Fermin May 16, 2023 12:28 Discharge Physical Exam General: Alert, Oriented X3, No Acute Distress Lungs: Clear to Auscultation, Normal Air Movement Heart: Regular Rate, No Murmurs Abdomen: Normal Bowel Sounds, Soft, No Tenderness, No Masses Extremities: No Edema, No Tenderness/Swelling Skin: No Rashes Neuro: Normal Speech Psych/Mental Status: Mental Status NL, Mood NL CORNELL FERMIN MD May 16, 2023 12:34
[2023-05-16] MEDS ORDERED: CHOL125C6 PO (12:38)
[2023-05-16] MEDS ORDERED: MULT-1137 PO (12:38)
[2023-05-16] MEDS ORDERED: ACET325T49 PO (12:38)
[2023-05-16] MEDS ORDERED: CLC600T PO (12:38)
[2023-05-16] MEDS ORDERED: PANT40TA52 PO (12:38)
== END 2023-05-16 14:20 | DRG 380 ==
LOC: EDUNIT# 09:34 → ER FS 09:36 → ICU 13:48 → 4TH 05-12 09:26
PROVIDERS: ADMIT Internal Medicine; ATTEND Family Medicine
PROC: 0DB38ZX Excision of Lower Esophagus, Via Natural or Artificial Opening Endoscopic, Diagnostic (ICD-10-PCS; principal; 2023-05-10 15:48)
PROC: 0DBP8ZX Excision of Rectum, Via Natural or Artificial Opening Endoscopic, Diagnostic (ICD-10-PCS; 2023-05-11)
DX: K22.11 Ulcer of esophagus with bleeding (principal); G93.41 Metabolic encephalopathy; R57.1 Hypovolemic shock; N17.9 Acute kidney failure, unspecified; N30.01 Acute cystitis with hematuria; K62.6 Ulcer of anus and rectum; E87.1 Hypo-osmolality and hyponatremia; K80.20 Calculus of gallbladder without cholecystitis without obstruction; E83.51 Hypocalcemia; R53.81 Other malaise; I10 Essential (primary) hypertension; K21.9 Gastro-esophageal reflux disease without esophagitis; F41.9 Anxiety disorder, unspecified; E86.0 Dehydration; F17.200 Nicotine dependence, unspecified, uncomplicated; F10.20 Alcohol dependence, uncomplicated; D64.9 Anemia, unspecified; E83.39 Other disorders of phosphorus metabolism; E87.6 Hypokalemia; K56.41 Fecal impaction; R63.4 Abnormal weight loss; K62.89 Other specified diseases of anus and rectum; Z68.22 Body mass index [BMI] 22.0-22.9, adult
CPT/HCPCS: 36415; 36569; 51702; 70450; 71045; 71260; 72125; 74177; 76705; 76937; 80053; 80306; 80320; 81000; 82140; 82274; 82306; 82947; 83605; 83690; 83735; 83880; 83970; 84100; 84484; 85007; 85014; 85018; 85025; 85027; 85610; 85730; 87040; 87081; 87088; 93005; 93041; 94760; 96361; 96365; 96375; Q9967